=== PATIENT | male | born 1940 | race Caucasian/White ===

== ENCOUNTER → 2016-09-01 | Outpatient (CLI) | payer BC ==
[~2016-09-01] MED LIST: ASCO10003 PO; LUTE20CA; MULT-506 PO; PRIM50TA29 PO
== END | disposition home or self-care (01) ==
LOC: C.LABBC 09:50
PROVIDERS: ATTEND Urology
DX: N40.1 Benign prostatic hyperplasia with lower urinary tract symptoms (principal)

== ENCOUNTER → 2017-01-15 | Outpatient (CLI) | payer BC ==
[2017-01-15 13:35] LABS: BASO % 0.6 %; BASO ABS # 0.04 K/uL (0-0.2); COMPLETE YES; EOS % 4.9 %; IG% 0.2 %; LYMPH % 27.1 %; LYMPH ABS # 1.72 K/uL (1.2-3.4); MEAN CORPUSCULAR HEMOGLOBIN 30.3 pg (25-34); MEAN CORPUSCULAR HGB CONC 32.9 g/dl (32-36); MEAN PLATELET VOLUME 10.1 fL (7.4-10.4); MONO % 7.9 %; NEUT % 59.3 %; PLATELET COUNT 207 K/uL (130-400); RED BLOOD COUNT 5.22 M/uL (4.7-6.1); WHITE BLOOD COUNT 6.35 K/uL (4.8-10.8)
[2017-01-15 13:54] LABS: ALT/SGPT 32 U/L (12-78); AST/SGOT 23 U/L (15-37); BLOOD UREA NITROGEN 14 mg/dl (7-18); BUN/CREATININE RATIO 14.2 (10-20); CALCIUM 8.3 mg/dl (8.5-10.1); CARBON DIOXIDE 30 mmol/L (21-32); CHLORIDE 110 mmol/L (98-107); GLUCOSE 97 mg/dl (70-99); POTASSIUM 4.3 mmol/L (3.5-5.1); SODIUM 145 mmol/L (136-145)
[2017-01-15 14:05] LABS: ALB/GLOB RATIO 1.2 (0.9-2); ALKALINE PHOSPHATASE 64 U/L (45-117); CHOLESTEROL 160 mg/dl (0-200); CHOLESTEROL/HDL RATIO 3.1; HDL CHOLESTEROL 52 mg/dl; LDL CHOLESTEROL CALCULATED 92 mg/dl; TRIGLYCERIDES 78 mg/dl (0-150); VERY LOW DENSITY LIPOPROT CALC 16 mg/dl
== END ==
LOC: C.LABBC 10:18
PROVIDERS: ATTEND Internal Medicine Pulmonary Disease
DX: Z00.00 Encounter for general adult medical examination without abnormal findings (principal); N40.1 Benign prostatic hyperplasia with lower urinary tract symptoms; G25.0 Essential tremor

== ENCOUNTER → 2017-04-01 | Outpatient (CLI) | payer BC ==
[2017-04-01 16:34] LABS: LYME DISEASE AB IGG NEG (NEG); LYME DISEASE AB IGM NEG (NEG)
== END | disposition home or self-care (01) ==
LOC: C.LAB1850 14:52
PROVIDERS: ATTEND Physician Assistant Medical
DX: R51 Headache (principal)

== ENCOUNTER → 2017-06-07 | Outpatient (CLI) | payer BC | END | disposition home or self-care (01) | LOC: C.LABBC 09:53 | PROVIDERS: ATTEND Urology | DX: N40.1 Benign prostatic hyperplasia with lower urinary tract symptoms (principal); R97.20 Elevated prostate specific antigen [PSA] ==

== ENCOUNTER → 2017-07-09 | Outpatient (CLI) | payer BC ==
[2017-07-09 15:25] LABS: LYME DISEASE AB IGG NEG (NEG)
[2017-07-09 15:34] LABS: LYME DISEASE AB IGM POS (NEG)
== END | disposition home or self-care (01) ==
LOC: C.LABBC 10:42
PROVIDERS: ATTEND Physician Assistant Medical
DX: T14.8XXA Other injury of unspecified body region, initial encounter (principal); W57.XXXA Bitten or stung by nonvenomous insect and other nonvenomous arthropods, initial encounter

== ENCOUNTER 2017-12-27 16:18 | Inpatient (IN) | payer BC, OTHER ==
[~2017-12-27] VITALS: Ht 175.3 cm; Wt 41.5 kg
[2017-12-27 17:48] LABS: BASO % 0.6 %; BASO ABS # 0.06 K/uL (0-0.2); EOS % 3.2 %; HEMATOCRIT 50.3 % (42-52); HEMOGLOBIN 17.6 g/dL (14.0-18.0); IG# 0.03 K/uL (0.00-0.02); LYMPH % 16.8 %; LYMPH ABS # 1.58 K/uL (1.2-3.4); MEAN CELL VOLUME 92.8 fL (80-100); MEAN CORPUSCULAR HEMOGLOBIN 32.5 pg (25-34); MEAN PLATELET VOLUME 10.2 fL (7.4-10.4); MONO % 6.3 %; MONO ABS # 0.59 K/uL (0.11-0.59); NEUT % 72.8 %; NEUT ABS # 6.84 K/uL (1.4-6.5); PLATELET COUNT 187 K/uL (130-400); RED CELL DISTRIBUTION WIDTH CV 13.8 % (11.5-14.5); RED CELL DISTRIBUTION WIDTH SD 46.7 fL (36.4-46.3)
--- NOTE | 2017-12-27 17:48 | EMERGENCY ROOM VISIT NOTE ---
History Report prepared by Jacqueline: Ravi Pisano Under the Supervision of: Dr. Popeye Prieto M.D. First contact with patient: 17:21 Chief Complaint: HEADACHE Stated Complaint: HEADACHE- PERIPHERAL VISION IMPAIRED- DIZZY History of Present Illness The patient is a 77 year old male who presents to the Emergency Room with complaints of a persistent headache on both sides starting this morning when he woke up. He currently rates his discomfort as a 6-7/10 in severity. The patient states that he felt fine this morning, and he woke up with the headache, He also reports that he has a loss of vision in his right peripheral vision. He denies any speech difficulties, thinking difficulties, and any weakness in his arms or legs. The patient has a history of macular degeneration, though it has been under control for a long time. He is not on any blood thinners, and he has no history of A-fib or A-Flutter, though he take propranolol for tremor. The patient states that he took two Tylenol this morning, though nothing has helped the pain or his vision. Source of History: patient Onset: this morning Position: head Symptom Intensity: 6-7/10 Quality: ache Timing: other (persistent) Modifying Factors (Relieving): other (nothing) Associated Symptoms: No weakness Note: Associated symptoms: Peripheral vision loss in his right eye. Review of Systems See HPI for pertinent positives & negatives. A total of 10 systems reviewed and were otherwise negative. Past Medical & Surgical Medical Problems: (1) Macular degeneration Social History Smoking Status: Never Smoker Marital Status: Housing Status: lives with family Occupation Status: retired Current/Historical Medications Scheduled Ascorbic Acid (Vitamin C), MG PO DAILY Calcium Carbonate-Cholecalcife (Caltrate 600+D), 1 TAB PO DAILY Finasteride (Finasteride), 5 MG PO DAILY Lutein (Lutein), MG DAILY Multivitamin (Multivitamin), 1 TAB PO DAILY Propranolol (Inderal), 20 MG PO DAILY Allergies Coded Allergies: Sulfa Antibiotics (Verified Allergy, Unknown, HIVES, 12/27/17) Uncoded Allergies: [id number] (Allergy, Unknown, HIVES, 01/18/15) Sulfa Antibiotics Physical Exam Vital Signs Date Time Temp Pulse Resp B/P (MAP) Pulse Ox O2 Delivery O2 Flow Rate FiO2 12/27/17 17:26 61 18 151/93 96 Room Air 12/27/17 16:55 61 12/27/17 16:30 36.4 58 20 160/96 95 Physical Exam GENERAL: Patient is in no acute distress. HEENT: No acute trauma, normocephalic atraumatic, mucous membranes moist, no nasal congestion, no scleral icterus. NECK: No stridor, no adenopathy, no meningismus, trachea is midline. LUNGS: Clear to auscultation bilaterally, no wheeze, no rhonchi, breath sounds equal. HEART: Bradycardic with a regular rhythm. No murmur. ABDOMEN: Soft, nontender, bowel sounds positive, no hernias, no peritonitis. EXTREMITIES: No cyanosis or edema, full range of motion of all the joints without pain or difficulty, no signs for acute trauma. NEUROLOGIC: Awake, alert, and oriented x 3. No speech slur or facial droop. No pronator drift or cerebellar dysfunction. Right sided homonymous hemianopsia-- right sided vision in both eyes is absent. SKIN: No rash, no jaundice, no diaphoresis. Medical Decision & Procedures ER Provider Diagnostic Interpretation: Radiology results as stated below per my review and radiologist interpretation: HEAD WITHOUT CONTRAST (CT) CT DOSE: 614.27 mGy.cm HISTORY: Mental status change Stroke TECHNIQUE: Multiaxial CT images of the head were performed without the use of intravenous contrast. A dose lowering technique was utilized adhering to the principles of ALARA. Comparison: None. Findings: The paranasal sinuses and mastoid air cells are clear. The calvarium and skull base are intact. The ventricles and sulci are within normal limits. There is no mass, hematoma, midline shift, or acute infarct. Impression: No acute intracranial abnormality. The above report was generated using voice recognition software. It may contain grammatical, syntax or spelling errors. Electronically signed by: Alexandro Lepe M.D. 12/27/2017 6:01 PM Dictated Date/Time: 12/27/2017 6:01 PM Laboratory Results 12/27/17 16:05 Red Blood Count 5.42, Mean Corpuscular Volume 92.8, Mean Corpuscular Hemoglobin 32.5, Mean Corpuscular Hemoglobin Concent 35.0, Mean Platelet Volume 10.2, Neutrophils (%) (Auto) 72.8, Lymphocytes (%) (Auto) 16.8, Monocytes (%) (Auto) 6.3, Eosinophils (%) (Auto) 3.2, Basophils (%) (Auto) 0.6, Neutrophils # (Auto) 6.84, Lymphocytes # (Auto) 1.58, Monocytes # (Auto) 0.59, Eosinophils # (Auto) 0.30, Basophils # (Auto) 0.06 12/27/17 16:05 Test 12/27/17 16:05 12/27/17 16:55 White Blood Count 9.40 K/uL (4.8-10.8) Red Blood Count 5.42 M/uL (4.7-6.1) Hemoglobin 17.6 g/dL (14.0-18.0) Hematocrit 50.3 % (42-52) Mean Corpuscular Volume 92.8 fL (80-100) Mean Corpuscular Hemoglobin 32.5 pg (25-34) Mean Corpuscular Hemoglobin Concent 35.0 g/dl (32-36) Platelet Count 187 K/uL (130-400) Mean Platelet Volume 10.2 fL (7.4-10.4) Neutrophils (%) (Auto) 72.8 % Lymphocytes (%) (Auto) 16.8 % Monocytes (%) (Auto) 6.3 % Eosinophils (%) (Auto) 3.2 % Basophils (%) (Auto) 0.6 % Neutrophils # (Auto) 6.84 K/uL (1.4-6.5) Lymphocytes # (Auto) 1.58 K/uL (1.2-3.4) Monocytes # (Auto) 0.59 K/uL (0.11-0.59) Eosinophils # (Auto) 0.30 K/uL (0-0.5) Basophils # (Auto) 0.06 K/uL (0-0.2) RDW Standard Deviation 46.7 fL (36.4-46.3) RDW Coefficient of Variation 13.8 % (11.5-14.5) Immature Granulocyte % (Auto) 0.3 % Immature Granulocyte # (Auto) 0.03 K/uL (0.00-0.02) Prothrombin Time 10.9 SECONDS (9.0-12.0) Prothromb Time International Ratio 1.0 (0.9-1.1) Activated Partial Thromboplast Time 25.9 SECONDS (21.0-31.0) Partial Thromboplastin Ratio 1.0 Anion Gap 6.0 mmol/L (3-11) Est Creatinine Clear Calc Drug Dose 63.4 ml/min Estimated GFR () 74.7 Estimated GFR (Non- 64.4 BUN/Creatinine Ratio 12.3 (10-20) Calcium Level 8.4 mg/dl (8.5-10.1) Magnesium Level 2.2 mg/dl (1.8-2.4) Total Bilirubin 1.7 mg/dl (0.2-1) Direct Bilirubin 0.3 mg/dl (0-0.2) Aspartate Amino Transf (AST/SGOT) 31 U/L (15-37) Alanine Aminotransferase (ALT/SGPT) 28 U/L (12-78) Alkaline Phosphatase 72 U/L (45-117) Troponin I < 0.015 ng/ml (0-0.045) Total Protein 7.5 gm/dl (6.4-8.2) Albumin 3.8 gm/dl (3.4-5.0) Thyroid Stimulating Hormone (TSH) 0.937 uIu/ml (0.300-4.500) Urine Color DK YELLOW Urine Appearance CLEAR (CLEAR) Urine pH 6.5 (4.5-7.5) Urine Specific [place] 1.023 (1.000-1.030) Urine Protein NEG (NEG) Urine Glucose (UA) NEG (NEG) Urine Ketones NEG (NEG) Urine Occult Blood NEG (NEG) Urine Nitrite NEG (NEG) Urine Bilirubin NEG (NEG) Urine Urobilinogen NEG (NEG) Urine Leukocyte Esterase NEG (NEG) Laboratory results reviewed by me. Medications Administered Medications (Trade) Dose Ordered Sig/Katlyn Route Start Time Stop Time Status Last Admin Dose Admin Aspirin (Aspirin Chew) 324 mg NOW STAT PO 12/27/17 18:14 12/27/17 18:15 DC 12/27/17 19:20 324 MG ECG Per My Interpretation Indication: other (headache and vision loss) Rate (beats per minute): 54 Rhythm: sinus bradycardia Findings: 1st degree AV block, no ectopy, other (old anterior infarct. No ST elevation or PVC) ED Course 1721: The patient was evaluated in room B7. A complete history and physical exam was performed. 1733: I discussed the patient's case with Dr. Jacy PEÑA Neurology, and she states that the patient should be evaluated by the hospitalist. If the CT does not show blood, then he should be put on aspirin, and he should not get any TPA. 181: Aspirin 324mg PO 184: Upon reexamination the patient is doing fine. I discussed results and treatment plan with the patient. He verbalizes agreement and understanding. The patient will be evaluated for further management. 185: Discussed the patient's case with Dr. Katrin PEÑA Hospitalist. The patient will be evaluated for further management. Medical Decision Differential Diagnoses include: CVA, intracranial bleeding, intracranial mass, retinal damage, vitreous hemorrhage, anemia, electrolyte imbalance, dysrhythmia. There is no leukocytosis or concerning anemia. No significant electrolyte abnormality, kidney failure or hepatitis. The patient appears to be in a euthyroid state. Urinalysis does not show infection. Brain CT shows no acute bleed or mass-effect. EKG shows a sinus bradycardia with a first-degree AV block, no acute ischemic change. Cardiac enzyme testing 1 is not consistent with acute cardiac injury. On exam, there are no focal extremity deficits. There is no speech slur. The patient does have findings consistent with a right -sided homonymous hemianopsia. The patient presents with visual difficulties. I am concerned for a small stroke. He is not a TPA candidate as he is far out of the window for this medication. I did speak with neurology here at our hospital, aspirin orally was recommended, a dose was given. The patient will be brought into our hospital for a stroke workup. Case management has been involved. The on-call hospitalist was consulted. Patient is aware of all his findings. Medication Reconcilliation Current Medication List: was personally reviewed by me Blood Pressure Screening Patient's blood pressure: Elevated blood pressure Monitored by the hospitalist. Consults Time Called: 173 Consulting Physician: Dr. Jacy PEÑA Neurology Returned Call: 173 I discussed the patient's case with Dr. Jacy PEÑA Neurology, and she states that the patient should be evaluated by the hospitalist. If the CT does not show blood, then he should be put on aspirin, and he should not get any TPA. Additional Consults: Time Called: 181 Consulted Physician: Dr. Katrin PEÑA Hospitalist Returned Call: [phone] Additional Comments: Discussed the patient's case with Dr. Katrin Cruz [facility] Hospitalist. The patient will be evaluated for further management. Impression Primary Impression: CVA (cerebral vascular accident) Additional Impression: Right homonymous hemianopsia Scribe Attestation The scribe's documentation has been prepared under my direction and personally reviewed by me in its entirety. I confirm that the note above accurately reflects all work, treatment, procedures, and medical decision making performed by me. Departure Information Dispostion Being Evaluated By Hospitalist Referrals Wayne Barrera M.D. (PCP) Patient Instructions My [facility] Stroke History Time Last Known Well yesterday evening Stroke t-PA Criteria Reviewed Does NOT meet criteria for t-PA Reason t-PA Not Given Treatment not indicated Problem Qualifiers
[2017-12-27 17:56] LABS: ALBUMIN 3.8 gm/dl (3.4-5.0); ALT/SGPT 28 U/L (12-78); AST/SGOT 31 U/L (15-37); BLOOD UREA NITROGEN 14 mg/dl (7-18); CALCIUM 8.4 mg/dl (8.5-10.1); CARBON DIOXIDE 26 mmol/L (21-32); GLUCOSE 94 mg/dl (70-99); SODIUM 141 mmol/L (136-145)
[2017-12-27 18:01] LABS: PTT PATIENT 25.9 SECONDS (21.0-31.0)
--- NOTE | 2017-12-27 18:03 | DIAGNOSTIC IMAGING REPORT ---
HEAD WITHOUT CONTRAST (CT) CT DOSE: 614.27 mGy.cm HISTORY: Mental status change Stroke TECHNIQUE: Multiaxial CT images of the head were performed without the use of intravenous contrast. A dose lowering technique was utilized adhering to the principles of ALARA. Comparison: None. Findings: The paranasal sinuses and mastoid air cells are clear. The calvarium and skull base are intact. The ventricles and sulci are within normal limits. There is no mass, hematoma, midline shift, or acute infarct. Impression: No acute intracranial abnormality. The above report was generated using voice recognition software. It may contain grammatical, syntax or spelling errors. Electronically signed by: Alexandro Lepe M.D. 12/27/2017 6:01 PM Dictated Date/Time: 12/27/2017 6:01 PM
[2017-12-27 18:07] LABS: ALKALINE PHOSPHATASE 72 U/L (45-117); TOTAL PROTEIN 7.5 gm/dl (6.4-8.2)
[2017-12-27] MEDS ORDERED: CALC-354 PO (18:12)
[2017-12-27] MEDS ORDERED: PRS5 PO (18:12)
[2017-12-27] MEDS ORDERED: PROP20TA67 PO (18:12)
[2017-12-27] MEDS ORDERED: ASPIRIN 81 MG CHEW PO STA (18:14)
[2017-12-27] MEDS ORDERED: PHARMACIST DISCHARGE MED REC CONSULT PRN (19:15)
[2017-12-27] MEDS ORDERED: MAGNESIUM HYDROXIDE SUSP 30 ML UDC PO PRN (19:15)
[2017-12-27] MEDS ORDERED: ONDANSETRON INJ 2 MG/ML 2 ML VIAL IV PRN (19:15)
[2017-12-27] MEDS ORDERED: POLYETHYLENE (MIRALAX) 17 GM PACK PO PRN (19:15)
[2017-12-27] MEDS ORDERED: ACETAMINOPHEN 325 MG TAB PO PRN (19:15)
[2017-12-27] MEDS ORDERED: ALUMINUM/MAGNESIUM/SIMETH (MAALOX MAX) 30 ML UDC PO PRN (19:15)
--- NOTE | 2017-12-27 20:03 | History and Physical ---
History & Physical Date & Time of Service: December 27, 2017 at 19:29 Chief Complaint: Headache- Peripheral Vision Impaired- Dizzy Primary Care Physician: Wayne Barrera M.D. History of Present Illness Source: patient, family Mr. Bond is a 77 y/o male with PMHx of Essential Tremor, Heart Murmur, and BPH who presents with R peripheral vision loss and headache that started this AM. Patient states he was in his normal state of health last night upon going to bed. He woke up today around 0630 with a headache that spans the length of his forehead. He also noticed loss of the R peripheral visual burns. He decided to go back to sleep and when he awoke at 1000 his symptoms remained. Patient reports following regularly with his eye doctor and has known macular degeneration but reports this has been stable for years. He is not aware of any other ocular diagnosis. He has never had any surgical procedures on his eyes. As well, he has never had any acute vision loss issues in the past or TIA/CVAs. No associated eye pain or blurring of vision. At this time, visual losses have not worsened or improved. Headache is slightly improved but minimal. He reports having intermittent headaches in the past but no specific migraines. He does report some lightheadedness when walking and thinks its related to visual deficits. He denies any other neurological deficits or imbalances. Past Medical/Surgical History Medical Problems: (1) Macular Degeneration (2) Heart Murmur - Unspecified (3) BPH (4) Elevated PSA (5) Dupuytrens Contracture - R Thumb S/P Repair (6) Inguinal Hernia B/L - S/P Repair (7) Essential Tremor Family History Alzheimers Disease Heart Disease Prostate Cancer Social History Smoking Status: Never Smoker Smokeless Tobacco Use: No Alcohol Use: socially Drug Use: none Marital Status: Occupational Status: retired Allergies Coded Allergies: Sulfa Antibiotics (Verified Allergy, Unknown, HIVES, 12/27/17) Uncoded Allergies: [id number] (Allergy, Unknown, HIVES, 01/18/15) Sulfa Antibiotics Home Medications Scheduled Ascorbic Acid (Vitamin C), MG PO DAILY Calcium Carbonate-Cholecalcife (Caltrate 600+D), 1 TAB PO DAILY Finasteride (Finasteride), 5 MG PO DAILY Lutein (Lutein), MG DAILY Multivitamin (Multivitamin), 1 TAB PO DAILY Propranolol (Inderal), 20 MG PO DAILY Review of Systems Constitutional: + problem reported (frontal headache), No fever, No chills Eyes: + worsening of vision (loss of R eye peripheral vision), No eye pain, No discharge, No diplopia ENT: No hearing loss, No nasal symptoms, No sore throat Respiratory: No cough, No shortness of breath Cardiovascular: No chest pain, No palpitations Abdomen: No pain, No nausea, No vomiting, No diarrhea, No constipation Musculoskeletal: No swelling, No calf pain Genitourinary - Male: No dysuria Neurologic: No weakness, No numbness/tingling, No balance problems Hematologic / Lymphatic: No abnormal bleeding/bruising Physical Exam Vital Signs Date Time Temp Pulse Resp B/P (MAP) Pulse Ox O2 Delivery O2 Flow Rate FiO2 12/27/17 19:24 78 18 156/89 96 Room Air 12/27/17 17:26 61 18 151/93 96 Room Air 12/27/17 16:55 61 12/27/17 16:30 36.4 58 20 160/96 95 General Appearance: WD/WN, no apparent distress Head: normocephalic, atraumatic Eyes: PERRL, EOMI, sclerae normal, + pertinent finding (Loss of R eye peripheral vision to approximately ) ENT: hearing grossly normal Neck: supple, no JVD, trachea midline Respiratory/Chest: lungs clear, normal breath sounds, no respiratory distress, no accessory muscle use Cardiovascular: regular rate, rhythm, + systolic murmur Abdomen/GI: normal bowel sounds, non tender, soft Back: normal inspection Extremities/Musculoskelatal: no pedal edema Neurologic/Psych: no motor/sensory deficits (other than visual loss - see Eyes section), alert, normal mood/affect, oriented x 3, + depressed affect, + disoriented, + pertinent finding (Romberg negative; GARCIA intact) Skin: normal color, warm/dry Diagnostics Laboratory Results Results Past 24 Hours Test 12/27/17 16:05 12/27/17 16:55 Range/Units White Blood Count 9.40 4.8-10.8 K/uL Red Blood Count 5.42 4.7-6.1 M/uL Hemoglobin 17.6 14.0-18.0 g/dL Hematocrit 50.3 42-52 % Mean Corpuscular Volume 92.8 80-100 fL Mean Corpuscular Hemoglobin 32.5 25-34 pg Mean Corpuscular Hemoglobin Concent 35.0 32-36 g/dl Platelet Count 187 130-400 K/uL Mean Platelet Volume 10.2 7.4-10.4 fL Neutrophils (%) (Auto) 72.8 % Lymphocytes (%) (Auto) 16.8 % Monocytes (%) (Auto) 6.3 % Eosinophils (%) (Auto) 3.2 % Basophils (%) (Auto) 0.6 % Neutrophils # (Auto) 6.84 1.4-6.5 K/uL Lymphocytes # (Auto) 1.58 1.2-3.4 K/uL Monocytes # (Auto) 0.59 0.11-0.59 K/uL Eosinophils # (Auto) 0.30 0-0.5 K/uL Basophils # (Auto) 0.06 0-0.2 K/uL RDW Standard Deviation 46.7 36.4-46.3 fL RDW Coefficient of Variation 13.8 11.5-14.5 % Immature Granulocyte % (Auto) 0.3 % Immature Granulocyte # (Auto) 0.03 0.00-0.02 K/uL Prothrombin Time 10.9 9.0-12.0 SECONDS Prothromb Time International Ratio 1.0 0.9-1.1 Activated Partial Thromboplast Time 25.9 21.0-31.0 SECONDS Partial Thromboplastin Ratio 1.0 Sodium Level 141 136-145 mmol/L Potassium Level 4.0 3.5-5.1 mmol/L Chloride Level 109 98-107 mmol/L Carbon Dioxide Level 26 21-32 mmol/L Anion Gap 6.0 3-11 mmol/L Blood Urea Nitrogen 14 7-18 mg/dl Creatinine 1.10 0.60-1.40 mg/dl Est Creatinine Clear Calc Drug Dose 63.4 ml/min Estimated GFR () 74.7 Estimated GFR (Non- 64.4 BUN/Creatinine Ratio 12.3 10-20 Random Glucose 94 70-99 mg/dl Calcium Level 8.4 8.5-10.1 mg/dl Magnesium Level 2.2 1.8-2.4 mg/dl Total Bilirubin 1.7 0.2-1 mg/dl Direct Bilirubin 0.3 0-0.2 mg/dl Aspartate Amino Transf (AST/SGOT) 31 15-37 U/L Alanine Aminotransferase (ALT/SGPT) 28 12-78 U/L Alkaline Phosphatase 72 45-117 U/L Troponin I < 0.015 0-0.045 ng/ml Total Protein 7.5 6.4-8.2 gm/dl Albumin 3.8 3.4-5.0 gm/dl Thyroid Stimulating Hormone (TSH) 0.937 0.300-4.500 uIu/ml Urine Color DK YELLOW Urine Appearance CLEAR CLEAR Urine pH 6.5 4.5-7.5 Urine Specific [place] 1.023 1.000-1.030 Urine Protein NEG NEG Urine Glucose (UA) NEG NEG Urine Ketones NEG NEG Urine Occult Blood NEG NEG Urine Nitrite NEG NEG Urine Bilirubin NEG NEG Urine Urobilinogen NEG NEG Urine Leukocyte Esterase NEG NEG Diagnostic Radiology HEAD WITHOUT CONTRAST (CT) Findings: The paranasal sinuses and mastoid air cells are clear. The calvarium and skull base are intact. The ventricles and sulci are within normal limits. There is no mass, hematoma, midline shift, or acute infarct. Impression: No acute intracranial abnormality. EKG Sinus bradycardia with 1st degree A-V block Anterior infarct (cited on or before 14-APR-1995) Abnormal ECG When compared with ECG of 14-APR-1995 11:56, AK interval has increased Questionable change in initial forces of Anteroseptal leads Nonspecific T wave abnormality now evident in Anterior leads Impression Assessment and Plan Mr. Bond is a 77 y/o male with PMHx of Essential Tremor, Heart Murmur, and BPH who presents with R peripheral vision loss and headache that started this AM R Eye Peripheral Loss and Headache: R/O CVA - Symptoms started at 0630 and haven't changed at this point minus a slight reduction in headache - Head CT unremarkable and will obtain MRI and CTA Head/Neck; Obtain echo with bubble study to assess for shunt - Admit to telemetry for rhythm monitoring - no known arrhythmias - Does have known macular degeneration that has been stable and sees an eye doctor regularly - ASA 81 mg daily; Atorvastatin 40 mg daily; Check Lipid panel and A1c - Consult Neurology - appreciate input Essential Tremor: - Propranolol 20 mg daily BPH: - Proscar 5 mg daily DVT Prophylaxis: Lovenox Code Status: FULL RESUSCITATION Disposition: - PT/OT evaluations Resident Physician Supervision Note: I was present with Dr. Waqas Carroll PA during the history and exam. I discussed the case with the PA and agree with the findings and plan as documented in the note. Any exceptions or clarifications are listed here: 77 y/o M Hx BPH, unspecified murmur presenting with acute visual impairment - appears to have loss of lat field of R eye (right homonymous hemianopsia) - admitted therefore with CVA protocol OE AAO x 3 S1,2 R CTAB NT, ND No CCE field deficit as above - no additional focal findings present P: Neuro consult ASA, Statin MRI/MRA, carotid dopplers pending Assigned to telemetry with neurochecks Documented By: Bruno Wilkes Resuscitation Status VTE Prophylaxis Will order VTE Prophylaxis: Yes
[2017-12-27 22:13] VITALS: BP 163/87; PULSE 60; TEMP 36.5; O2SAT 97
[2017-12-27] MEDS ORDERED: OPTIRAY 320 IV PRN (22:15)
--- NOTE | 2017-12-27 22:21 | DIAGNOSTIC IMAGING REPORT ---
HEAD ANGIO WITH CONTRAST CLINICAL HISTORY: Mental status change Vision loss TECHNIQUE: Transaxial acquisition with multi axial reformatted images COMPARISON STUDY: None FINDINGS: Normal intracranial vasculature. No major stenotic process. All structures of the anterior middle and posterior cerebral circulation are unremarkable. Visualized components of the vertebral basilar system are unremarkable. No aneurysm or dissection. IMPRESSION: Negative study The above report was generated using voice recognition software. It may contain grammatical, syntax or spelling errors. Electronically signed by: Alexandro Lepe M.D. 12/27/2017 10:19 PM Dictated Date/Time: 12/27/2017 10:16 PM
--- NOTE | 2017-12-27 22:23 | DIAGNOSTIC IMAGING REPORT ---
NECK ANGIO WITH CONTRAST HISTORY: Mental status change visual loss TECHNIQUE: Multiaxial CT images of the neck were performed following the intravenous administration of contrast to evaluate the major cervical vessels. Maximum intensity projection images were also obtained. All measurements were calculated based on NASCET criteria. A dose lowering technique was utilized adhering to the principles of ALARA. COMPARISON STUDY: None. FINDINGS: The aortic arch and proximal great vessels are widely patent. There is no significant stenosis, occlusion, or dissection identified within the bilateral common carotid, internal carotid, or vertebral arteries. Minimal/mild scattered plaque formation of the carotid bifurcations. No major stenotic process. No evidence for aneurysm or dissection IMPRESSION: No significant stenosis, occlusion, or dissection identified within the carotid or vertebral arteries. Mild scattered atherosclerotic plaque formation. The above report was generated using voice recognition software. It may contain grammatical, syntax or spelling errors. Electronically signed by: Alexandro Lepe M.D. 12/27/2017 10:22 PM Dictated Date/Time: 12/27/2017 10:20 PM
[2017-12-27 22:35] VITALS: BP 163/87; PULSE 60; TEMP 36.5; O2SAT 97; Ht 175.3 cm; Wt 41.5 kg
[2017-12-27] MEDS: ENOXAPARIN 40 MG/0.4 ML SYR SC SCH (23:54)
[2017-12-28] VITALS (12 sets, daily range): BP systolic 98–171; BP diastolic 61–88; PULSE 54–103; TEMP 36.2–37.2; O2SAT 92–97
[2017-12-28 05:57] LABS: BASO % 0.4 %; BASO ABS # 0.03 K/uL (0-0.2); EOS % 4.1 %; EOS ABS # 0.28 K/uL (0-0.5); HEMATOCRIT 47.5 % (42-52); HEMOGLOBIN 16.2 g/dL (14.0-18.0); IG# 0.01 K/uL (0.00-0.02); LYMPH % 18.6 %; LYMPH ABS # 1.28 K/uL (1.2-3.4); MEAN CELL VOLUME 92.8 fL (80-100); MEAN CORPUSCULAR HEMOGLOBIN 31.6 pg (25-34); MEAN CORPUSCULAR HGB CONC 34.1 g/dl (32-36); MEAN PLATELET VOLUME 9.6 fL (7.4-10.4); MONO % 9.3 %; MONO ABS # 0.64 K/uL (0.11-0.59); NEUT % 67.5 %; NEUT ABS # 4.65 K/uL (1.4-6.5); PLATELET COUNT 147 K/uL (130-400); RED CELL DISTRIBUTION WIDTH CV 13.6 % (11.5-14.5); RED CELL DISTRIBUTION WIDTH SD 46.5 fL (36.4-46.3); WHITE BLOOD COUNT 6.89 K/uL (4.8-10.8)
[2017-12-28 06:27] LABS: CREATININE 0.94 mg/dl (0.60-1.40); POTASSIUM 3.8 mmol/L (3.5-5.1)
[2017-12-28 06:43] LABS: HEMOGLOBIN A1C 5.1 % (4.5-5.6)
[2017-12-28] MEDS: MULTIVITAMIN TAB PO SCH (08:07)
[2017-12-28] MEDS: PROPRANOLOL HCL 20 MG TAB PO SCH (08:07)
[2017-12-28] MEDS: ASPIRIN 81 MG ECTAB PO SCH (08:07)
[2017-12-28] MEDS: FINASTERIDE 5 MG TAB PO SCH (08:08)
--- NOTE | 2017-12-28 08:47 | Hospitalist Progress Note ---
Hospitalist Progress Note Date of Service December 28, 2017. (Maria Esther Ramesh PA-C) Subjective Pt evaluation today including: conversation w/ patient, conversation w/ family , physical exam, chart review, lab review, review of studies Pain: left frontal headache PO Intake: far Voiding: no voiding problems The patient was seen and examined this morning. Pt reports doing ok other than having a throbbing left sided headache rate 9/10, and reports the right-sided peripheral vision loss has improved. Patient notes that he has worsening headache with any motion or turning of his head. He denies any photophobia or phonophobia. Patient has never experienced this type of headache before and has not significantly improved since time of admission yesterday. He is requesting something for pain. He denies any issues with shortness of breath, chest pain, lightheadedness or dizziness. His is present at bedside. Discussion was held regarding patient's CT of the head which was negative. He also had an echocardiogram completed which was negative for any shunt. MRI has been ordered and will await results of this to rule out any ischemic event. Neurology has been to evaluate the patient. Additional Comments: Constitutional: No fever, sweats or chills -see HPI regarding headache Eyes: No diplopia, no worsening or blurred vision, + right-sided peripheral vision loss improved ENT: normal hearing, no trouble swallowing Respiratory: No cough, sputum, dyspnea at rest or on exertion Cardiovascular: No chest pain, tightness or palpitations, no lightheadedness, no dizziness Abdomen: No pain, nausea, vomiting, diarrhea or constipation Musculoskeletal: No joint pain, calf pain, swelling Neurologic: No weakness, numbness/tingling, or balance problems Psychiatric: No anxiety or depression Skin: No rash or itch (Maria Esther Ramesh PA-C) Objective Vital Signs Date Time Temp Pulse Resp B/P (MAP) Pulse Ox O2 Delivery O2 Flow Rate FiO2 12/28/17 07:44 37.2 62 18 171/88 (115) 93 Room Air 12/28/17 04:00 97 Room Air 12/28/17 04:00 37.1 62 18 98/61 (73) 95 12/28/17 00:24 37.0 54 20 150/88 (108) 95 Room Air 12/28/17 00:00 97 Room Air 12/27/17 22:35 36.5 60 20 163/87 97 Room Air 12/27/17 22:13 36.5 60 20 163/87 (112) 97 Room Air 12/27/17 19:24 78 18 156/89 96 Room Air 12/27/17 17:26 61 18 151/93 96 Room Air 12/27/17 16:55 61 12/27/17 16:30 36.4 58 20 160/96 95 (Maria Esther Ramesh PA-C) Physical Exam Notes: General: awake, alert, no apparent distress Head: Normocephalic, atraumatic ENT: PERRL, EOMI, peripheral visual burns intact bilaterally, no pharyngeal exudate, mucous membranes moist, + R sided superior trapezius tension compared to the L. Chest: Clear to auscultation, on room air, no adventitious breath sounds Cardiac: Regular rate and rhythm, few extra beats, no murmur, no JVD, normal peripheral pulses, good capillary refill Abdominal: NABS x 4 quadrants, soft, nontender to palpation, no rebound, guarding or tenderness Extremities: Normal inspection, no peripheral edema or erythema, calfs nontender to palpation Psych: Normal mood and affect Neuro: AAO x 3, strength intact bilaterally and related 5/5, no motor deficits, speech is clear, no peripheral sensory deficits (Maria Esther Ramesh, ERASTO-C) Laboratory Results Last 24 Hours Test 12/27/17 16:05 12/27/17 16:55 12/28/17 05:32 White Blood Count 9.40 K/uL 6.89 K/uL Red Blood Count 5.42 M/uL 5.12 M/uL Hemoglobin 17.6 g/dL 16.2 g/dL Hematocrit 50.3 % 47.5 % Mean Corpuscular Volume 92.8 fL 92.8 fL Mean Corpuscular Hemoglobin 32.5 pg 31.6 pg Mean Corpuscular Hemoglobin Concent 35.0 g/dl 34.1 g/dl Platelet Count 187 K/uL 147 K/uL Mean Platelet Volume 10.2 fL 9.6 fL Neutrophils (%) (Auto) 72.8 % 67.5 % Lymphocytes (%) (Auto) 16.8 % 18.6 % Monocytes (%) (Auto) 6.3 % 9.3 % Eosinophils (%) (Auto) 3.2 % 4.1 % Basophils (%) (Auto) 0.6 % 0.4 % Neutrophils # (Auto) 6.84 K/uL 4.65 K/uL Lymphocytes # (Auto) 1.58 K/uL 1.28 K/uL Monocytes # (Auto) 0.59 K/uL 0.64 K/uL Eosinophils # (Auto) 0.30 K/uL 0.28 K/uL Basophils # (Auto) 0.06 K/uL 0.03 K/uL RDW Standard Deviation 46.7 fL 46.5 fL RDW Coefficient of Variation 13.8 % 13.6 % Immature Granulocyte % (Auto) 0.3 % 0.1 % Immature Granulocyte # (Auto) 0.03 K/uL 0.01 K/uL Prothrombin Time 10.9 SECONDS Prothromb Time International Ratio 1.0 Activated Partial Thromboplast Time 25.9 SECONDS Partial Thromboplastin Ratio 1.0 Sodium Level 141 mmol/L 141 mmol/L Potassium Level 4.0 mmol/L 3.8 mmol/L Chloride Level 109 mmol/L 107 mmol/L Carbon Dioxide Level 26 mmol/L 28 mmol/L Anion Gap 6.0 mmol/L 6.0 mmol/L Blood Urea Nitrogen 14 mg/dl 11 mg/dl Creatinine 1.10 mg/dl 0.94 mg/dl Est Creatinine Clear Calc Drug Dose 63.4 ml/min 74.1 ml/min Estimated GFR () 74.7 90.3 Estimated GFR (Non- 64.4 77.9 BUN/Creatinine Ratio 12.3 11.2 Random Glucose 94 mg/dl 100 mg/dl Calcium Level 8.4 mg/dl 8.0 mg/dl Magnesium Level 2.2 mg/dl Total Bilirubin 1.7 mg/dl Direct Bilirubin 0.3 mg/dl Aspartate Amino Transf (AST/SGOT) 31 U/L Alanine Aminotransferase (ALT/SGPT) 28 U/L Alkaline Phosphatase 72 U/L Troponin I < 0.015 ng/ml Total Protein 7.5 gm/dl Albumin 3.8 gm/dl Thyroid Stimulating Hormone (TSH) 0.937 uIu/ml Urine Color DK YELLOW Urine Appearance CLEAR Urine pH 6.5 Urine Specific [place] 1.023 Urine Protein NEG Urine Glucose (UA) NEG Urine Ketones NEG Urine Occult Blood NEG Urine Nitrite NEG Urine Bilirubin NEG Urine Urobilinogen NEG Urine Leukocyte Esterase NEG Estimated Average Glucose 100 mg/dl Hemoglobin A1c 5.1 % Triglycerides Level 110 mg/dl Cholesterol Level 135 mg/dl HDL Cholesterol 43 mg/dl LDL Cholesterol, Calculated 70 mg/dl VLDL Cholesterol, Calculated 22 mg/dl Cholesterol/HDL Ratio 3.1 (Maria Esther Ramesh PA-C) Assessment and Plan Mr. Bond is a 77 y/o male with PMHx of Essential Tremor, Heart Murmur, and BPH who presents with R peripheral vision loss and headache that started this AM R Eye Peripheral Loss and Headache Acute infarction of L occipital lobe - MRI completed: 1. Acute infarction of the left occipital lobe measures up to 1.7 cm with moderate associated cytotoxic edema. No hemorrhage, midline shift or abnormal enhancement. 2. Mild to moderate atrophy with chronic microvascular ischemic changes. 3. Mild paranasal sinus disease. - Symptoms started at 0630 on 12/27 and have not truly improved. Currently rates BASURTO as 05/02 - Head CT unremarkable - CTA Head/Neck was also negative for stenosis occlusion, and vessels are widely patent - 2D echo was low normal EF without WMA. - no shunt - Does have known macular degeneration that has been stable and sees an eye doctor regularly - ASA 81 mg daily - Consult Neurology- changed statin to pravastatin with low cholesterol as per lipid panel - Allow permissive HTN at this point per neuro recs - will need follow up within 4 weeks as an outpatient. - Will give 1x dose of tylenol 1000mg to see if any improvement Essential Tremor: - Propranolol 20 mg daily BPH: - Proscar 5 mg daily DVT Prophylaxis: Lovenox Code Status: FULL RESUSCITATION Disposition: - PT/OT evaluations, From home, lives with - possible dc tomorrow. (Maria Esther Ramesh PA-C) Reviewed: Pt Seen/Exam by Me (Laine Meraz MD) History Physician Plug Sorter supervision Note: I interviewed and examined the patient. Discussed with ERASTO Ramesh and agree with findings and plan as documented in the note. Any exceptions or clarifications are listed here: Patient reports headache is now improved after receiving acetaminophen a couple of hours ago. He still reports some right-sided visual loss, but it is much improved since admission. No weakness or paresthesias. 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 Most likely microvascular event given other findings of ischemic microvascular disease on MRI. -Continue telemetry monitoring, recommend cardiac event monitor after discharge to look for occult atrial fibrillation -Continue aspirin and pravastatin which are new to him for secondary prevention -Already has follow-up scheduled with neurology for his tremor this coming and he will keep that appointment -Follow-up with PCP within 1 week after discharge likely tomorrow -Continue acetaminophen as needed for headache -Continue permissive hypertension, doing fine even with being on propranolol -Needs follow-up with ophthalmology after discharge and we can help him arrange that prior to discharge-needs formal visual field testing -Informed him he is not to drive until after seen by ophthalmology Documented By: Laine Meraz (Laine Meraz MD)
[2017-12-28] MEDS ORDERED: ATORVASTATIN 40 MG TAB PO SCH (09:00)
--- NOTE | 2017-12-28 10:05 | ECHOCARDIOGRAM REPORT ---
*NOTICE TO RECEIVING DEMOCRAT AGENCY This information is strictly Confidential and protected under [place] law. [place] law prohibits you from making any further disclosure of this information unless further disclosure is expressly permitted by the written consent of the person to whom it pertains or is authorized by law. A general authorization for the release of medical or other information is not sufficient for this purpose. Hospital accepts no responsibility if the information is made available to any other person, INCLUDING THE PATIENT. Interpretation Summary * Name: JAKE GODDARD Study Date: 12/28/2017 08:16 AM BP: 98/61 mmHg * Patient Location: [facility]\S\N282\S\2 HR: 62 * : 1940 (M/d/yyyy) Gender: Male Height: 69 in * Age: 77 yrs Ethnicity: [place] Weight: 205 lb * Ordering Physician: Hortensia Carroll * Referring Physician: Self, Referred * Performed By: Santos Hernandez RCS * * Reason For Study: Cerebral Ischemia/Embolus * BSA: 2.1 m2 * No cardiac source of emboli noted. * -- Conclusions -- * Left ventricular systolic function is low normal. * Grade I diastolic dysfunction, (abnormal relaxation pattern). * The left atrium is moderately dilated. * There is mild mitral regurgitation. * Injection of contrast documented no interatrial shunt. * Right ventricular systolic pressure is normal. Procedure Details * A complete two-dimensional transthoracic echocardiogram was performed (2D, M-mode, Doppler and color flow Doppler). * A saline contrast injection was performed to assess for cardiac shunting. * The injection was performed through an intravenous line in the right arm. * The attending nurse who injected the saline contrast was Ying Hicks RN. * A total of 30 cc of agitated saline was given. Left Ventricle * The left ventricle is normal in size. * There is normal left ventricular wall thickness. * Left ventricular systolic function is low normal. * Ejection Fraction = 55-60%. * Grade I diastolic dysfunction, (abnormal relaxation pattern). * The left ventricular wall motion is normal. Right Ventricle * The right ventricle is normal in size and function. * The right ventricular systolic function is normal as assessed by tricuspid annular plane systolic excursion (TAPSE) (normal >1.5 cm). Atria * The left atrium is moderately dilated. * Borderline right atrial enlargement. * The interatrial septum is intact with no evidence for an atrial septal defect. * Injection of contrast documented no interatrial shunt. Mitral Valve * The mitral valve anatomy is normal. * There is mild mitral regurgitation. Tricuspid Valve * The tricuspid valve is not well visualized, but is grossly normal. * There is mild tricuspid regurgitation. * Right ventricular systolic pressure is normal. Aortic Valve * The aortic valve is normal in structure and function. * The aortic valve is trileaflet. * No hemodynamically significant valvular aortic stenosis. * There is no significant aortic regurgitation. Pulmonic Valve * The pulmonic valve is not well visualized. Great Vessels * The aortic root is normal size. Pericardium/Pleural * There is no pericardial effusion. Great Vessels * Normal inferior vena cava diameter and respiratory variation suggests normal central venous pressure. MMode 2D Measurements and Calculations IVSd 1.1 cm IVSs 1.4 cm LVIDd 4.7 cm LVIDs 2.7 cm LVPWd 1.1 cm LVPWs 1.7 cm IVS/LVPW 1.0 FS 41.4 % EDV(Teich) 101.5 ml ESV(Teich) 28.1 ml EF(Teich) 72.3 % EDV(cubed) 102.6 ml ESV(cubed) 20.7 ml EF(cubed) 79.9 % % IVS thick 26.4 % % LVPW thick 55.1 % LV mass(C)d 187.2 grams LV mass(C)dI 89.7 grams/m\S\2 LV mass(C)s 149.9 grams LV mass(C)sI 71.8 grams/m\S\2 SV(Teich) 73.3 ml SI(Teich) 35.1 ml/m\S\2 SV(cubed) 82.0 ml SI(cubed) 39.3 ml/m\S\2 Ao root diam 3.8 cm Ao root area 11.1 cm\S\2 ACS 1.9 cm LA dimension 4.7 cm asc Aorta Diam 3.7 cm LA/Ao 1.3 EDV(MOD-sp4) 127.0 ml ESV(MOD-sp4) 54.0 ml EF(MOD-sp4) 57.5 % EDV(MOD-sp2) 127.0 ml ESV(MOD-sp2) 59.0 ml EF(MOD-sp2) 53.5 % SV(MOD-sp4) 73.0 ml SI(MOD-sp4) 35.0 ml/m\S\2 SV(MOD-sp2) 68.0 ml SI(MOD-sp2) 32.6 ml/m\S\2 Doppler Measurements and Calculations MV E max geovanni 78.1 cm/sec MV A max geovanni 95.3 cm/sec MV E/A 0.82 MV P1/2t max geovanni 95.4 cm/sec MV P1/2t 58.3 msec MVA(P1/2t) 3.8 cm\S\2 MV dec slope 479.8 cm/sec\S\2 MV dec time 0.27 sec Ao V2 max 100.3 cm/sec Ao max PG 4.0 mmHg Ao max PG (full) 1.3 mmHg LV V1 max PG 2.7 mmHg LV V1 max 82.0 cm/sec PA V2 max 91.0 cm/sec PA max PG 3.3 mmHg PI max geovanni 143.4 cm/sec PI max PG 8.2 mmHg PI dec slope 98.7 cm/sec\S\2 PI P1/2t 425.7 msec TR max geovanni 235.0 cm/sec
--- NOTE | 2017-12-28 10:10 | Neurology Consultation ---
Neurology Consultation Date of Consultation: December 28, 2017. Attending Physician: Bruno Wilkes M.D. Primary Care Physician: Wayne Barrera M.D. Reason for Consultation: Consultation for visual Loss History of Present Illness Source: patient, hospital records This is a 77-year-old right-handed male who presents for acute visual loss. Reports that he has never had anything like this in the past. Reports that it happened suddenly. Reports that just his right peripheral vision. Has an abnormal headache in association. Has some dizziness with head movement. No typical vertigo type quality. Denies that he was on any aspirin, antiplatelets , or statin medications at home. Denies any numbness or weakness. No changes with thinking. No chest pain or shortness of breath. No heart palpitations. No changes with the speech or swallowing. No changes with his walking. He has never had any strokelike symptoms in the past. CTA of the head and neck was reviewed and unremarkable. Some mild atherosclerotic plaques but no critical stenosis. CT of the head report and images reviewed by myself and unremarkable. Total cholesterol 135, LDL 70, HDL 43, triglycerides 110, hemoglobin A1c 5.1 Past Medical/Surgical History Medical Problems: (1) CVA (cerebral vascular accident) Status: Acute (2) Right homonymous hemianopsia Status: Acute Essential tremor Macular degeneration Family History Family history of dementia, CAD, and cancer Social History Patient is normally independent his activities of daily living. No tobacco use. Drinks approximately 2 shots of vodka per day. No illegal drug use. Smoking Status: Never smoker Smokeless Tobacco Use: No Alcohol Use: socially Drug Use: none Marital Status: Housing Status: lives with family Occupation Status: retired Allergies Coded Allergies: Sulfa Antibiotics (Verified Allergy, Unknown, HIVES, 12/27/17) Uncoded Allergies: [id number] (Allergy, Unknown, HIVES, 01/18/15) Sulfa Antibiotics Current Inpatient Medications Current Inpatient Medications Medications (Trade) Dose Ordered Sig/Katlyn Route Start Time Stop Time Status Last Admin Dose Admin Enoxaparin Sodium (Lovenox Inj) 40 mg Q24H SC 12/27/17 21:00 01/26/18 20:59 12/27/17 23:54 40 MG Acetaminophen (Tylenol Tab) 650 mg Q4H PRN PO 12/27/17 19:15 01/26/18 19:14 12/28/17 06:42 650 MG Al Hydrox/Mg Hydrox/Simethicone (Maalox Max Susp) 15 ml Q4H PRN PO 12/27/17 19:15 01/26/18 19:14 Magnesium Hydroxide (Milk Of Magnesia Susp) 30 ml Q12H PRN PO 12/27/17 19:15 01/26/18 19:14 Ondansetron HCl (Zofran Inj) 4 mg Q6H PRN IV 12/27/17 19:15 01/26/18 19:14 Polyethylene (Miralax Powder Packet) 17 gm DAILY PRN PO 12/27/17 19:15 01/26/18 19:14 Aspirin (Ecotrin Tab) 81 mg QAM PO 12/28/17 09:00 01/27/18 08:59 12/28/17 08:07 81 MG Miscellaneous Information (Pharmacist Discharge Med Rec Consult) 1 ea UD PRN N/A 12/27/17 19:15 01/26/18 19:14 Finasteride (Proscar Tab) 5 mg DAILY PO 12/28/17 09:00 01/27/18 08:59 12/28/17 08:08 5 MG Multivitamins (Multivitamin Tab) 1 tab DAILY PO 12/28/17 09:00 01/27/18 08:59 12/28/17 08:07 1 TAB Propranolol HCl (Inderal Tab) 20 mg DAILY PO 12/28/17 09:00 01/27/18 08:59 12/28/17 08:07 20 MG Atorvastatin Calcium (Lipitor Tab) 40 mg QAM PO 12/28/17 09:00 01/27/18 08:59 12/28/17 08:07 40 MG Ioversol (Optiray 320) 115 ml UD PRN IV 12/27/17 22:15 12/31/17 22:14 Review of Systems Complete review of systems otherwise negative except for the above-noted in HPI Physical Exam Vital Signs (Past 24 Hrs): Date Time Temp Pulse Resp B/P (MAP) Pulse Ox O2 Delivery O2 Flow Rate FiO2 12/28/17 08:00 93 Room Air 12/28/17 07:44 37.2 62 18 171/88 (115) 93 Room Air 12/28/17 04:00 97 Room Air 12/28/17 04:00 37.1 62 18 98/61 (73) 95 12/28/17 00:24 37.0 54 20 150/88 (108) 95 Room Air 12/28/17 00:00 97 Room Air 12/27/17 22:35 36.5 60 20 163/87 97 Room Air 12/27/17 22:13 36.5 60 20 163/87 (112) 97 Room Air 12/27/17 19:24 78 18 156/89 96 Room Air 12/27/17 17:26 61 18 151/93 96 Room Air 12/27/17 16:55 61 12/27/17 16:30 36.4 58 20 160/96 95 Gen.: Patient is alert and oriented in no acute distress lying in bed Heart: Regular rate and rhythm Extremities: No gross deformities or rashes noted Neurological examination: Mental status: Patient is alert and oriented to person place and time. Able to give his own history. Attention concentration normal for the situation. Remote and recent memory intact Speech is fluent without any dysarthria or aphasia noted Cranial nerves: Decreased visual field testing to counting on the right mostly right lower quadrant. Funduscopic examination was difficult to visualize. Pupils equally round and reactive to light. Extraocular muscles intact without nystagmus. No facial asymmetry noted. Facial sensation intact. Tongue midline. Good palatal elevation. Good shoulder shrug bilaterally. Hearing grossly intact voice. Strength: 5/5 both proximal and distal in all extremities .Tone is normal. Sensation: Grossly intact to light touch in all extremities Deep tendon reflexes: +1 in bilateral biceps and patellar. Toes are downgoing to plantar stimulation on the right and equivocal on the left Coordination: Patient has good finger to nose without dysmetria. Station within the bed is normal. Laboratory Results Past 24 Hours: 12/28/17 05:32 Red Blood Count 5.12, Mean Corpuscular Volume 92.8, Mean Corpuscular Hemoglobin 31.6, Mean Corpuscular Hemoglobin Concent 34.1, Mean Platelet Volume 9.6, Neutrophils (%) (Auto) 67.5, Lymphocytes (%) (Auto) 18.6, Monocytes (%) (Auto) 9.3, Eosinophils (%) (Auto) 4.1, Basophils (%) (Auto) 0.4, Neutrophils # (Auto) 4.65, Lymphocytes # (Auto) 1.28, Monocytes # (Auto) 0.64, Eosinophils # (Auto) 0.28, Basophils # (Auto) 0.03 12/28/17 05:32 Test 12/27/17 16:05 12/27/17 16:55 12/28/17 05:32 Prothrombin Time 10.9 SECONDS (9.0-12.0) Prothromb Time International Ratio 1.0 (0.9-1.1) Activated Partial Thromboplast Time 25.9 SECONDS (21.0-31.0) Partial Thromboplastin Ratio 1.0 Magnesium Level 2.2 mg/dl (1.8-2.4) Total Bilirubin 1.7 mg/dl (0.2-1) Direct Bilirubin 0.3 mg/dl (0-0.2) Aspartate Amino Transf (AST/SGOT) 31 U/L (15-37) Alanine Aminotransferase (ALT/SGPT) 28 U/L (12-78) Alkaline Phosphatase 72 U/L (45-117) Troponin I < 0.015 ng/ml (0-0.045) Total Protein 7.5 gm/dl (6.4-8.2) Albumin 3.8 gm/dl (3.4-5.0) Thyroid Stimulating Hormone (TSH) 0.937 uIu/ml (0.300-4.500) Urine Color DK YELLOW Urine Appearance CLEAR (CLEAR) Urine pH 6.5 (4.5-7.5) Urine Specific [place] 1.023 (1.000-1.030) Urine Protein NEG (NEG) Urine Glucose (UA) NEG (NEG) Urine Ketones NEG (NEG) Urine Occult Blood NEG (NEG) Urine Nitrite NEG (NEG) Urine Bilirubin NEG (NEG) Urine Urobilinogen NEG (NEG) Urine Leukocyte Esterase NEG (NEG) White Blood Count 6.89 K/uL (4.8-10.8) Red Blood Count 5.12 M/uL (4.7-6.1) Hemoglobin 16.2 g/dL (14.0-18.0) Hematocrit 47.5 % (42-52) Mean Corpuscular Volume 92.8 fL (80-100) Mean Corpuscular Hemoglobin 31.6 pg (25-34) Mean Corpuscular Hemoglobin Concent 34.1 g/dl (32-36) Platelet Count 147 K/uL (130-400) Mean Platelet Volume 9.6 fL (7.4-10.4) Neutrophils (%) (Auto) 67.5 % Lymphocytes (%) (Auto) 18.6 % Monocytes (%) (Auto) 9.3 % Eosinophils (%) (Auto) 4.1 % Basophils (%) (Auto) 0.4 % Neutrophils # (Auto) 4.65 K/uL (1.4-6.5) Lymphocytes # (Auto) 1.28 K/uL (1.2-3.4) Monocytes # (Auto) 0.64 K/uL (0.11-0.59) Eosinophils # (Auto) 0.28 K/uL (0-0.5) Basophils # (Auto) 0.03 K/uL (0-0.2) RDW Standard Deviation 46.5 fL (36.4-46.3) RDW Coefficient of Variation 13.6 % (11.5-14.5) Immature Granulocyte % (Auto) 0.1 % Immature Granulocyte # (Auto) 0.01 K/uL (0.00-0.02) Anion Gap 6.0 mmol/L (3-11) Est Creatinine Clear Calc Drug Dose 74.1 ml/min Estimated GFR () 90.3 Estimated GFR (Non- 77.9 BUN/Creatinine Ratio 11.2 (10-20) Estimated Average Glucose 100 mg/dl Hemoglobin A1c 5.1 % (4.5-5.6) Calcium Level 8.0 mg/dl (8.5-10.1) Triglycerides Level 110 mg/dl (0-150) Cholesterol Level 135 mg/dl (0-200) HDL Cholesterol 43 mg/dl LDL Cholesterol, Calculated 70 mg/dl VLDL Cholesterol, Calculated 22 mg/dl Cholesterol/HDL Ratio 3.1 Imaging As noted above in HPI Impression This is a 77-year-old male with a right homonymous hemianopsia highly concerning for acute ischemic stroke. No known stroke risk factors. Plan Agree with initiation of aspirin 81 mg daily for secondary stroke prevention I am changing the patient's statin medication to pravastatin since his total cholesterol is already on the low side and lowering total cholesterol less than [address] him at increased risk for intracranial hemorrhage. Follow-up echocardiogram results MRI of the brain is pending Recommend ophthalmology evaluation with visual field testing as an outpatient. Discussed no driving until then. Follow-up PT/OT therapies for discharge planning. Blood pressure recommendations while in hospital 175/95-150/80 (MAPS 90-110) Avoid hypotension and dehydration Stroke risk factor modifications and recommendations: Blood pressure recommendations for the first month post hospital discharge 150/ 90-130/80, and after that blood pressure recommendations 130/80-110/70 Total cholesterol goal 100- 200 and LDL goal less than 100 Hemoglobin A1c goal less than 7 Encourage cardiovascular exercise at least 3 times a week for 30 minutes. Follow-up in neurology clinic in 1 month for post stroke hospital follow-up. If there is any questions or concerns, feel free to call/page me.
[2017-12-28] MEDS ORDERED: SUMATRIPTAN SUCCINATE 50 MG TAB PO STA (12:27)
[2017-12-28] MEDS ORDERED: ACETAMINOPHEN 500 MG TAB PO SCH (13:00)
[2017-12-28] MEDS ORDERED: ACETAMINOPHEN 500 MG TAB PO STA (13:16)
[2017-12-28] MEDS ORDERED: GADAVIST IV PRN (14:30)
--- NOTE | 2017-12-28 14:41 | DIAGNOSTIC IMAGING REPORT ---
BRAIN COMBO HISTORY: 77 years-old Male Stroke R/O; R Peripheral Field Vision Loss acute strokelike symptoms with headache and dizziness COMPARISON: Brain MRI 07/01/2012, CT head 12/27/2017 TECHNIQUE: Multiplanar multisequence MRI of the brain was obtained both with and without the use of 9 mL Gadavist FINDINGS: Recreational Leader localizer images demonstrate no gross abnormality. Midline structures including the corpus callosum, brainstem, optic chiasm, pituitary and pineal glands appear unremarkable on the sagittal T1 series. There is no cerebellar tonsillar herniation. Degenerative changes of the imaged cervical spine are noted. Diffusion-weighted images are motion degraded. Focal area of restricted diffusion involving the left occipital lobe measures up to 1.7 x 1.3 cm with decreased signal on ADC map. There is increased T2/FLAIR signal within this distribution as noted on image 24 series 6 and image 12 series 5 without associated enhancement. No abnormal intra-axial or extra-axial enhancement identified. There is mild to moderate brain atrophy. No acute intracranial hemorrhage, midline shift or abnormal extra-axial collections. Moderate degree of T2/FLAIR signal abnormalities are again noted within the deep, periventricular and subcortical white matter of the cerebral hemispheres bilaterally suggesting chronic microvascular ischemic changes. These have progressed from 07/01/2012 study. Major flow voids at the level of the skull base appear patent. Orbits are symmetric and within normal limits. Trace right mastoid effusion. Mild polypoid mucosal thickening of the left sphenoid sinus with mild right maxillary and bilateral ethmoid sinus disease. Soft tissues and skull are unremarkable. IMPRESSION: 1. Acute infarction of the left occipital lobe measures up to 1.7 cm with moderate associated cytotoxic edema. No hemorrhage, midline shift or abnormal enhancement. 2. Mild to moderate atrophy with chronic microvascular ischemic changes. 3. Mild paranasal sinus disease. The above report was generated using voice recognition software. It may contain grammatical, syntax or spelling errors. Electronically signed by: Mohan Franco M.D. 12/28/2017 2:39 PM Dictated Date/Time: 12/28/2017 2:32 PM
[2017-12-28] MEDS ORDERED: OXYCODONE HCL IR 5 MG TAB (IMMEDIATE RELEASE) PO PRN (16:15)
[2017-12-28] MEDS: IBUPROFEN 200 MG TAB PO PRN (20:44)
[2017-12-28] MEDS: ENOXAPARIN 40 MG/0.4 ML SYR SC SCH (20:45)
[2017-12-29] VITALS (7 sets, daily range): BP systolic 136–159; BP diastolic 79–92; PULSE 57–71; TEMP 36.6–37; O2SAT 94–96
[2017-12-29 05:51] LABS: BASO % 0.5 %; BASO ABS # 0.03 K/uL (0-0.2); EOS ABS # 0.24 K/uL (0-0.5); HEMATOCRIT 46.8 % (42-52); HEMOGLOBIN 16.1 g/dL (14.0-18.0); IG# 0.03 K/uL (0.00-0.02); LYMPH % 21.4 %; LYMPH ABS # 1.28 K/uL (1.2-3.4); MEAN CELL VOLUME 92.5 fL (80-100); MEAN CORPUSCULAR HEMOGLOBIN 31.8 pg (25-34); MEAN CORPUSCULAR HGB CONC 34.4 g/dl (32-36); MONO % 12.1 %; MONO ABS # 0.72 K/uL (0.11-0.59); NEUT % 61.5 %; NEUT ABS # 3.67 K/uL (1.4-6.5); PLATELET COUNT 123 K/uL (130-400); RED CELL DISTRIBUTION WIDTH CV 13.7 % (11.5-14.5); RED CELL DISTRIBUTION WIDTH SD 46.6 fL (36.4-46.3); WHITE BLOOD COUNT 5.97 K/uL (4.8-10.8)
[2017-12-29 06:16] LABS: CALCIUM 8.3 mg/dl (8.5-10.1); CREATININE 0.99 mg/dl (0.60-1.40); POTASSIUM 3.5 mmol/L (3.5-5.1)
[2017-12-29] MEDS: IBUPROFEN 200 MG TAB PO PRN (07:55)
[2017-12-29] MEDS: FINASTERIDE 5 MG TAB PO SCH (07:55)
[2017-12-29] MEDS: MULTIVITAMIN TAB PO SCH (07:55)
[2017-12-29] MEDS: ASPIRIN 81 MG ECTAB PO SCH (07:55)
[2017-12-29] MEDS: PROPRANOLOL HCL 20 MG TAB PO SCH (07:55)
--- NOTE | 2017-12-29 09:25 | Hospitalist Progress Note ---
Hospitalist Progress Note Date of Service December 29, 2017. (Maria Esther Ramesh PA-C) Subjective Pt evaluation today including: conversation w/ patient, physical exam, chart review, lab review, review of studies, conversation w/ vocational rehab consultant Pain: Headache PO Intake: Good Voiding: no voiding problems The patient was seen and examined this morning. Pt reports that he slept well overnight. This morning has complaints of worsening peripheral vision out of the right eye where he is only able to see what is directly in front of him. He also notes slight lightheadedness this morning, no dizziness or room spinning sensation. He denies any weakness, difficulty eating or swallowing with breakfast. He notes his headache is slightly improved overall but still present, and rates it a 4/10 compared to yesterday when it was a 9. Constitutional: No fever, No chills, No sweats, No fatigue Eyes: + see HPI, + worsening of vision, No eye pain, No redness, No diplopia ENT: No hearing loss, No unusual epistaxis, No nasal symptoms, No sore throat, No trouble swallowing Respiratory: No cough, No shortness of breath Cardiovascular: No chest pain, No palpitations Abdomen: No pain, No nausea, No vomiting, No diarrhea, No constipation Male : No dysuria, No incontinence Neurologic: No weakness, No numbness/tingling, No balance problems Heme: No abnormal bleeding/bruising Endo: No fatigue Skin: No rash, No itch (Maria Esther Ramesh PA-C) Objective Vital Signs Date Time Temp Pulse Resp B/P (MAP) Pulse Ox O2 Delivery O2 Flow Rate FiO2 12/29/17 08:01 36.9 57 20 159/79 (105) 94 Room Air 12/29/17 04:15 Room Air 12/29/17 04:00 37.0 68 16 136/91 (106) 95 Room Air 12/29/17 00:30 Room Air 12/28/17 23:46 36.7 103 18 155/81 (105) 92 Room Air 12/28/17 20:09 92 Room Air 12/28/17 19:04 36.2 63 18 139/78 (98) 95 Room Air 12/28/17 16:09 92 Room Air 12/28/17 15:09 36.8 76 18 149/85 (106) 92 12/28/17 12:00 96 Room Air 12/28/17 11:50 36.9 66 18 167/83 (111) 96 Room Air (Maria Esther Ramesh PA-C) Physical Exam General Appearance: WD/WN, no apparent distress Eyes: PERRL, EOMI, + pertinent finding (+ Loss of R sided peripheral visual burns. ) ENT: hearing grossly normal, TMs normal, pharynx normal, + pertinent finding ( no tongue deviation) Neck: supple, no JVD, + pertinent finding (no difficulty swallowing) Respiratory/Chest: lungs clear, no respiratory distress, no accessory muscle use Cardiovascular: regular rate, rhythm, no murmur Abdomen: normal bowel sounds, non tender, soft Extremities: non-tender, no pedal edema, no calf tenderness Neurologic/Psychiatric: reinforcer II-XII nml as tested (except lack of R peripheral field loss as above), alert, normal mood/affect, oriented x 3 Skin: normal color, warm/dry (Maria Esther Ramesh PA-C) Laboratory Results Last 24 Hours Test 12/29/17 05:25 White Blood Count 5.97 K/uL Red Blood Count 5.06 M/uL Hemoglobin 16.1 g/dL Hematocrit 46.8 % Mean Corpuscular Volume 92.5 fL Mean Corpuscular Hemoglobin 31.8 pg Mean Corpuscular Hemoglobin Concent 34.4 g/dl Platelet Count 123 K/uL Mean Platelet Volume 10.0 fL Neutrophils (%) (Auto) 61.5 % Lymphocytes (%) (Auto) 21.4 % Monocytes (%) (Auto) 12.1 % Eosinophils (%) (Auto) 4.0 % Basophils (%) (Auto) 0.5 % Neutrophils # (Auto) 3.67 K/uL Lymphocytes # (Auto) 1.28 K/uL Monocytes # (Auto) 0.72 K/uL Eosinophils # (Auto) 0.24 K/uL Basophils # (Auto) 0.03 K/uL RDW Standard Deviation 46.6 fL RDW Coefficient of Variation 13.7 % Immature Granulocyte % (Auto) 0.5 % Immature Granulocyte # (Auto) 0.03 K/uL Sodium Level 142 mmol/L Potassium Level 3.5 mmol/L Chloride Level 108 mmol/L Carbon Dioxide Level 27 mmol/L Anion Gap 6.0 mmol/L Blood Urea Nitrogen 11 mg/dl Creatinine 0.99 mg/dl Est Creatinine Clear Calc Drug Dose 36.7 ml/min Estimated GFR () 84.8 Estimated GFR (Non- 73.2 BUN/Creatinine Ratio 11.6 Random Glucose 114 mg/dl Calcium Level 8.3 mg/dl (Maria Esther Ramesh PA-C) Assessment and Plan Mr. Bond is a 77 y/o male with PMHx of Essential Tremor, Heart Murmur, and BPH who presents with R peripheral vision loss and headache that started this AM R Eye Peripheral Loss and Headache Acute infarction of L occipital lobe - MRI completed: 1. Acute infarction of the left occipital lobe measures up to 1.7 cm with moderate associated cytotoxic edema. No hemorrhage, midline shift or abnormal enhancement. 2. Mild to moderate atrophy with chronic microvascular ischemic changes. 3. Mild paranasal sinus disease. - Symptoms started at 0630 on 12/27: peripheral vision had improved yesterday however this morning are now worsened again where he has absent peripheral vision out of the R eye. CN were tested and otherwise negative. No weakness. - Pt complaint of lightheadedness this morning - asked nursing to walk with him at all times, encouraged pt to ring vazquez when he has needs. Check orthostatics - Will repeat CT head noncontrast to eval for evolvement, hemorrhagic conversion or worsening edema. - MRI did show cytotoxic edema as above. - CTA Head/Neck was also negative for stenosis occlusion, and vessels are widely patent - 2D echo was low normal EF without WMA. - no shunt - Does have known macular degeneration that has been stable and sees an eye doctor regularly - ASA 81 mg daily - Consult Neurology - notified of sx changes this morning and discussed w/ Dr. Louie. - Cont pravastatin - Allow permissive HTN at this point per neuro recs - Opthalmology appt f/u at dc - Event monitor x 2 weeks - will need follow up within 4 weeks as an outpatient. - Analgesia for BASURTO with ibuprofen or low dose oxycodone. Essential Tremor: - Propranolol 20 mg daily BPH: - Proscar 5 mg daily DVT Prophylaxis: Lovenox Code Status: FULL RESUSCITATION Disposition: - PT/OT evaluations, From home, lives with - possible dc tomorrow. (Maria Esther Ramesh, MACY)
--- NOTE | 2017-12-29 09:40 | Neurology Progress Notes ---
Neurology Progress Note Date of Service December 29, 2017. Subjective Patient reports worsening visual deficits this morning compared to yesterday. Feels that it may be even slightly worse than his initial presentation. No new neurological deficits otherwise. Denies any new numbness or weakness. No trouble with the speech. Still has headaches. Objective Date Time Temp Pulse Resp B/P (MAP) Pulse Ox O2 Delivery O2 Flow Rate FiO2 12/29/17 08:01 36.9 57 20 159/79 (105) 94 Room Air 12/29/17 04:15 Room Air 12/29/17 04:00 37.0 68 16 136/91 (106) 95 Room Air 12/29/17 00:30 Room Air 12/28/17 23:46 36.7 103 18 155/81 (105) 92 Room Air 12/28/17 20:09 92 Room Air 12/28/17 19:04 36.2 63 18 139/78 (98) 95 Room Air 12/28/17 16:09 92 Room Air 12/28/17 15:09 36.8 76 18 149/85 (106) 92 12/28/17 12:00 96 Room Air 12/28/17 11:50 36.9 66 18 167/83 (111) 96 Room Air Last 24 Hours Test 12/29/17 05:25 White Blood Count 5.97 K/uL Red Blood Count 5.06 M/uL Hemoglobin 16.1 g/dL Hematocrit 46.8 % Mean Corpuscular Volume 92.5 fL Mean Corpuscular Hemoglobin 31.8 pg Mean Corpuscular Hemoglobin Concent 34.4 g/dl Platelet Count 123 K/uL Mean Platelet Volume 10.0 fL Neutrophils (%) (Auto) 61.5 % Lymphocytes (%) (Auto) 21.4 % Monocytes (%) (Auto) 12.1 % Eosinophils (%) (Auto) 4.0 % Basophils (%) (Auto) 0.5 % Neutrophils # (Auto) 3.67 K/uL Lymphocytes # (Auto) 1.28 K/uL Monocytes # (Auto) 0.72 K/uL Eosinophils # (Auto) 0.24 K/uL Basophils # (Auto) 0.03 K/uL RDW Standard Deviation 46.6 fL RDW Coefficient of Variation 13.7 % Immature Granulocyte % (Auto) 0.5 % Immature Granulocyte # (Auto) 0.03 K/uL Sodium Level 142 mmol/L Potassium Level 3.5 mmol/L Chloride Level 108 mmol/L Carbon Dioxide Level 27 mmol/L Anion Gap 6.0 mmol/L Blood Urea Nitrogen 11 mg/dl Creatinine 0.99 mg/dl Est Creatinine Clear Calc Drug Dose 36.7 ml/min Estimated GFR () 84.8 Estimated GFR (Non- 73.2 BUN/Creatinine Ratio 11.6 Random Glucose 114 mg/dl Calcium Level 8.3 mg/dl Imaging: MRI of the brain report and images were reviewed. Patient does have a small left occipital ischemic stroke with some mild brain edema. Exam: Gen.: Patient is alert and oriented in no acute distress lying in bed Extremities: No gross deformities or rashes noted Neurological examination: Mental status: Patient is alert and oriented to person place and time. Able to give his own history. Attention concentration normal for the situation. Remote and recent memory intact Speech is fluent without any dysarthria or aphasia noted Cranial nerves: Decreased visual field testing to counting on the right mostly right lower quadrant, with some slight worsening in the right upper quadrant compared to yesterday. Extraocular muscles intact without nystagmus. No facial asymmetry noted. Facial sensation intact. Tongue midline. Hearing grossly intact voice. Strength: 5/5 both proximal and distal in all extremities. No arm drift.Tone is normal. Sensation: Grossly intact to light touch in all extremities Coordination: Patient has good finger to nose without dysmetria. Station within the bed is normal. Current Inpatient Medications Medications (Trade) Dose Ordered Sig/Katlyn Route Start Time Stop Time Status Last Admin Dose Admin Enoxaparin Sodium (Lovenox Inj) 40 mg Q24H SC 12/27/17 21:00 01/26/18 20:59 12/28/17 20:45 40 MG Acetaminophen (Tylenol Tab) 650 mg Q4H PRN PO 12/27/17 19:15 01/26/18 19:14 12/28/17 06:42 650 MG Al Hydrox/Mg Hydrox/Simethicone (Maalox Max Susp) 15 ml Q4H PRN PO 12/27/17 19:15 01/26/18 19:14 Magnesium Hydroxide (Milk Of Magnesia Susp) 30 ml Q12H PRN PO 12/27/17 19:15 01/26/18 19:14 Ondansetron HCl (Zofran Inj) 4 mg Q6H PRN IV 12/27/17 19:15 01/26/18 19:14 Polyethylene (Miralax Powder Packet) 17 gm DAILY PRN PO 12/27/17 19:15 01/26/18 19:14 Aspirin (Ecotrin Tab) 81 mg QAM PO 12/28/17 09:00 01/27/18 08:59 12/29/17 07:55 81 MG Miscellaneous Information (Pharmacist Discharge Med Rec Consult) 1 ea UD PRN N/A 12/27/17 19:15 01/26/18 19:14 Finasteride (Proscar Tab) 5 mg DAILY PO 12/28/17 09:00 01/27/18 08:59 12/29/17 07:55 5 MG Multivitamins (Multivitamin Tab) 1 tab DAILY PO 12/28/17 09:00 01/27/18 08:59 12/29/17 07:55 1 TAB Propranolol HCl (Inderal Tab) 20 mg DAILY PO 12/28/17 09:00 01/27/18 08:59 12/29/17 07:55 20 MG Ioversol (Optiray 320) 115 ml UD PRN IV 12/27/17 22:15 12/31/17 22:14 Pravastatin Sodium (Pravachol Tab) 10 mg DAILY@17 PO 12/29/17 17:00 01/28/18 16:59 Gadobutrol (Gadavist) 9 mmol UD PRN IV 12/28/17 14:30 01/01/18 14:29 Ibuprofen (Advil Tab) 400 mg QID PRN PO 12/28/17 16:15 01/27/18 16:14 12/29/17 07:55 400 MG Oxycodone HCl (Roxicodone Immediate Rel Tab) 5 mg Q4HWA PRN PO 12/28/17 16:15 01/11/18 16:14 12/29/17 09:31 5 MG Impression This is a 77-year-old male with a right homonymous hemianopsia and left occipital ischemic stroke with mild brain edema. No known stroke risk factors. Concern for slightly worsening right visual field deficits with no other associated neurological deficits. More than likely is normal fluctuation of stroke symptoms. Exam is fairly similar to previous exam with possibly some slight worsening of right visual deficits in the right upper quadrant compared to yesterday. Plan Agree with getting CT of the head to evaluate for hemorrhagic conversion or worsening brain edema. Continue aspirin 81 mg and low-dose statin daily for secondary stroke prevention For ongoing headaches can use NSAIDs as needed. If NSAIDs are not sufficient, can use limited narcotics, but would try to avoid using narcotics for more than a month. If patient continues to have constant headaches refractory to prn medications, can consider low-dose gabapentin. Recommend ophthalmology evaluation with visual field testing as an outpatient. Discussed no driving until then. Follow-up PT/OT therapies for discharge planning. Blood pressure recommendations while in hospital 175/95-150/80 (MAPS 90-110) Avoid hypotension and dehydration Stroke risk factor modifications and recommendations: Blood pressure recommendations for the first month post hospital discharge 150/ 90-130/80, and after that blood pressure recommendations 130/80-110/70 Total cholesterol goal 100- 200 and LDL goal less than 100 Hemoglobin A1c goal less than 7 Encourage cardiovascular exercise at least 3 times a week for 30 minutes. Follow-up in neurology clinic in 1 month for post stroke hospital follow-up. Recommend Holter monitor as an outpatient for further evaluation since stroke etiology is not clear. If there is any questions or concerns, feel free to call/page me.
--- NOTE | 2017-12-29 10:29 | DIAGNOSTIC IMAGING REPORT ---
HEAD WITHOUT CONTRAST (CT) CT DOSE: 614.27 mGy.cm HISTORY: Mental status change. Stroke. assess for evolving stroke TECHNIQUE: Multiaxial CT images of the head were performed without the use of intravenous contrast. A dose lowering technique was utilized adhering to the principles of ALARA. Comparison: CT 12/27/2017. MRI brain 12/28/2017. Findings: The paranasal sinuses and mastoid air cells are clear. Evidence for a visualized subacute infarct left occipital lobe corresponding to the MRI exam. No evidence for acute intracranial hemorrhage. Remainder the study is unchanged from the prior study. Ventricular system is midline. Impression: 1. Subacute infarct left occipital lobe corresponding to the MRI findings. 2. No acute intracranial hemorrhage. 3. The study is otherwise stable compared to the prior CT exam The above report was generated using voice recognition software. It may contain grammatical, syntax or spelling errors. Electronically signed by: Alexandro Lepe M.D. 12/29/2017 10:27 AM Dictated Date/Time: 12/29/2017 10:25 AM
[2017-12-29] MEDS ORDERED: RXC5 PO (12:24)
[2017-12-29] MEDS ORDERED: IBUP-1050 PO (12:24)
[2017-12-29] MEDS ORDERED: ASPI-320 PO (12:24)
[2017-12-29] MEDS ORDERED: PRVC10 PO (12:24)
--- NOTE | 2017-12-29 12:33 | Discharge Instructions ---
Discharge Instructions Date of Service December 29, 2017. Admission Reason for Admission: Right Homonymous Hemianopsia Discharge Discharge Diagnosis / Problem: L. occipital stroke Discharge Goals Goal(s): Decrease discomfort, Improve function, Increase independence, Improve disease control Activity Recommendations Activity Limitations: resume your previous activity Lifting Limitations: no more than 25 pounds, gradually increase as tolerated Exercise/Sports Limitations: none, gradually increase as tolerated May Resume Sexual Activity: when tolerated Shower/Bathe: no limitations Driving or Machine Use: DO NOT DRIVE until follow up with opthalmology . Instructions / Follow-Up Instructions / Follow-Up You were admitted to [facility] with R peripheral vision loss and diagnosed with Left occipital cerebral vascular accident (CVA - ie. stroke). During your stay here you were treated with supportive care, were evaluated by neurology and started on medication for prophylaxis of strokes in the future. Imaging studies which were completed include MRI of the brain on 12/27 showing stroke. You had a CT scan on 12/28 due to worsening symptoms however this imaging study showed the stroke as above, and no other concerning findings like worsening stroke or new bleed. Your symptoms will likely wax and wane for several weeks. Please note that stress or illness may exacerbate your symptoms. - You will need to have a cardiac event monitor x 2 weeks as an outpatient to rule out possible cardiac arrhythmia which may have been associated with stroke - DO NOT DRIVE until seen by ophthalmology as an outpatient - Follow up with neurology within 3-4 weeks as an outpatient or sooner if needed. Medications: - You have been started on pravastatin 10 mg daily - this is a new statin medication for stroke prevention as your cholesterol levels were good and neurology recommended this. - Continue baby aspirin daily - You may take ibuprofen and use oxycodone as needed for headache. - Continue taking your other medications as prescribed. Appointments: Follow up with PCP within 1 week. Follow up with neurology within 3-4 weeks, an appointment has been requested. Follow up with ophthalmology within 1-2 weeks, an appointment has been requested for you. Current Hospital Diet Patient's current hospital diet: Regular Diet Discharge Diet Recommended Diet: AHA Diet (Heart Healthy) Pending Studies Studies pending at discharge: no Laboratory Results Hemoglobin A1c Test 12/28/17 05:32 Range/Units Estimated Average Glucose 100 mg/dl Hemoglobin A1c 5.1 4.5-5.6 % Lipid Panel Test 12/28/17 05:32 Range/Units Triglycerides Level 110 0-150 mg/dl Cholesterol Level 135 0-200 mg/dl HDL Cholesterol 43 mg/dl Cholesterol/HDL Ratio 3.1 LDL Cholesterol, Calculated 70 mg/dl Medical Emergencies . Who to Call and When: Medical Emergencies: If at any time you feel your situation is an emergency, please call 911 immediately. . Non-Emergent Contact Non-Emergency issues call your: Primary Care Provider, Neurologist Call Non-Emergent contact if: you have a fever, temperature is above 100.5, your pain is not controlled, your pain is worsening, your pain is unusual for you, your pain is concerning you, you have any medication questions other concerns with your health. Call 911 or go directly to the Emergency Department if you experience any of the following: Chest pain, chest tightness, shortness of breath, abdominal pain , lightheadedness, dizziness, gastrointestinal bleeding, or have any other concerns regarding your health. . Past History Medical & Surgical History: (1) CVA (cerebral vascular accident) (2) Headache (3) Right homonymous hemianopsia . "Provider Documentation" section prepared by Janice Ramesh. . [place] Drug Monitoring Program Search Results: no issues identified
[2017-12-29] MEDS ORDERED: ACET-1047 PO (13:03)
--- NOTE | 2017-12-29 13:12 | Discharge Instructions ---
Discharge Instructions Date of Service December 29, 2017. Admission Reason for Admission: Right Homonymous Hemianopsia Discharge Discharge Diagnosis / Problem: L occipital CVA Discharge Goals Goal(s): Decrease discomfort, Improve function, Increase independence, Improve disease control Activity Recommendations Activity Limitations: resume your previous activity Lifting Limitations: no more than 25 pounds, gradually increase as tolerated Exercise/Sports Limitations: rest today, gradually increase as tolerated May Resume Sexual Activity: when tolerated Shower/Bathe: no limitations Driving or Machine Use: DO NOT DRIVE until seen by ophthalmology . Instructions / Follow-Up Instructions / Follow-Up You were admitted to [facility] with R peripheral vision loss and diagnosed with Left occipital cerebral vascular accident (CVA - ie. stroke). During your stay here you were treated with supportive care, were evaluated by neurology and started on medication for prophylaxis of strokes in the future. Imaging studies which were completed include MRI of the brain on 12/27 showing stroke. You had a CT scan on 12/28 due to worsening symptoms however this imaging study showed the stroke as above, and no other concerning findings like worsening stroke or new bleed. Your symptoms will likely wax and wane for several weeks. Please note that stress or illness may exacerbate your symptoms. - You will need to have a cardiac event monitor x 2 weeks as an outpatient to rule out possible cardiac arrhythmia which may have been associated with stroke - DO NOT DRIVE until seen by ophthalmology as an outpatient - Follow up with neurology within 3-4 weeks as an outpatient or sooner if needed. Medications: - You have been started on pravastatin 10 mg daily - this is a new statin medication for stroke prevention as your cholesterol levels were good and neurology recommended this. - Continue baby aspirin daily - You may take ibuprofen and use oxycodone as needed for headache up to every 4 hours as needed for pain. You developed nausea from oxycodone, so please take a zofran tablet with this medication to prevent nausea. - Continue taking your other medications as prescribed. Appointments: Follow up with PCP within 1 week. Follow up with neurology within 3-4 weeks, an appointment has been requested. Follow up with ophthalmology within 1-2 weeks, an appointment has been requested for you. Risk Factors for Stroke: You can reduce your chances of stroke by working with your medical provider to adopt a healthy lifestyle. Some specific ways to lower your chance of stroke are: * If you are a smoker, now is the time to stop smoking cigarettes * If you are diabetic, improve the control of your blood sugars * Avoid excessive amounts of alcohol * Control high blood pressure * Lose weight if you are overweight * Be sure to lead an active lifestyle * Eat a healthy diet low in salt, cholesterol and fat You should know about other risk factors for stroke that you are unable to control. These include: * Age 55 years or older * Male gender * Certain racial groups: , or / * Family History of Stroke, Mini stroke or Heart Attack * Sickle Cell Disease Follow Up: It is important for you to keep your follow up appointments with your medical provider. Current Hospital Diet Patient's current hospital diet: Regular Diet Discharge Diet Recommended Diet: AHA Diet (Heart Healthy) Pending Studies Studies pending at discharge: no Laboratory Results Hemoglobin A1c Test 12/28/17 05:32 Range/Units Estimated Average Glucose 100 mg/dl Hemoglobin A1c 5.1 4.5-5.6 % Lipid Panel Test 12/28/17 05:32 Range/Units Triglycerides Level 110 0-150 mg/dl Cholesterol Level 135 0-200 mg/dl HDL Cholesterol 43 mg/dl Cholesterol/HDL Ratio 3.1 LDL Cholesterol, Calculated 70 mg/dl Medical Emergencies . Who to Call and When: Medical Emergencies: Call 911 immediately if you experience any of the following warning signs and symptoms of Stroke: * Sudden numbness or weakness of the face, arm or leg, especially on one side of the body * Sudden confusion, trouble speaking or understanding * Sudden trouble seeing in one or both eyes * Sudden trouble walking, dizziness, loss of balance or coordination * Sudden severe headache with no cause Do not delay calling 911 if you experience any warning signs or symptoms of a stroke. Delay in seeking medical attention may affect what treatments can be given to you. . Non-Emergent Contact Non-Emergency issues call your: Primary Care Provider, Neurologist Call Non-Emergent contact if: you have a fever, temperature is above 100.5, your pain is not controlled, your pain is worsening, your pain is unusual for you, your pain is concerning you, you have any medication questions other concerns with your health. Call 911 or go directly to the Emergency Department if you experience any of the following: Chest pain, chest tightness, shortness of breath, abdominal pain , lightheadedness, dizziness, gastrointestinal bleeding, or have any other concerns regarding your health. . . "Provider Documentation" section prepared by Janice Ramesh. . Stroke Core Measures Reason no t-PA for Stroke: Contraindicated Reason no antithrom by day 2: Treatment provided - N/A Reason no antithrom at D/C: Treatment provided - N/A Reason no statin at D/C: Treatment provided - N/A Reason no anticoag w/a fib: Treatment not indicated [place] Drug Monitoring Program Search Results: no issues identified
[2017-12-29] MEDS ORDERED: ONDANSETRON INJ 2 MG/ML 2 ML VIAL IV PRN (13:15)
--- NOTE | 2017-12-29 14:04 | Discharge Summary ---
Discharge Summary Date of Service December 29, 2017. Discharge Summary Admission Date: December 27, 2017 at 19:25 Discharge Date: December 29, 2017 Discharge Disposition: Home Principal Diagnosis: Left occipital acute ischemic CVA Problems/Secondary Diagnoses: [id number] Macular degeneration Right homonomous hemianopsia Essential Tremor Mild mitral valve regurgitation BPH Chronic diastolic CHF Procedures: HEAD WITHOUT CONTRAST (CT) 12/27/17 Findings: The paranasal sinuses and mastoid air cells are clear. The calvarium and skull base are intact. The ventricles and sulci are within normal limits. There is no mass, hematoma, midline shift, or acute infarct. Impression: No acute intracranial abnormality. NECK and HEAD ANGIO WITH CONTRAST 12/27/17 FINDINGS: The aortic arch and proximal great vessels are widely patent. There is no significant stenosis, occlusion, or dissection identified within the bilateral common carotid, internal carotid, or vertebral arteries. Minimal/mild scattered plaque formation of the carotid bifurcations. No major stenotic process. No evidence for aneurysm or dissection IMPRESSION: No significant stenosis, occlusion, or dissection identified within the carotid or vertebral arteries. Mild scattered atherosclerotic plaque formation. BRAIN COMBO MRI 12/28/17 FINDINGS: Business Support Liaison localizer images demonstrate no gross abnormality. Midline structures including the corpus callosum, brainstem, optic chiasm, pituitary and pineal glands appear unremarkable on the sagittal T1 series. There is no cerebellar tonsillar herniation. Degenerative changes of the imaged cervical spine are noted. Diffusion-weighted images are motion degraded. Focal area of restricted diffusion involving the left occipital lobe measures up to 1.7 x 1.3 cm with decreased signal on ADC map. There is increased T2/FLAIR signal within this distribution as noted on image 24 series 6 and image 12 series 5 without associated enhancement. No abnormal intra-axial or extra-axial enhancement identified. There is mild to moderate brain atrophy. No acute intracranial hemorrhage, midline shift or abnormal extra-axial collections. Moderate degree of T2/FLAIR signal abnormalities are again noted within the deep, periventricular and subcortical white matter of the cerebral hemispheres bilaterally suggesting chronic microvascular ischemic changes. These have progressed from 07/01/2012 study. Major flow voids at the level of the skull base appear patent. Orbits are symmetric and within normal limits. Trace right mastoid effusion. Mild polypoid mucosal thickening of the left sphenoid sinus with mild right maxillary and bilateral ethmoid sinus disease. Soft tissues and skull are unremarkable. IMPRESSION: 1. Acute infarction of the left occipital lobe measures up to 1.7 cm with moderate associated cytotoxic edema. No hemorrhage, midline shift or abnormal enhancement. 2. Mild to moderate atrophy with chronic microvascular ischemic changes. 3. Mild paranasal sinus disease. HEAD WITHOUT CONTRAST (CT) 12/29/17 Findings: The paranasal sinuses and mastoid air cells are clear. Evidence for a visualized subacute infarct left occipital lobe corresponding to the MRI exam. No evidence for acute intracranial hemorrhage. Remainder the study is unchanged from the prior study. Ventricular system is midline. Impression: 1. Subacute infarct left occipital lobe corresponding to the MRI findings. 2. No acute intracranial hemorrhage. 3. The study is otherwise stable compared to the prior CT exam ECHO: Normal LVEF, Mild MR, Grade 1 diastolic dysfunction, no interatrial shunt Consultations: Neurology Medication Reconciliation New Medications: Ondasetron Odt (Zofran Odt) 4 Mg Tab 4 MG SL Q6H for Nausea for 7 Days, #28 TAB Acetaminophen (Mapap) 325 Mg Tab 650 MG PO Q4H PRN for Pain or Fever for 30 Days OTC Aspirin (Aspirin EC Low Dose) 81 Mg Ectab 81 MG PO QAM for 30 Days, #30 TABS Ibuprofen (Advil) 200 Mg Tab 400 MG PO QID PRN for Headache for 30 Days, #240 TAB Oxycodone HCl (Oxycodone HCl) 5 Mg Tab 5 MG PO Q4HWA PRN for basurto for 3 Days, #18 TAB Pravastatin Sod (Pravastatin Sodium) 10 Mg Tab 10 MG PO DAILY@17 for 30 Days, #30 TAB Continued Medications: Ascorbic Acid (Vitamin C) 1,000 Mg Tab MG PO DAILY Calcium Carbonate-Cholecalcife (Caltrate 600+D) 1 Tab Tab 1 TAB PO DAILY Finasteride (Finasteride) 5 Mg Tab 5 MG PO DAILY Lutein (Lutein) 20 Mg Cap MG DAILY Multivitamin (Multivitamin) Tab 1 TAB PO DAILY, TAB Propranolol (Inderal) 20 Mg Tab 20 MG PO DAILY, TAB Discharge Exam Subjective Pt evaluation today including: conversation w/ patient, physical exam, chart review, lab review, review of studies, conversation w/ consultant internship Pain: Headache PO Intake: Good Voiding: no voiding problems The patient was seen and examined this morning. Pt reports that he slept well overnight. This morning has complaints of worsening peripheral vision out of the right eye where he is only able to see what is directly in front of him. He also notes slight lightheadedness this morning, no dizziness or room spinning sensation. He denies any weakness, difficulty eating or swallowing with breakfast. He notes his headache is slightly improved overall but still present, and rates it a 4/10 compared to yesterday when it was a 9. Constitutional: No fever, No chills, No sweats, No fatigue Eyes: + see HPI, + worsening of vision, No eye pain, No redness, No diplopia ENT: No hearing loss, No unusual epistaxis, No nasal symptoms, No sore throat, No trouble swallowing Respiratory: No cough, No shortness of breath Cardiovascular: No chest pain, No palpitations Abdomen: No pain, No nausea, No vomiting, No diarrhea, No constipation Male : No dysuria, No incontinence Neurologic: No weakness, No numbness/tingling, No balance problems Heme: No abnormal bleeding/bruising Endo: No fatigue Skin: No rash, No itch Physical Exam General Appearance: WD/WN, no apparent distress Eyes: PERRL, EOMI, + pertinent finding (+ Loss of R sided peripheral visual burns. 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 Bond is a 77 y/o male with PMHx of Essential Tremor, Heart Murmur, and BPH who presents with R peripheral vision loss and headache that started this AM Right homonomous hemianopsia and Headache Acute Left occipital ischemic CVA - MRI completed: 1. Acute infarction of the left occipital lobe measures up to 1.7 cm with moderate associated cytotoxic edema. No hemorrhage, midline shift or abnormal enhancement. 2. Mild to moderate atrophy with chronic microvascular ischemic changes. 3. Mild paranasal sinus disease. - Symptoms started at 0630 on 12/27: peripheral vision had improved yesterday however this morning are now worsened again where he has absent peripheral vision out of the R eye. CN were tested and otherwise negative. No weakness. Neurology evaluated at bedside. -Repeat CT head noncontrast today negative for hemorrhagic conversion or worsening edema despite worsening visual symptoms Per neuro sx are likely to wax and wane for several weeks and illness and stress may possibly exacerbate sx. Ok per neuro for discharge to home today. - CTA Head/Neck was also negative for stenosis occlusion, and vessels are widely patent - 2D echo was with normal EF without WMA. - no shunt - started on ASA 81 mg daily - Consult Neurology - notified of sx changes this morning and discussed w/ Dr. Louie. - started on pravastatin due to already low cholesterol to avoid increased risk of intracranial hemorrhage post-CVA - Allow permissive HTN at this point per neuro recs - Opthalmology appt f/u at dc - NO driving until seen-discussed with patient. - Event monitor x 2 weeks arranged to check for occult Atrial fibrillation - will need follow up within 4 weeks as an outpatient. - Analgesia for BASURTO with ibuprofen, acetaminophen, or low dose oxycodone. Essential Tremor:stable - Propranolol 20 mg daily BPH:stable - Proscar 5 mg daily DVT Prophylaxis: Lovenox Code Status: FULL RESUSCITATION Disposition: - PT/OT evaluations, From home, lives with - dc to home today Total Time Spent: Greater than 30 minutes This includes examination of the patient, discharge planning, medication reconciliation, and communication with other providers. Discharge Instructions Please refer to the electronic Patient Visit Report (Discharge Instructions) for additional information. Follow-Up Follow up with PCP within 1 week. Follow up with neurology within 3-4 weeks, an appointment has been requested. Follow up with ophthalmology within 1-2 weeks, an appointment has been requested for you. Additional Copies To Wayne Barrera M.D. Reviewed: Pt Seen/Exam by Me History Physician Materials And Processes Manager supervision Note: I interviewed and examined the patient. Discussed with ERASTO Ramesh and agree with findings and plan as documented in the note. Any exceptions or clarifications are listed here: Worsening right sided visual loss this AM, repeat STTA head TC negative for hemorrhagic conversion or worsening edema around the CVA. No new focal neuro symptoms Vitals reviewed, telemetry remains with normal sinus rhythm and some sinus bradycardia overnight Gen: AAOx3, NAD HEENT: anicteric sclerae, EOMI CV: RRR no mgr nl S1S2 Pulm: CTAB no wcr Ext: no edema, no calf tenderness Skin: no rashes, warm/dry Neuro: full strength throughout Patient is a 77-year-old male with history of essential tremor, BPH, mild mitral valve regurgitation, here with right-sided homonymous hemianopsia and now with confirmed acute ischemic CVA of the left occipital lobe. Most likely microvascular event given other findings of ischemic microvascular disease on MRI. - recommend cardiac event monitor after discharge to look for occult atrial fibrillation -Continue aspirin and pravastatin which are new to him for secondary prevention -Already has follow-up scheduled with neurology for his tremor this coming and he will keep that appointment -Follow-up with PCP within 1 week after discharge -Continue analgesics as needed for headache -Continue permissive hypertension, doing fine even with being on propranolol -Needs follow-up with ophthalmology after discharge and we can help him arrange that prior to discharge-needs formal visual field testing -Informed him he is not to drive until after seen by ophthalmology Documented By: Laine Meraz
[2017-12-29] MEDS ORDERED: ONDA4TAB10 SL (15:48)
[2017-12-29] MEDS ORDERED: PRAVASTATIN SOD 10 MG TAB PO SCH (17:00)
== END 2017-12-29 17:03 | disposition home or self-care (01) | DRG 103 ==
LOC: C.EDB 16:20 → C.MED 19:25 → ENRESERV 19:44
PROVIDERS: ADMIT Internal Medicine; ATTEND Family Medicine
DX: R51 Headache (principal); H54.7 Unspecified visual loss; Z88.2 Allergy status to sulfonamides; N40.0 Benign prostatic hyperplasia without lower urinary tract symptoms; R01.1 Cardiac murmur, unspecified; G25.0 Essential tremor; Z82.49 Family history of ischemic heart disease and other diseases of the circulatory system; Z82.0 Family history of epilepsy and other diseases of the nervous system

== ENCOUNTER 2018-04-02 09:16 | Observation (INO) | payer BC, OTHER ==
[~2018-04-02] VITALS: Ht 175.3 cm; Wt 87.1 kg
[~2018-04-02 09:16] MED LIST changes: +ACET-1047 PO; +ASPI-320 PO; +CALC-354 PO; +IBUP-1050 PO; -LUTE20CA; +LUTE20CA PO; -PRIM50TA29 PO; +PROP20TA67 PO; +PRS5 PO; +PRVC10 PO; +RXC5 PO
--- NOTE | 2018-04-02 09:40 | EMERGENCY ROOM VISIT NOTE ---
History Report prepared by Jacqueline: Tahira Moraes Under the Supervision of: Dr. Ryder Karimi M.D. First contact with patient: 09:34 Chief Complaint: NEURO SYMPTOMS Stated Complaint: NO BALANCE,PT HAD MINI STROKE ON 12/27/17 Nursing Triage Summary: pt reports since waking up today between [id number] he has felt "off balance." pt reports last night when he went to bed he felt fine. pt denies feeling dizzy. pt denies any weakness numbness or tingling. pt reports that pt has had no slurred speech or confusion. pt has hx of tia in january and since that time right peripheral vision has been affected. pt denies any new visual problems. History of Present Illness The patient is a 77 year old male who presents to the Emergency Room with complaints of sudden neurological symptoms beginning at 0600 this morning. The patient states that he woke up at 0600 and that he was having trouble with his balance. He states that when he walks that he "is not sure where his next step is going to be." He reports that he went to bed a little past 0000 last night. The patient states that he had a TIA on December 27 and was here and placed on Baby Aspirin. Per , the patient lost his right peripheral vision from the TIA. His states that the patient did not take his morning medications yet. The patient denies a history of diabetes. Source of History: patient, spouse/significant other Onset: 0600 this morning Position: other (generalized) Quality: other (neurological symptoms ) Timing: other (sudden) Associated Symptoms: + weakness (trouble with balance) Review of Systems See HPI for pertinent positives and negatives. A total of ten systems were reviewed and were otherwise negative. Past Medical & Surgical Medical Problems: (1) Headache (2) History of TIA (transient ischemic attack) (3) Macular degeneration Family History Alzheimers Disease Heart Disease Prostate Cancer Social History Smoking Status: Never Smoker Drug Use: none Marital Status: Housing Status: lives with family Occupation Status: retired Current/Historical Medications Scheduled Ascorbic Acid (Vitamin C), 1,000 MG PO DAILY Aspirin (Aspirin EC Low Dose), 81 MG PO QAM Calcium Carbonate-Cholecalcife (Caltrate 600+D), 1 TAB PO DAILY Finasteride (Finasteride), 5 MG PO DAILY Lutein (Lutein), 20 MG PO DAILY Multivitamin (Multivitamin), 1 TAB PO DAILY Pravastatin Sod (Pravastatin Sodium), 10 MG PO DAILY@17 Propranolol (Inderal), 80 MG PO DAILY Scheduled PRN Acetaminophen (Mapap), 650 MG PO Q4H PRN for Pain or Fever Ibuprofen (Advil), 400 MG PO QID PRN for Headache Oxycodone HCl (Oxycodone HCl), 5 MG PO Q4HWA PRN for liriano Allergies Coded Allergies: Sulfa Antibiotics (Verified Allergy, Unknown, HIVES, 04/02/18) Physical Exam Vital Signs Date Time Temp Pulse Resp B/P (MAP) Pulse Ox O2 Delivery O2 Flow Rate FiO2 04/02/18 11:35 57 16 124/68 97 Room Air 04/02/18 11:06 95 Room Air 04/02/18 09:57 59 18 129/77 95 Room Air 04/02/18 09:34 58 04/02/18 09:31 95 04/02/18 09:17 36.7 61 18 116/70 94 Room Air Physical Exam Physical Exam GENERAL: He is oriented to person, place, and time. He appears well-developed and well-nourished. He does not appear distressed. HENT: Exam performed. Head: Normocephalic and atraumatic. Right Ear: External ear normal. No mastoid tenderness. Left Ear: External ear normal. No mastoid tenderness. Mouth/Throat: The oropharynx is clear and moist. No trismus in the jaw. No dental abscesses or uvula swelling. No oropharyngeal exudate or tonsillar abscesses. EYES: Conjunctivae and EOM are normal. Pupils are equal, round, and reactive to light. Right eye exhibits no discharge. Left eye exhibits no discharge. No scleral icterus. Partial right-sided hemianopsia baseline per patient. NECK: Normal range of motion. Neck supple. No JVD present. No spinous process tenderness present. No carotid bruit present. No rigidity. No tracheal deviation and normal range of motion present. No Brudzinski's sign and no Kernig 's sign noted. CV: Normal rate, regular rhythm, normal heart sounds and intact distal pulses. There is no peripheral edema. Palpable radial pulses bue. PULM/CHEST: Effort normal and breath sounds normal. No respiratory distress. No stridor. He has no wheezes. He has no rales. Chest Wall: He exhibits no tenderness. ABD: The abdomen is soft. Bowel sounds are normal. He has no distension. No mass is present. There is no tenderness. There is no rebound, no guarding, no James's sign and no tenderness at McBurney's point. Rovsig negative. MUSC/SKEL: Normal range of motion. There is no peripheral edema, tenderness or deformity. LYMPH: No cervical adenopathy. NEURO: He is alert and oriented to person, place, and time. He has normal strength. No cranial nerve deficit or sensory deficit.GCS eye subscore is 4. GCS verbal subscore is 5. GCS motor subscore is 6. Cerebellar tests wnl. NIHHS 1 for partial hemianopsia, baseline per patient. SKIN: Skin is warm and dry. He is not diaphoretic. PSYCH: He has a normal mood and affect. Behavior is normal. Judgment and thought content normal. Medical Decision & Procedures ER Provider Diagnostic Interpretation: Radiology results as stated below per my review and radiologist interpretation: CT SCAN OF THE BRAIN WITHOUT IV CONTRAST CLINICAL HISTORY: Dizziness. COMPARISON STUDY: CT of the brain dated 12/29/2017. TECHNIQUE: Unenhanced axial CT scan of the brain is performed from the vertex to the skull base. A dose lowering technique was utilized adhering to the principles of ALARA. CT DOSE: 537.48 mGy.cm FINDINGS: Brain parenchyma: There are age-related involutional changes noting mild subcortical and periventricular microangiopathic change. There is no hemorrhage, mass effect, or evidence of acute territorial ischemia by CT criteria. Juarez-white matter is preserved. No extra-axial fluid collection is seen. Ventricles, sulci, cisterns: Prominent secondary to involutional change. Intracranial vasculature: There is atherosclerotic calcification of the cavernous carotid and vertebral arteries. Calvarium: Unremarkable. Sinuses and mastoids: The visualized paranasal sinuses are clear. There are trace mastoid effusions. Orbits: The bony orbits are grossly intact. IMPRESSION: There is no hemorrhage, mass effect, or evidence of acute territorial ischemia by CT criteria. Electronically signed by: Popeye Garza M.D. 04/02/2018 10:10 AM Dictated Date/Time: 04/02/2018 10:08 AM TWO VIEW CHEST CLINICAL HISTORY: Transient ischemic attack. FINDINGS: PA and lateral chest radiographs are obtained. No prior studies are available for comparison at the time of dictation. The cardiomediastinal silhouette is unremarkable. The lungs and pleural spaces are clear. There is no pneumothorax. The skeletal structures are osteopenic. Degenerative change is noted in the thoracic spine. IMPRESSION: No active disease in the chest. Electronically signed by: Popeye Garza M.D. 04/02/2018 10:15 AM Dictated Date/Time: 04/02/2018 10:14 AM Laboratory Results 04/02/18 09:25 Red Blood Count 4.85, Mean Corpuscular Volume 90.5, Mean Corpuscular Hemoglobin 30.5, Mean Corpuscular Hemoglobin Concent 33.7, Mean Platelet Volume 10.4, Neutrophils (%) (Auto) 64.2, Lymphocytes (%) (Auto) 23.6, Monocytes (%) (Auto) 6.8, Eosinophils (%) (Auto) 4.3, Basophils (%) (Auto) 0.9, Neutrophils # (Auto) 3.75, Lymphocytes # (Auto) 1.38, Monocytes # (Auto) 0.40, Eosinophils # (Auto) 0.25, Basophils # (Auto) 0.05 04/02/18 09:25 Test 04/02/18 09:25 White Blood Count 5.84 K/uL (4.8-10.8) Red Blood Count 4.85 M/uL (4.7-6.1) Hemoglobin 14.8 g/dL (14.0-18.0) Hematocrit 43.9 % (42-52) Mean Corpuscular Volume 90.5 fL (80-100) Mean Corpuscular Hemoglobin 30.5 pg (25-34) Mean Corpuscular Hemoglobin Concent 33.7 g/dl (32-36) Platelet Count 180 K/uL (130-400) Mean Platelet Volume 10.4 fL (7.4-10.4) Neutrophils (%) (Auto) 64.2 % Lymphocytes (%) (Auto) 23.6 % Monocytes (%) (Auto) 6.8 % Eosinophils (%) (Auto) 4.3 % Basophils (%) (Auto) 0.9 % Neutrophils # (Auto) 3.75 K/uL (1.4-6.5) Lymphocytes # (Auto) 1.38 K/uL (1.2-3.4) Monocytes # (Auto) 0.40 K/uL (0.11-0.59) Eosinophils # (Auto) 0.25 K/uL (0-0.5) Basophils # (Auto) 0.05 K/uL (0-0.2) RDW Standard Deviation 41.2 fL (36.4-46.3) RDW Coefficient of Variation 12.4 % (11.5-14.5) Immature Granulocyte % (Auto) 0.2 % Immature Granulocyte # (Auto) 0.01 K/uL (0.00-0.02) Prothrombin Time 10.6 SECONDS (9.0-12.0) Prothromb Time International Ratio 1.0 (0.9-1.1) Activated Partial Thromboplast Time 25.9 SECONDS (21.0-31.0) Partial Thromboplastin Ratio 1.0 Anion Gap 5.0 mmol/L (3-11) Est Creatinine Clear Calc Drug Dose 63.1 ml/min Estimated GFR () 76.3 Estimated GFR (Non- 65.9 BUN/Creatinine Ratio 12.6 (10-20) Estimated Average Glucose 120 mg/dl Hemoglobin A1c 5.8 % (4.5-5.6) Calcium Level 8.9 mg/dl (8.5-10.1) Troponin I < 0.015 ng/ml (0-0.045) Laboratory results reviewed by me ECG Per My Interpretation Indication: other (neurological symptoms) Rate (beats per minute): 61 Rhythm: sinus rhythm Findings: other ([place], QRS, QTC within normal limits, no ST elevation or depression) ED Course 0935: The patient was evaluated in room B10. A complete history and physical exam was performed. 1101: Vital signs stable. CT and labs within normal limits. Given the patient' s history of recent TIA and his symptoms will be admitted to the hospital for TIA. I discussed the test results and treatment plan with him. The patient will be evaluated for further management by Dr. Hodan Trejo. Medical Decision Vital signs stable. CT and labs within normal limits. Given the patient's history of recent TIA and his symptoms will be admitted to the hospital for TIA. I discussed the test results and treatment plan with him. The patient will be evaluated for further management by Dr. Hodan Trejo. Medication Reconcilliation Current Medication List: was personally reviewed by me Blood Pressure Screening Patient's blood pressure: Normal blood pressure Consults Time Called: 1038 Consulting Physician: Dr. Pradip Trejo Returned Call: [phone] Discussed the patient's case. The patient will be evaluated for further treatment and disposition. Impression Primary Impression: TIA (transient ischemic attack) Scribe Attestation The scribe's documentation has been prepared under my direction and personally reviewed by me in its entirety. I confirm that the note above accurately reflects all work, treatment, procedures, and medical decision making performed by me. The chart was completed utilizing [employer] Speech voice recognition software. Grammatical errors, random word insertions, pronoun errors, and incomplete sentences are an occasional consequence of this system due to software limitations, ambient noise, and hardware issues. Any formal questions or concerns about the content, text, or information contained within the body of this dictation should be directly addressed to the physician for clarification. Departure Information Dispostion Being Evaluated By Hospitalist Referrals Wayne Barrera M.D. (PCP) Patient Instructions My [facility]
[2018-04-02 09:47] LABS: BASO % 0.9 %; BASO ABS # 0.05 K/uL (0-0.2); EOS % 4.3 %; EOS ABS # 0.25 K/uL (0-0.5); HEMATOCRIT 43.9 % (42-52); HEMOGLOBIN 14.8 g/dL (14.0-18.0); IG# 0.01 K/uL (0.00-0.02); LYMPH % 23.6 %; LYMPH ABS # 1.38 K/uL (1.2-3.4); MEAN CELL VOLUME 90.5 fL (80-100); MEAN CORPUSCULAR HEMOGLOBIN 30.5 pg (25-34); MEAN CORPUSCULAR HGB CONC 33.7 g/dl (32-36); MEAN PLATELET VOLUME 10.4 fL (7.4-10.4); MONO % 6.8 %; NEUT % 64.2 %; NEUT ABS # 3.75 K/uL (1.4-6.5); PLATELET COUNT 180 K/uL (130-400); RED CELL DISTRIBUTION WIDTH CV 12.4 % (11.5-14.5); RED CELL DISTRIBUTION WIDTH SD 41.2 fL (36.4-46.3); WHITE BLOOD COUNT 5.84 K/uL (4.8-10.8)
[2018-04-02 09:56] LABS: PTT PATIENT 25.9 SECONDS (21.0-31.0)
[2018-04-02 10:06] LABS: BLOOD UREA NITROGEN 14 mg/dl (7-18); CALCIUM 8.9 mg/dl (8.5-10.1); CARBON DIOXIDE 29 mmol/L (21-32); CREATININE 1.08 mg/dl (0.60-1.40); GLUCOSE 98 mg/dl (70-99); POTASSIUM 4.2 mmol/L (3.5-5.1); SODIUM 141 mmol/L (136-145)
--- NOTE | 2018-04-02 10:12 | DIAGNOSTIC IMAGING REPORT ---
CT SCAN OF THE BRAIN WITHOUT IV CONTRAST CLINICAL HISTORY: Dizziness. COMPARISON STUDY: CT of the brain dated 12/29/2017. TECHNIQUE: Unenhanced axial CT scan of the brain is performed from the vertex to the skull base. A dose lowering technique was utilized adhering to the principles of ALARA. CT DOSE: 537.48 mGy.cm FINDINGS: Brain parenchyma: There are age-related involutional changes noting mild subcortical and periventricular microangiopathic change. There is no hemorrhage, mass effect, or evidence of acute territorial ischemia by CT criteria. Juarez-white matter is preserved. No extra-axial fluid collection is seen. Ventricles, sulci, cisterns: Prominent secondary to involutional change. Intracranial vasculature: There is atherosclerotic calcification of the cavernous carotid and vertebral arteries. Calvarium: Unremarkable. Sinuses and mastoids: The visualized paranasal sinuses are clear. There are trace mastoid effusions. Orbits: The bony orbits are grossly intact. IMPRESSION: There is no hemorrhage, mass effect, or evidence of acute territorial ischemia by CT criteria. Electronically signed by: Popeye Garza M.D. 04/02/2018 10:10 AM Dictated Date/Time: 04/02/2018 10:08 AM
--- NOTE | 2018-04-02 10:16 | DIAGNOSTIC IMAGING REPORT ---
TWO VIEW CHEST CLINICAL HISTORY: Transient ischemic attack. FINDINGS: PA and lateral chest radiographs are obtained. No prior studies are available for comparison at the time of dictation. The cardiomediastinal silhouette is unremarkable. The lungs and pleural spaces are clear. There is no pneumothorax. The skeletal structures are osteopenic. Degenerative change is noted in the thoracic spine. IMPRESSION: No active disease in the chest. Electronically signed by: Popeye Garza M.D. 04/02/2018 10:15 AM Dictated Date/Time: 04/02/2018 10:14 AM
[2018-04-02 11:06] VITALS: O2SAT 95; Ht 175.3 cm; Wt 87.1 kg
[2018-04-02] MEDS ORDERED: PROP80TA2 PO (11:15)
[2018-04-02] MEDS ORDERED: MAGNESIUM HYDROXIDE SUSP 30 ML UDC PO PRN (11:45)
[2018-04-02] MEDS ORDERED: ACETAMINOPHEN 325 MG TAB PO PRN ×2 (11:45)
[2018-04-02] MEDS ORDERED: PHARMACIST DISCHARGE MED REC CONSULT PRN (11:45)
[2018-04-02] MEDS ORDERED: OXYCODONE HCL IR 5 MG TAB (IMMEDIATE RELEASE) PO PRN (11:45)
[2018-04-02] MEDS ORDERED: ONDANSETRON INJ 2 MG/ML 2 ML VIAL IV PRN (11:45)
[2018-04-02 11:56] LABS: HEMOGLOBIN A1C 5.8 % (4.5-5.6)
[2018-04-02] MEDS ORDERED: LORAZEPAM 2 MG/ML 1 ML VIAL IV PRN (12:00)
--- NOTE | 2018-04-02 12:03 | History and Physical ---
History & Physical Date & Time of Service: Apr 02, 2018 at 11:41 Chief Complaint: No Balance,Pt Had Mini Stroke On 12/27/17 Primary Care Physician: Wayne Barrera M.D. History of Present Illness Source: patient, spouse 77 y/o M c/o unsteady gait. Pt states that he woke around 6am and was very unsteady to walk, which is not his usual. He did not fall, but could not keep his balance. He also noted that his head "felt empty". He was not dizzy or lightheaded. Denies being confused. He did not speak to anyone at that time, so is unsure if he had slurred speech. He has R side peripheral vision loss s/ p a CVA in December of this year and there was no difference in his vision from this new baseline. He went back to bed and fell back asleep. When he woke around 730 , he was still having these issues so he woke his . Yesterday was a regular day for him. He had no issues with ambulation or completing his usual activity. states that he had no confusion or slurred speech or facial droop after he woke her. Pt states that he has not been OOB to test his gait, but that the feeling of an empty head has resolved. He feels fine in the bed at this time. Pt denies fever, SOB, chest pain, abd pain, n/v/c/d, LE pain or swelling. He has been eating well. Pt was put on aspirin 81mg on d/c in December. He denies missing any doses, although he has not had his meds yet for today. Pt was started on a statin at that time as a preventive. No hx of hyperlipidemia. Past Medical/Surgical History Medical Problems: (1) CVA (cerebral vascular accident) (2) Headache (3) History of TIA (transient ischemic attack) (4) Macular degeneration (5) Right homonymous hemianopsia BPH dCHF Essential tremor Family History Family history was reviewed; no changes noted. Mother: [place] Neg for CVA Social History Smoking Status: Never Smoker Alcohol Use: none (no alcohol since CVA, hx of social use prior) Drug Use: none Marital Status: Occupational Status: retired Allergies Coded Allergies: Sulfa Antibiotics (Verified Allergy, Unknown, HIVES, 04/02/18) Home Medications Scheduled Ascorbic Acid (Vitamin C), 1,000 MG PO DAILY Aspirin (Aspirin EC Low Dose), 81 MG PO QAM Calcium Carbonate-Cholecalcife (Caltrate 600+D), 1 TAB PO DAILY Finasteride (Finasteride), 5 MG PO DAILY Lutein (Lutein), 20 MG PO DAILY Multivitamin (Multivitamin), 1 TAB PO DAILY Pravastatin Sod (Pravastatin Sodium), 10 MG PO DAILY@17 Propranolol (Inderal), 80 MG PO DAILY Scheduled PRN Acetaminophen (Mapap), 650 MG PO Q4H PRN for Pain or Fever Ibuprofen (Advil), 400 MG PO QID PRN for Headache Oxycodone HCl (Oxycodone HCl), 5 MG PO Q4HWA PRN for liriano Review of Systems Pertinent positives and negatives reviewed in HPI--all others negative Physical Exam Vital Signs Date Time Temp Pulse Resp B/P (MAP) Pulse Ox O2 Delivery O2 Flow Rate FiO2 04/02/18 11:35 57 16 124/68 97 Room Air 04/02/18 11:06 95 Room Air 04/02/18 09:57 59 18 129/77 95 Room Air 04/02/18 09:34 58 04/02/18 09:31 95 04/02/18 09:17 36.7 61 18 116/70 94 Room Air General Appearance: WD/WN, no apparent distress Head: normocephalic, atraumatic Eyes: normal inspection, PERRL, EOMI, sclerae normal Respiratory/Chest: normal breath sounds, no respiratory distress Cardiovascular: regular rate, rhythm, no edema Abdomen/GI: non tender, soft Extremities/Musculoskelatal: no calf tenderness, no pedal edema Neurologic/Psych: alert, oriented x 3, + pertinent finding (speech is clear and thoughts are organized) Skin: normal color, warm/dry Diagnostics Laboratory Results Results Past 24 Hours Test 04/02/18 09:25 Range/Units White Blood Count 5.84 4.8-10.8 K/uL Red Blood Count 4.85 4.7-6.1 M/uL Hemoglobin 14.8 14.0-18.0 g/dL Hematocrit 43.9 42-52 % Mean Corpuscular Volume 90.5 80-100 fL Mean Corpuscular Hemoglobin 30.5 25-34 pg Mean Corpuscular Hemoglobin Concent 33.7 32-36 g/dl Platelet Count 180 130-400 K/uL Mean Platelet Volume 10.4 7.4-10.4 fL Neutrophils (%) (Auto) 64.2 % Lymphocytes (%) (Auto) 23.6 % Monocytes (%) (Auto) 6.8 % Eosinophils (%) (Auto) 4.3 % Basophils (%) (Auto) 0.9 % Neutrophils # (Auto) 3.75 1.4-6.5 K/uL Lymphocytes # (Auto) 1.38 1.2-3.4 K/uL Monocytes # (Auto) 0.40 0.11-0.59 K/uL Eosinophils # (Auto) 0.25 0-0.5 K/uL Basophils # (Auto) 0.05 0-0.2 K/uL RDW Standard Deviation 41.2 36.4-46.3 fL RDW Coefficient of Variation 12.4 11.5-14.5 % Immature Granulocyte % (Auto) 0.2 % Immature Granulocyte # (Auto) 0.01 0.00-0.02 K/uL Prothrombin Time 10.6 9.0-12.0 SECONDS Prothromb Time International Ratio 1.0 0.9-1.1 Activated Partial Thromboplast Time 25.9 21.0-31.0 SECONDS Partial Thromboplastin Ratio 1.0 Sodium Level 141 136-145 mmol/L Potassium Level 4.2 3.5-5.1 mmol/L Chloride Level 107 98-107 mmol/L Carbon Dioxide Level 29 21-32 mmol/L Anion Gap 5.0 3-11 mmol/L Blood Urea Nitrogen 14 7-18 mg/dl Creatinine 1.08 0.60-1.40 mg/dl Est Creatinine Clear Calc Drug Dose 63.1 ml/min Estimated GFR () 76.3 Estimated GFR (Non- 65.9 BUN/Creatinine Ratio 12.6 10-20 Random Glucose 98 70-99 mg/dl Calcium Level 8.9 8.5-10.1 mg/dl Troponin I < 0.015 0-0.045 ng/ml Diagnostic Radiology CT head neg for acute CXR neg Normal EKG Impression Assessment and Plan 77 y/o M who was admitted for observation for TIA vs CVA TIA vs CVA: CT head neg MRI/MRA pending, requesting ativan for anxiety related to MRI Hx of aspirin 81mg use s/p CVA 12/2017, will likely need full aspirin vs aggrenox pending imaging results Follows with Dr. Ruff, c/s pending CBC, PRP WNL Trop neg, serials pending Continue prior statin dosing Recent ECHO, will not repeat unless imaging suggests new CVA PT/OT/speech evals R sided peripheral vision loss: at baseline BPH: continue home meds Other: Full code, has a living will that requests no prolonged life support, feeding tubes, etc. is present and agrees Reg diet SCDs for DVT proph Advanced Directives Existing Living Will: No Existing Power of Mingler Operator: Yes (MERCEDES ) Resuscitation Status VTE Prophylaxis Will order VTE Prophylaxis: Yes Additional Copies To Wayne Barrera M.D.
[2018-04-02] MEDS ORDERED: ASPIRIN 81 MG ECTAB PO ONE (12:07)
[2018-04-02] MEDS ORDERED: PROPRANOLOL HCL 80 MG TAB PO ONE (12:15)
[2018-04-02] MEDS ORDERED: FINASTERIDE 5 MG TAB PO ONE (12:15)
--- NOTE | 2018-04-02 12:48 | DIAGNOSTIC IMAGING REPORT ---
MR ANGIOGRAM OF THE BRAIN CLINICAL HISTORY: Strokelike symptoms. COMPARISON STUDY: MRI of the brain performed concurrently on 04/02/2018. CT angiogram of the brain dated 12/27/2017.. TECHNIQUE: 3-D [id number] MR angiography of the intracranial circulation is performed. 3-D tumble views are created and assessed. IV contrast was not administered for this examination. FINDINGS: There is origin of the right posterior cerebral artery. The internal carotid arteries are widely patent bilaterally, as are the anterior and middle cerebral arteries. The vertebrobasilar system and posterior cerebral arteries are widely patent. The vertebral arteries are codominant. There is no aneurysm, high-grade stenosis, or focal vessel cutoff seen throughout the intracranial circulation. The brain parenchyma is normal as visualized. IMPRESSION: Unremarkable MR angiogram of the brain. No change from the 12/27/2017 examination. Electronically signed by: Popeye Garza M.D. 04/02/2018 12:47 PM Dictated Date/Time: 04/02/2018 12:44 PM
[2018-04-02] MEDS ORDERED: IV FLUIDS COMPLETED PRN (13:00)
--- NOTE | 2018-04-02 13:23 | DIAGNOSTIC IMAGING REPORT ---
MRI OF THE BRAIN COMBO CLINICAL HISTORY: Strokelike symptoms. COMPARISON STUDY: CT of the brain dated 04/02/2018. TECHNIQUE: MRI of the brain was performed utilizing various T1 and T2-weighted sequences in the axial, sagittal, and coronal planes. Contrast-enhanced sequences were acquired following the administration of 8.8 cc of Gadavist. FINDINGS: Brain parenchyma: There are age-related involutional changes noting mild subcortical and periventricular microangiopathic disease. There is a small chronic left occipital infarct. There is no hemorrhage or mass effect. There is no restricted diffusion to suggest acute ischemia. No enhancing mass lesion is identified on the postcontrast images. Juarez-white matter differentiation is preserved. No extra-axial fluid collection is seen. The cerebellar tonsils are normal in configuration. Ventricles, sulci, and cisterns: Prominent secondary to involutional change. Pituitary and sella: Unremarkable. Intracranial vasculature: Normal flow voids are maintained at the skull base. Orbits: The bony orbits are grossly intact. Orbital contents are normal in appearance. Sinuses and mastoids: Clear. Calvarium: Unremarkable. Cervical cord: Partially visualized cervical spinal cord is normal in morphology and signal intensity. IMPRESSION: No acute intracranial abnormality. Electronically signed by: Popeye Garza M.D. 04/02/2018 1:21 PM Dictated Date/Time: 04/02/2018 1:19 PM
[2018-04-02 14:03] VITALS: BP 150/84; PULSE 56; TEMP 36.4; O2SAT 96
--- NOTE | 2018-04-02 14:14 | DIAGNOSTIC IMAGING REPORT ---
MR ANGIOGRAM OF THE NECK COMBO CLINICAL HISTORY: Strokelike symptoms. COMPARISON STUDY: CT angiogram of the neck dated 12/27/2017. Carotid artery ultrasound dated 07/01/2012. TECHNIQUE: Axial 3-D [id number] MR angiography of the neck is performed. Subsequently, following the IV administration of 8.8 cc of Gadavist. Coronal MR angiogram of the neck was performed to corroborate the findings. 3-D reformats are created and assessed. All measurements were calculated based on NASCET criteria. FINDINGS: Visualized portions of the thoracic aorta are normal in caliber. The aortic arch demonstrates standard 3-vessel anatomy. The subclavian arteries are widely patent bilaterally. The right common carotid artery is widely patent, as are the right internal and external carotid arteries. The left common carotid artery is widely patent, as are the left internal and external carotid arteries. There is tortuosity of the distal left internal carotid artery. The vertebral arteries are widely patent. The vertebral arteries are codominant. The visualized intracranial vessels at the skull base appear patent. IMPRESSION: Unremarkable MR angiogram of the neck. No significant change from the 12/27/2017 examination. Electronically signed by: Popeye Garza M.D. 04/02/2018 2:12 PM Dictated Date/Time: 04/02/2018 2:09 PM
[2018-04-02] MEDS ORDERED: IBUPROFEN 200 MG TAB PO PRN (14:30)
[2018-04-02 15:21] VITALS: BP 99/61; PULSE 51; TEMP 36.2; O2SAT 96
[2018-04-02] MEDS ORDERED: PRAVASTATIN SOD 10 MG TAB PO SCH ×2 (17:00→23:00)
[2018-04-02] MEDS ORDERED: NURSING VERBAL MED ORDER ONE (18:00)
[2018-04-02 19:30] VITALS: BP 113/69; PULSE 57; TEMP 36.2; O2SAT 94
[2018-04-02 23:24] VITALS: BP 144/77; PULSE 56; TEMP 36.5; O2SAT 95
[2018-04-03 02:14] LABS: CHOLESTEROL 108 mg/dl (0-200); LDL CHOLESTEROL CALCULATED 53 mg/dl
[2018-04-03 04:53] VITALS: BP 151/74; PULSE 55; TEMP 36.6; O2SAT 97
[2018-04-03 07:06] VITALS: BP 119/68; PULSE 52; TEMP 36.7; O2SAT 96
[2018-04-03] MEDS ORDERED: CALCIUM 600MG + VIT D 400 IU TAB PO SCH (09:00)
[2018-04-03] MEDS ORDERED: NON-FORMULARY MEDICATION (Lutein 20 MG) PO SCH (09:00)
[2018-04-03] MEDS ORDERED: ASPIRIN 81 MG ECTAB PO SCH (09:00)
[2018-04-03] MEDS ORDERED: MULTIVITAMIN TAB PO SCH (09:00)
[2018-04-03] MEDS ORDERED: FINASTERIDE 5 MG TAB PO SCH (09:00)
[2018-04-03] MEDS ORDERED: ASCORBIC ACID 500 MG TAB PO SCH (09:00)
[2018-04-03] MEDS ORDERED: PROPRANOLOL HCL 80 MG TAB PO SCH (09:00)
[2018-04-03 09:25] VITALS: BP 132/75; PULSE 78; O2SAT 96
--- NOTE | 2018-04-03 10:06 | Neurology Consultation ---
Neurology Consultation Date of Consultation: Apr 03, 2018. Attending Physician: Laine Meraz MD Primary Care Physician: Wayne Barrera M.D. Reason for Consultation: Feeling off balance History of Present Illness Source: patient, clinic records, hospital records The patient is a 77-year-old male who has been following with me for the past few years for benign essential tremor. His tremor has been responding fairly well to propranolol although he does have some mild bradycardia. 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 He has been taking aspirin and a statin and was last seen in Neurology Clinic for these issues on February 09, 2018. He has been taking propranolol LA 80 milligrams at bedtime and reports that he has been compliant with this medication. Past medical history also notable for macular degeneration and congestive heart failure. The patient presented to the emergency department yesterday complaining of feeling off balance that he noted at around 6 a.m. upon getting up from bed. He reports that he had difficulty taking steps with a tendency to list to the side. He believes his legs felt weak, right greater than left. He denies experiencing any associated weakness of the hands or arms, acute vision change, vertigo, or sensory loss. He denies any headache, ear pain, or tinnitus. A CT of the head completed in the emergency department yesterday was unremarkable. No evidence of acute process. Lab work was also generally unremarkable. CBC normal, basic metabolic panel normal. Glucose 98. Hemoglobin A1c 5.8. Lipid panel normal. Electrocardiogram revealed a normal sinus rhythm, 61 beats per minute. The patient has completed a follow-up MRI of the brain as well as MRA of the head and neck. No evidence of acute or subacute stroke. No evidence of hemodynamically significant stenosis or vascular lesion. I reviewed the images as well as a radiologist's interpretation of these tests. This morning, the patient reports that his feeling of leg weakness and difficulty walking has resolved. He continues to deny other associated symptoms. Past Medical/Surgical History Medical Problems: (1) CVA (cerebral vascular accident) Status: Acute (2) Right homonymous hemianopsia Status: Acute (3) TIA (transient ischemic attack) Status: Acute Family History Family history notable for Alzheimer's disease in the father and myocardial infarction in the mother Social History Smoking Status: Never smoker Alcohol Use: none (no alcohol since CVA, hx of social use prior) Drug Use: none Marital Status: Housing Status: lives with family Occupation Status: retired Allergies Coded Allergies: Sulfa Antibiotics (Verified Allergy, Unknown, HIVES, 04/02/18) Current Inpatient Medications Current Inpatient Medications Medications (Trade) Dose Ordered Sig/Katlyn Route Start Time Stop Time Status Last Admin Dose Admin Miscellaneous Information (Pharmacist Discharge Med Rec Consult) 1 ea UD PRN N/A 04/02/18 11:45 05/02/18 11:44 Acetaminophen (Tylenol Tab) 650 mg Q4H PRN PO 04/02/18 11:45 05/02/18 11:44 04/02/18 14:02 650 MG Magnesium Hydroxide (Milk Of Magnesia Susp) 30 ml Q12H PRN PO 04/02/18 11:45 05/02/18 11:44 Ondansetron HCl (Zofran Inj) 4 mg Q6H PRN IV 04/02/18 11:45 05/02/18 11:44 Aspirin (Ecotrin Tab) 81 mg QAM PO 04/03/18 09:00 05/03/18 08:59 04/03/18 07:58 81 MG Finasteride (Proscar Tab) 5 mg DAILY PO 04/03/18 09:00 05/03/18 08:59 04/03/18 07:59 5 MG Ibuprofen (Advil Tab) 400 mg QID PRN PO 04/02/18 14:30 05/02/18 14:29 Multivitamins (Multivitamin Tab) 1 tab DAILY PO 04/03/18 09:00 05/03/18 08:59 04/03/18 07:59 1 TAB Oxycodone HCl (Roxicodone Immediate Rel Tab) 5 mg Q4HWA PRN PO 04/02/18 11:45 04/16/18 11:44 Propranolol HCl (Inderal Tab) 80 mg DAILY PO 04/03/18 09:00 05/03/18 08:59 04/03/18 07:57 80 MG Ascorbic Acid (Vitamin C Tab) 1,000 mg DAILY PO 04/03/18 09:00 05/03/18 08:59 04/03/18 07:58 1,000 MG Calcium/Vitamin D (Caltrate Plus Tab) 1 tab DAILY PO 04/03/18 09:00 05/03/18 08:59 04/03/18 07:56 1 TAB Lorazepam (Ativan Inj) 0.5 mg ONE PRN IV 04/02/18 12:00 05/02/18 11:59 Miscellaneous (Iv Fluids Completed) 1 ea PRN PRN N/A 04/02/18 13:00 04/02/19 12:59 Pravastatin Sodium (Pravachol Tab) 10 mg DAILY@2300 PO 04/02/18 23:00 05/02/18 16:59 04/02/18 23:02 10 MG Review of Systems Constitutional: No fever chills Eyes: Persistent visual loss to the right hemifield following a left occipital lobe infarct this past December. He is also followed up with Ophthalmology for visual field testing. His field of view was determined to be acceptable for driving. ENT: No vertigo or hearing loss Cardiovascular: No chest pain or palpitations Respiratory: No cough or shortness of breath Musculoskeletal: No myalgia or arthralgia Neurological: As per history of present illness Hematologic: No abnormal bruising, bleeding, or swollen glands A full 10 point review of systems was obtained from this patient with pertinent positives and negatives described in history of present illness and otherwise listed above. All remaining systems were reviewed and are negative. Physical Exam Vital Signs (Past 24 Hrs): Date Time Temp Pulse Resp B/P (MAP) Pulse Ox O2 Delivery O2 Flow Rate FiO2 04/03/18 09:25 78 96 04/03/18 07:06 36.7 52 16 119/68 (85) 96 04/03/18 04:53 36.6 55 20 151/74 (99) 97 Room Air 04/02/18 23:24 36.5 56 20 144/77 (99) 95 Room Air 04/02/18 20:00 Room Air 04/02/18 19:30 36.2 57 18 113/69 (84) 94 Room Air 04/02/18 15:21 36.2 51 18 99/61 (74) 96 Room Air 04/02/18 14:03 36.4 56 18 150/84 (106) 96 04/02/18 14:00 Room Air 04/02/18 13:35 60 121/75 96 04/02/18 11:51 60 04/02/18 11:35 57 16 124/68 97 Room Air 04/02/18 11:06 95 Room Air 04/02/18 09:57 59 18 129/77 95 Room Air The patient is a well-developed, well-nourished elderly male. He is lying comfortably in bed. The patient is alert and fully oriented. Recent and remote memory intact. Attention and concentration normal. Patient exhibits a normal spontaneous speech pattern as well as an age-appropriate fund of knowledge. There is a right homonymous hemianopsia with confrontation testing. Visual acuity normal. Pupils equal round react to light and accommodation. Eye movements normal. There is no nystagmus. Facial sensation intact. There is no facial droop or weakness. Hearing intact bilaterally. Palate elevates to midline. Shoulder shrug intact. Tongue protrudes to midline. Sensation intact to all modalities in all 4 limbs. Deep tendon reflexes are intact and symmetrical. Plantar responses downgoing bilaterally. There is no dysdiadochokinesia or dysmetria of [id number] or heel to harmon bilaterally. Ophthalmoscopic examination reveals normal-appearing optic discs and posterior segments. No papilledema or hemorrhages. Carotid pulses normal bilaterally, no bruits to auscultation. Gait and station normal. Muscle strength and tone normal for all 4 limbs. No atrophy. Patient has a very mild bilateral postural and action tremor. Laboratory Results Past 24 Hours: Test 04/03/18 01:35 Troponin I < 0.015 ng/ml (0-0.045) Triglycerides Level 91 mg/dl (0-150) Cholesterol Level 108 mg/dl (0-200) HDL Cholesterol 37 mg/dl LDL Cholesterol, Calculated 53 mg/dl VLDL Cholesterol, Calculated 18 mg/dl Cholesterol/HDL Ratio 2.9 Impression Resolved episode of gait dysfunction with a perception of bilateral leg weakness , without other associated neurologic symptoms. Etiology undetermined. Vertebrobasilar TIA not excluded although no evidence of vertebrobasilar stenosis on angiography. It is possible the episode could have been provoked by his propranolol which he has been taking for benign essential tremor. He has had some bradycardia during this hospitalization. Inner ear pathology probably unlikely given lack of vertigo or other typical associated symptoms. Spinal stenosis also unlikely given lack of typical associated symptoms. Plan Patient has actually been taking propranolol LA 80 milligrams at bedtime as an outpatient. At this point, however, I would recommend changing to propranolol LA 60 milligrams at bedtime. I would also recommend switching from aspirin to Plavix 75 milligrams per day given the possibility of vertebrobasilar TIA. Have this patient follow up with me in clinic in the next 2-3 weeks. Please contact me if I may be of further assistance.
[2018-04-03 11:27] VITALS: BP 125/76; PULSE 54; TEMP 36.6; O2SAT 93
[2018-04-03] MEDS ORDERED: PLV75 PO (12:01)
[2018-04-03] MEDS ORDERED: INDSR/60 PO (12:01)
--- NOTE | 2018-04-03 12:10 | Discharge Instructions ---
Discharge Instructions Date of Service Apr 03, 2018. Admission Reason for Admission: TIA Discharge Discharge Diagnosis / Problem: Transient ischemic attack (TIA) Discharge Goals Goal(s): Improve disease control, Diagnostic testing, Therapeutic intervention Activity Recommendations Activity Limitations: as noted below Exercise/Sports Limitations: gradually increase as tolerated Shower/Bathe: no limitations Driving or Machine Use: resume 3 days after discharge . Instructions / Follow-Up Instructions / Follow-Up You were admitted due to acute onset of a loss of balance. All of the MRIs of the brain and blood vessels of the head and neck showed that you did not have a new stroke, but your old stroke from Dec, 2017 was still present (as a "scr" of sorts). All of your symptoms completely resolved. It is possible that you had a transient ischemic attack (TIA) that caused your symptoms. The neurologist recommended lowering the dose of your propranolol to 60 mg once daily in case low blood pressure or heart rate contributed to you having a TIA. It is also recommended that you stop taking aspirin and start taking Plavix instead for your blood thinner to prevent future strokes. It is also very important to not take ibuprofen unless absolutely necessary for occasional aches and pains as ibuprofen and all NSAIDs i.e. Aleve, naproxen, Motrin, Advil, ibuprofen, etc. Can all cause strokes and heart attacks. Dr. Ruff of neurology would like to see you in his office within 2-3 weeks. Please also follow-up with your family doctor within 1-2 weeks. Please call their offices to schedule these appointments. Risk Factors for Stroke: You can reduce your chances of stroke by working with your medical provider to adopt a healthy lifestyle. Some specific ways to lower your chance of stroke are: * If you are a smoker, now is the time to stop smoking cigarettes * If you are diabetic, improve the control of your blood sugars * Avoid excessive amounts of alcohol * Control high blood pressure * Lose weight if you are overweight * Be sure to lead an active lifestyle * Eat a healthy diet low in salt, cholesterol and fat You should know about other risk factors for stroke that you are unable to control. These include: * Age 55 years or older * Male gender * Certain racial groups: , or / * Family History of Stroke, Mini stroke or Heart Attack * Sickle Cell Disease Follow Up: It is important for you to keep your follow up appointments with your medical provider. Current Hospital Diet Patient's current hospital diet: Regular Diet Discharge Diet Recommended Diet: Regular Diet Procedures Procedures Performed: MRI brain MRA head and neck CT head Chest x-ray Pending Studies Studies pending at discharge: no Laboratory Results Hemoglobin A1c Test 04/02/18 09:25 Range/Units Estimated Average Glucose 120 mg/dl Hemoglobin A1c 5.8 H 4.5-5.6 % Lipid Panel Test 04/03/18 01:35 Range/Units Triglycerides Level 91 0-150 mg/dl Cholesterol Level 108 0-200 mg/dl HDL Cholesterol 37 mg/dl Cholesterol/HDL Ratio 2.9 LDL Cholesterol, Calculated 53 mg/dl Medical Emergencies . Who to Call and When: Medical Emergencies: Call 911 immediately if you experience any of the following warning signs and symptoms of Stroke: * Sudden numbness or weakness of the face, arm or leg, especially on one side of the body * Sudden confusion, trouble speaking or understanding * Sudden trouble seeing in one or both eyes * Sudden trouble walking, dizziness, loss of balance or coordination * Sudden severe headache with no cause Do not delay calling 911 if you experience any warning signs or symptoms of a stroke. Delay in seeking medical attention may affect what treatments can be given to you. . Non-Emergent Contact Non-Emergency issues call your: Primary Care Provider, Neurologist . . "Provider Documentation" section prepared by Laine Meraz. . Stroke Core Measures Reason no t-PA for Stroke: Treatment not indicated Reason no antithrom by day 2: Treatment provided - N/A Reason no antithrom at D/C: Treatment provided - N/A Reason no statin at D/C: Treatment provided - N/A Reason no anticoag w/a fib: Treatment not indicated
[2018-04-03 12:18] VITALS: BP 125/76; PULSE 54; TEMP 36.6; O2SAT 93
--- NOTE | 2018-04-03 12:27 | Discharge Summary ---
Discharge Summary Date of Service Apr 03, 2018. Discharge Summary Admission Date: Apr 02, 2018 at 11:40 Discharge Date: Apr 03, 2018 Discharge Disposition: Home Principal Diagnosis: TIA Problems/Secondary Diagnoses: History of left occipital ischemic CVA History of [id number]-[id number]-resolved Macular degeneration Right homonomous hemianopsia secondary to CVA Essential Tremor Mild mitral valve regurgitation BPH Chronic diastolic CHF Procedures: MRI brain MRA head and neck CT head Chest x-ray Consultations: Neurology Medication Reconciliation New Medications: Clopidogrel Bisulfate (Clopidogrel) 75 Mg Tab 75 MG PO QAM for 30 Days, #30 TAB Propranolol Hcl (Propranolol ER) 60 Mg Capcr 60 MG PO HS for 30 Days, #30 CAP Continued Medications: Acetaminophen (Mapap) 325 Mg Tab 650 MG PO Q4H PRN for Pain or Fever for 30 Days OTC Ascorbic Acid (Vitamin C) 1,000 Mg Tab 1000 MG PO DAILY Calcium Carbonate-Cholecalcife (Caltrate 600+D) 1 Tab Tab 1 TAB PO DAILY Finasteride (Finasteride) 5 Mg Tab 5 MG PO DAILY Lutein (Lutein) 20 Mg Cap 20 MG PO DAILY Multivitamin (Multivitamin) Tab 1 TAB PO DAILY, TAB Pravastatin Sod (Pravastatin Sodium) 10 Mg Tab 10 MG PO DAILY@17 for 30 Days, #30 TAB Discontinued Medications: Aspirin (Aspirin EC Low Dose) 81 Mg Ectab 81 MG PO QAM for 30 Days, #30 TABS Ibuprofen (Advil) 200 Mg Tab 400 MG PO QID PRN for Headache for 30 Days, #240 TAB Oxycodone HCl (Oxycodone HCl) 5 Mg Tab 5 MG PO Q4HWA PRN for liriano for 3 Days, #18 TAB Propranolol (Inderal) 80 Mg Tab 80 MG PO DAILY, TAB Referrals At Discharge Follow up Referrals: Neurologist Referral - Within 2 Weeks with Rory Ruff M.D. Discharge Exam All of his focal neurological symptoms are resolved. He denies headache, denies chest pain or shortness of breath. He has no other concerns at this time. Telemetry with sinus bradycardia and a first-degree AV maxim block, he had one asymptomatic 2.1 second sinus pause. He ambulated around the halls with physical therapy without assistance and did quite well. Review of Systems: Constitutional: No problem reported Eyes: No worsening of vision (Still with peripheral vision loss on the right ) ENT: No problem reported Respiratory: No problem reported Cardiovascular: No problem reported Abdomen: No problem reported Musculoskeletal: No problem reported Genitourinary - Male: No problem reported Neurologic: No problem reported Psychiatric: No problem reported Endocrine: No problem reported Hematologic / Lymphatic: No problem reported Integumentary: No problem reported Physical Exam: General Appearance: WD/WN, no apparent distress Eyes: normal inspection, PERRL, EOMI, sclerae normal ENT: hearing grossly normal, pharynx normal Neck: supple, no adenopathy, thyroid normal, no JVD, no carotid bruits, trachea midline Respiratory/Chest: lungs clear, normal breath sounds, no respiratory distress, no accessory muscle use Cardiovascular: no edema, no gallop, no JVD, no murmur, normal peripheral pulses, + bradycardia (With regular rhythm) Abdomen / GI: normal bowel sounds, non tender, soft, no organomegaly, no pulsatile mass Extremities: normal inspection, no calf tenderness, normal capillary refill , no pedal edema, normal range of motion, non-tender Neurologic/Psychiatric: 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 MRI of the brain showed his previous stroke and left occipital region, but no new strokes. MRA of the head and neck was negative for significant stenoses or aneurysm. Telemetry showed sinus bradycardia only. He was seen and evaluated by his neurologist, Dr. Ruff. The possibility of vertebrobasilar insufficiency with TIA is not completely excluded. Dr. Ruff recommended reducing the dose of his propranolol to 60 mg down from 80 mg, as well as switching from aspirin to Plavix once daily. It was also discovered that the patient has continued to take ibuprofen on a daily basis since his last admission for stroke. Originally, this was prescribed on a as needed basis for his post stroke headaches he was having at that time. He reports no headaches in several months, but thought he was to keep taking the ibuprofen daily. I informed him and his that he should avoid taking any further NSAIDs due to increased risk of stroke and [place]. He can take it occasionally as needed if having arthritis pain, but acetaminophen is preferred. It should be noted, he did not have an echocardiogram repeated this admission as he remained in a sinus rhythm, there is not a strong suspicion for embolic stroke, and he had a 2 week event monitor as an outpatient 2 months ago that did not show any occult atrial fibrillation. He should remain on his low-dose pravastatin. His serial troponin was negative 3. No ischemic changes on ECG. He was evaluated by physical and occupational therapy and did well with that-he was stable for discharge to home with follow-up with neurology recommended in 2- 3 weeks. He should also follow-up with his PCP within 1-2 weeks. Total Time Spent: Greater than 30 minutes This includes examination of the patient, discharge planning, medication reconciliation, and communication with other providers. Discharge Instructions Please refer to the electronic Patient Visit Report (Discharge Instructions) for additional information. Follow-Up With PCP within 1-2 weeks With neurology within 2-3 weeks. Additional Copies To Rory Ruff M.D.; Wayne Barrera M.D.
--- NOTE | 2018-04-03 15:28 | Pharmacy Progress Note ---
Pharmacist Stroke Counseling Date of Service Apr 03, 2018. Scope Pharmacy has been consulted to provide medication discharge counseling for this patient admitted with transient ischemic attack as per the Pharmacist Discharge Counseling for Stroke Patients Protocol. Medications on Discharge New Medications: Clopidogrel Bisulfate (Clopidogrel) 75 Mg Tab 75 MG PO QAM for 30 Days, #30 TAB Propranolol Hcl (Propranolol ER) 60 Mg Capcr 60 MG PO HS for 30 Days, #30 CAP Continued Medications: Acetaminophen (Mapap) 325 Mg Tab 650 MG PO Q4H PRN for Pain or Fever for 30 Days OTC Ascorbic Acid (Vitamin C) 1,000 Mg Tab 1000 MG PO DAILY Calcium Carbonate-Cholecalcife (Caltrate 600+D) 1 Tab Tab 1 TAB PO DAILY Finasteride (Finasteride) 5 Mg Tab 5 MG PO DAILY Lutein (Lutein) 20 Mg Cap 20 MG PO DAILY Multivitamin (Multivitamin) Tab 1 TAB PO DAILY, TAB Pravastatin Sod (Pravastatin Sodium) 10 Mg Tab 10 MG PO DAILY@17 for 30 Days, #30 TAB Discontinued Medications: Aspirin (Aspirin EC Low Dose) 81 Mg Ectab 81 MG PO QAM for 30 Days, #30 TABS Ibuprofen (Advil) 200 Mg Tab 400 MG PO QID PRN for Headache for 30 Days, #240 TAB Oxycodone HCl (Oxycodone HCl) 5 Mg Tab 5 MG PO Q4HWA PRN for liriano for 3 Days, #18 TAB Propranolol (Inderal) 80 Mg Tab 80 MG PO DAILY, TAB Action The above medications, specifically ones for stroke treatment/prophylaxis, have been reviewed in detail with the patient and/or patient car sales representative(s) prior to discharge. This includes indication, common adverse reactions, drug interactions, and medication administration. Medication counseling has been employed using the teach-back method to ensure understanding. Outcome The patient and/or patient car sales representative(s) have demonstrated understanding of the medications. Please note, they are aware that the pharmacist will call them within 72 hours post-discharge to confirm that the appropriate medications are being taken and answer any further medication related questions the patient might have at that time. Contact information Individual to be contacted: Patient Phone number: [phone] Best time to call: anytime Additional comments: * Counseled both patient and today on medication list prior to discharge * We discussed side effects specific to clopidogrel and pravastatin * Patient aware to stop aspirin, ibuprofen, etc as listed on the med list * Patient declined pill box since he already uses one * Of note, discussed statin dose with Dr. Meraz. No indication for high dose statin w/ low LDL and advanced age. This was a previous recommendation from neurology. Thank you for allowing pharmacy to be involved in the care of this patient. Please call [phone] or [phone] with any additional questions
[2018-04-04] MEDS ORDERED: CLOPIDOGREL BISULFATE 75 MG TAB PO SCH (09:00)
[2018-04-04] MEDS ORDERED: PROPRANOLOL HCL 60 MG LA CAP PO SCH (21:00)
--- NOTE | 2018-04-05 15:43 | Pharmacy Progress Note ---
Pharmacist Post D/C Phone Note Date of phone call: Apr 05, 2018. Individual with whom pharmacist spoke to: patient The following questions were reviewed during the phone call with responses listed below each: Can you tell me the medications that you are currently taking as well as when and how you take each medication? - yes- re-iterated prescription medications When have you missed any doses of your medications? - no What side effects are you having from your medications? - none What questions do you have about your medications? - patient questioned where to receive additional prescriptions for Plavix; counseled to ask at PCP visit and if that does not work try neurology What problems are you having obtaining your medications? - none When is your next appointment with your primary care doctor? - 04/11/18 with ERASTO Montenegro Additional comments: - N/A As per the Pharmacist Discharge Counseling for Stroke Patients Protocol, this phone call has been completed within 72 hours of discharge. Thank you for allowing us to be involved in the care of this patient. OR The patient and/or patient education courses sales representative(s) were unable to be reached for a follow-up phone call within the 72 hour time frame. Discharge counseling pharmacist contact information has already been provided to the patient should questions arise. Thank you for allowing us to be involved in the care of this patient.
== END 2018-04-03 13:30 | disposition home or self-care (01) ==
LOC: C.EDB 09:17 → C.MED 11:40 → ENRESERV 12:04
PROVIDERS: ADMIT Family Medicine; ATTEND Family Medicine
DX: G45.9 Transient cerebral ischemic attack, unspecified (principal); I69.398 Other sequelae of cerebral infarction; G25.0 Essential tremor; I34.0 Nonrheumatic mitral (valve) insufficiency; N40.0 Benign prostatic hyperplasia without lower urinary tract symptoms; I50.32 Chronic diastolic (congestive) heart failure; H35.30 Unspecified macular degeneration; H53.469 Homonymous bilateral field defects, unspecified side; Z88.2 Allergy status to sulfonamides; Z79.82 Long term (current) use of aspirin

== ENCOUNTER 2020-08-23 21:34 | Inpatient (IN) ==
[2020-08-23 21:54] LABS: Basophils # (auto) 0.07 K/uL (0-0.2); Basophils % (auto) 0.9 %; Eosinophils # (auto) 0.33 K/uL (0-0.5); Eosinophils % (auto) 4.4 %; Hematocrit (blood only) 42.7 % (42-52); Hemoglobin 14.3 g/dL (14.0-18.0); Immature Granulocytes # (auto) 0.02 K/uL (0.00-0.02); Immature Granulocytes % (auto) 0.3 %; Lymphocytes # (auto) 1.58 K/uL (1.2-3.4); Lymphocytes % (auto) 21.2 %; Mean Corpuscular Hemoglobin 30.6 pg (25-34); Mean Corpuscular Hgb Conc 33.5 g/dL (32-36); Mean Corpuscular Volume 91.4 fL (80-100); Mean Platelet Volume 10.1 fL (7.4-10.4); Monocytes # (auto) 0.65 K/uL (0.11-0.59); Monocytes % (auto) 8.7 %; Neutrophils % (auto) 64.5 %; Platelet Count 188 K/uL (130-400); RDW Coefficient of Variation 13.2 % (11.5-14.5); RDW Standard Deviation 43.7 fL (36.4-46.3); Red Blood Count 4.67 M/uL (4.7-6.1); White Blood Count 7.45 K/uL (4.8-10.8)
[2020-08-23] MEDS ORDERED: OPTIRAY 320 125ml IV ONE (21:59)
--- NOTE | 2020-08-23 22:07 | Emergency Department Note ---
History of Present Illness General Chief complaint: Visual Disturbance Stated complaint: VISUAL ISSUES, NEURO SX Time Seen by Provider: 08/23/20 21:37 History of Present Illness Provider complaint: Difficulty seeing Onset (ago): minute(s) (90) Location: eyes Current Pain Intensity: 0 Associated symptoms: no confusion, no chest pain, no cough, no fever/chills, no headaches, no nausea/vomiting, no rash, no seizure, no shortness of breath and no syncope 79-year-old male presents emergency department with visual disturbance. Patient states he was watching football game around 830 and noticed he could not see several players and some of the words. He reports no headache. He reports no eye pain. Patient denies any falls. Patient states he does have a usual peripheral vision loss due to her previous stroke however today's visual changes were different. Home Medications Medication Instructions Recorded Confirmed Type Caltrate 600 plus D 1 tab PO DAILY 08/22/18 08/23/20 History ascorbic acid (vitamin C) [Vitamin 1,000 mg PO QAM 08/22/18 08/23/20 History C] lutein 20 mg PO QAM 08/22/18 08/23/20 History multivitamin 1 tab PO DAILY 04/21/19 08/23/20 History propranolol 60 mg capsule,24 60 mg PO DAILY 90 Days #90 cap 06/18/20 08/23/20 Rx hr,extended release finasteride 5 mg tablet 5 mg PO QAM #90 tab 07/03/20 08/23/20 Rx pravastatin 10 mg tablet 10 mg PO QPM #90 tab 07/15/20 08/23/20 Rx amoxicillin See Rx Instructions PO ONCE PRN 08/23/20 08/23/20 History clopidogrel 75 mg PO QPM 08/23/20 08/23/20 History topiramate See Rx Instructions .ROUTE .COMPLEX 08/23/20 08/23/20 History Allergies Allergy/AdvReac Type Severity Reaction Status Date / Time Sulfa (Sulfonamide Allergy Mild Rash Verified 08/23/20 22:01 Antibiotics) Past Med/Surg History Medical History (Updated 08/23/20 @ 23:14 by Ryder Karimi) BPH (benign prostatic hyperplasia) Cancer SKIN CANCER-BCC Cardiac murmur Essential tremor RT ARM Hearing deficit BILAT. Hypertension Macular degeneration Osteoarthritis Stroke DECEMBER 2017 - ON PLAVIX - NO DEFICITS Surgical History H/O thumb surgery CYST REMOVED FROM THUMB History of anesthesia reaction WOKE UP IN THE MIDDLE OF INGUINAL SURGERY. History of colonoscopy W/ POLYPECTOMY History of herniorrhaphy BILAT INGUINAL HERNIA History of phacoemulsification of cataract of right eye with intraocular lens i mplantation History of tooth extraction Family History Father Alzheimer disease Unknown Prostate cancer Heart disease Other No family history of adverse response to anesthesia Social History Smoking Status: Never smoker Second Hand Exposure: No; Hx Alcohol Use: No Hx Substance Use: No Preferred Language: Nepali Communication Ability: Effective Fitness Centre Manager Required: No Beliefs That Will Affect Care: None Current Living Situation: Spouse Feels Safe at Home: Yes Assistive Devices: Glasses and Hearing Aid - Bilateral Review of Systems A total of 10 systems reviewed and were otherwise negative Physical Exam Vital Signs Vital Signs - 24 hr 08/23/20 21:38 08/23/20 21:40 08/23/20 22:14 Temperature 36.7 C Temperature Source Oral Pulse Rate 67 66 71 Pulse Rate from SpO2 Sensor 67 72 Pulse Rhythm Regular Pulse Strength Normal Respiratory Rate 16 18 18 Respiratory Effort / Characteristics Non-Labored Spontaneous Respiratory Depth Normal Respiratory Pattern Regular Blood Pressure 140/73 140/73 159/106 H Blood Pressure Mean 84 95 126 Blood Pressure Position Lying Pulse Oximetry 98 97 96 Oxygen Delivery Method Room Air Room Air Room Air Sepsis Recent Fever Within 48 Hours No Sepsis New/Unexplained Change in Mental Status No Sepsis Action Taken by Nursing No Action Required 08/23/20 22:31 Temperature Temperature Source Pulse Rate 63 Pulse Rate from SpO2 Sensor 64 Pulse Rhythm Pulse Strength Respiratory Rate 18 Respiratory Effort / Characteristics Respiratory Depth Respiratory Pattern Blood Pressure 137/61 Blood Pressure Mean 69 Blood Pressure Position Pulse Oximetry 97 Oxygen Delivery Method Room Air Sepsis Recent Fever Within 48 Hours Sepsis New/Unexplained Change in Mental Status Sepsis Action Taken by Nursing Physical Exam GENERAL: He is oriented to person, place, and time. He appears well-developed and well-nourished. He does not appear distressed. HENT: Exam performed. - Head: Normocephalic and atraumatic. - Right Ear: External ear normal. No mastoid tenderness. - Left Ear: External ear normal. No mastoid tenderness. - Mouth/Throat: The oropharynx is clear and moist. No trismus in the jaw. No dental abscesses or uvula swelling. No oropharyngeal exudate or tonsillar abscesses. EYES: Conjunctivae and EOM are normal. Pupils are equal, round, and reactive to light. Right eye exhibits no discharge. Left eye exhibits no discharge. No scleral icterus. Funduscopic exam showed no retinal edema or hemorrhages bilaterally. No AV nicking or papilledema bilaterally. No pierre red spot or pale retina bilaterally. NECK: Normal range of motion. Neck supple. No JVD present. No spinous process tenderness present. No carotid bruit present. No rigidity. No tracheal deviation and normal range of motion present. No Brudzinski's sign and no Kernig's sign noted. CV: Normal rate, regular rhythm, normal heart sounds and intact distal pulses. There is no peripheral edema. Palpable radial pulses bue. PULM/CHEST: Effort normal and breath sounds normal. No respiratory distress. No stridor. He has no wheezes. He has no rales. - Chest Wall: He exhibits no tenderness. ABD: The abdomen is soft. Bowel sounds are normal. He has no distension. No mass is present. There is no tenderness. There is no rebound, no guarding, no James's sign and no tenderness at McBurney's point. Rovsig negative. MUSC/SKEL: Normal range of motion. There is no peripheral edema, tenderness or deformity. LYMPH: No cervical adenopathy. NEURO: NIHSS: 4 (3:3 11:1) SKIN: Skin is warm and dry. He is not diaphoretic. PSYCH: He has a normal mood and affect. Behavior is normal. Judgment and thought content normal. Course Course 2136: The patient was evaluated in room B4. A complete history and physical exam was performed. Code stroke was called given the patient's neurological symptoms and being within the window for TPA. EMR reviewed. Patient has a history of a left occipital lobe ischemic stroke which occurred in 2018. Patient was seen in the hospital and admitted to the hospital at that time. He has seen Dr. Chamberlain from ophthalmology and Dr. Ruff from neurology in the past. Cardiac monitoring: An order was placed for continuous cardiac monitoring. The monitor shows a rate of 60 with sinus rhythm 2208: Vital signs stable. Discussed with Dr. Oriana Allred telestroke who will evaluate the patient. 2311: Vital signs stable. On reassessment patient states his vision has totally returned to its baseline. He is able to read my name badge in things on the tillman without any difficulty. He is able to watch TV and having no visual loss similar to earlier this evening. Labs are within normal limits imaging is within normal limits. Discussed with Dr. Oriana Allred telestashish who thinks that the patient had a TIA. He recommends an MRI in the morning, homocystine level, and possible evaluation for loop recorder for underlying atrial fibrillation which could be causing the patient to throw clots to cause his TIAs. Patient will be admitted to the [facility] service Dr. Guevara has been notified. Administered Medications Discontinued Medications Ioversol (Optiray 320 125ml) 120 ml IV ONCE ONE Stop: 08/23/20 22:00 Last Admin: 08/23/20 21:59 Dose: 120 ml Documented by: [id number] Medical Decision Making Laboratory Data Result diagrams: 08/23/20 Unknown 08/23/20 Unknown Lab Results 08/23/20 08/23/20 08/23/20 Range/Units 21:54 22:03 22:38 WBC (4.8-10.8) K/uL RBC (4.7-6.1) M/uL Hgb (14.0-18.0) g/dL POC Hgb 13.3 L (14.0-18.0) g/dl Hct (42-52) % POC Hct 39 L (42-52) % MCV (80-100) fL MCH (25-34) pg MCHC (32-36) g/dL RDW Std Deviation (36.4-46.3) fL RDW Coeff of Yaakov (11.5-14.5) % Plt Count (130-400) K/uL MPV (7.4-10.4) fL Immature Gran % (Auto) % Neut % (Auto) % Lymph % (Auto) % Howell % (Auto) % Eos % (Auto) % Baso % (Auto) % Neut # (Auto) (1.4-6.5) K/uL Lymph # (Auto) (1.2-3.4) K/uL Howell # (Auto) (0.11-0.59) K/uL Eos # (Auto) (0-0.5) K/uL Baso # (Auto) (0-0.2) K/uL Immature Gran # (Auto) (0.00-0.02) K/uL PT (9.0-12.0) Seconds INR (0.9-1.1) APTT (21.0-31.0) Seconds PTT Ratio POC Sodium 144 (135-144) mmol/L Sodium (136-145) mmol/L POC Potassium 3.7 (3.3-5.0) mmol/L Potassium 3.8 (3.5-5.1) mmol/L POC Chloride 111 (101-112) mmol/L Chloride (98-107) mmol/L Carbon Dioxide (21-32) mmol/L POC Total CO2 23 L (24-31) mmol/L Anion Gap (3-11) POC Anion Gap 14.0 L (16-25) mmol/L POC BUN 25 H (7-18) mg/dl BUN (7-18) mg/dl Creatinine (0.6-1.4) mg/dl POC Creatinine 1.2 (0.6-1.3) mg/dl Est Cr Clr Drug Dosing ml/min Est GFR ( Amer) Est GFR (Non-Af Amer) BUN/Creatinine Ratio (10-20) Glucose (70-99) mg/dl POC Glucose (other) 140 H (70-99) mg/dl Calcium (8.5-10.1) mg/dl POC Ioniz Calcium Clemencia 1.19 (1.12-1.32) mmol/l Magnesium 2.2 (1.8-2.4) mg/dl Total Bilirubin (0.2-1) mg/dl AST 18 (15-37) U/L ALT (12-78) U/L Alkaline Phosphatase (45-117) U/L Troponin I (0-0.045) ng/ml Total Protein (6.4-8.2) gm/dl Albumin (3.4-5.0) gm/dl Globulin (2.5-4.0) gm/dl Albumin/Globulin Ratio (0.9-2) Blood Type O Positive Antibody Screen NEGATIVE 08/23/20 08/23/20 08/23/20 Range/Units 22:38 Unknown Unknown WBC 7.45 (4.8-10.8) K/uL RBC 4.67 L (4.7-6.1) M/uL Hgb 14.3 (14.0-18.0) g/dL POC Hgb (14.0-18.0) g/dl Hct 42.7 (42-52) % POC Hct (42-52) % MCV 91.4 (80-100) fL MCH 30.6 (25-34) pg MCHC 33.5 (32-36) g/dL RDW Std Deviation 43.7 (36.4-46.3) fL RDW Coeff of Yaakov 13.2 (11.5-14.5) % Plt Count 188 (130-400) K/uL MPV 10.1 (7.4-10.4) fL Immature Gran % (Auto) 0.3 % Neut % (Auto) 64.5 % Lymph % (Auto) 21.2 % Howell % (Auto) 8.7 % Eos % (Auto) 4.4 % Baso % (Auto) 0.9 % Neut # (Auto) 4.80 (1.4-6.5) K/uL Lymph # (Auto) 1.58 (1.2-3.4) K/uL Howell # (Auto) 0.65 H (0.11-0.59) K/uL Eos # (Auto) 0.33 (0-0.5) K/uL Baso # (Auto) 0.07 (0-0.2) K/uL Immature Gran # (Auto) 0.02 (0.00-0.02) K/uL PT 11.2 Cancelled (9.0-12.0) Seconds INR 1.1 Cancelled (0.9-1.1) APTT 26.6 Cancelled (21.0-31.0) Seconds PTT Ratio 1.0 Cancelled POC Sodium (135-144) mmol/L Sodium (136-145) mmol/L POC Potassium (3.3-5.0) mmol/L Potassium (3.5-5.1) mmol/L POC Chloride (101-112) mmol/L Chloride (98-107) mmol/L Carbon Dioxide (21-32) mmol/L POC Total CO2 (24-31) mmol/L Anion Gap (3-11) POC Anion Gap (16-25) mmol/L POC BUN (7-18) mg/dl BUN (7-18) mg/dl Creatinine (0.6-1.4) mg/dl POC Creatinine (0.6-1.3) mg/dl Est Cr Clr Drug Dosing ml/min Est GFR ( Amer) Est GFR (Non-Af Amer) BUN/Creatinine Ratio (10-20) Glucose (70-99) mg/dl POC Glucose (other) (70-99) mg/dl Calcium (8.5-10.1) mg/dl POC Ioniz Calcium Clemencia (1.12-1.32) mmol/l Magnesium (1.8-2.4) mg/dl Total Bilirubin (0.2-1) mg/dl AST (15-37) U/L ALT (12-78) U/L Alkaline Phosphatase (45-117) U/L Troponin I (0-0.045) ng/ml Total Protein (6.4-8.2) gm/dl Albumin (3.4-5.0) gm/dl Globulin (2.5-4.0) gm/dl Albumin/Globulin Ratio (0.9-2) Blood Type Antibody Screen 08/23/20 Range/Units Unknown WBC (4.8-10.8) K/uL RBC (4.7-6.1) M/uL Hgb (14.0-18.0) g/dL POC Hgb (14.0-18.0) g/dl Hct (42-52) % POC Hct (42-52) % MCV (80-100) fL MCH (25-34) pg MCHC (32-36) g/dL RDW Std Deviation (36.4-46.3) fL RDW Coeff of Yaakov (11.5-14.5) % Plt Count (130-400) K/uL MPV (7.4-10.4) fL Immature Gran % (Auto) % Neut % (Auto) % Lymph % (Auto) % Howell % (Auto) % Eos % (Auto) % Baso % (Auto) % Neut # (Auto) (1.4-6.5) K/uL Lymph # (Auto) (1.2-3.4) K/uL Howell # (Auto) (0.11-0.59) K/uL Eos # (Auto) (0-0.5) K/uL Baso # (Auto) (0-0.2) K/uL Immature Gran # (Auto) (0.00-0.02) K/uL PT (9.0-12.0) Seconds INR (0.9-1.1) APTT (21.0-31.0) Seconds PTT Ratio POC Sodium (135-144) mmol/L Sodium 145 (136-145) mmol/L POC Potassium (3.3-5.0) mmol/L Potassium (3.5-5.1) mmol/L POC Chloride (101-112) mmol/L Chloride 117 H (98-107) mmol/L Carbon Dioxide 24 (21-32) mmol/L POC Total CO2 (24-31) mmol/L Anion Gap 4.0 (3-11) POC Anion Gap (16-25) mmol/L POC BUN (7-18) mg/dl BUN 26 H (7-18) mg/dl Creatinine 1.25 (0.6-1.4) mg/dl POC Creatinine (0.6-1.3) mg/dl Est Cr Clr Drug Dosing 47.9 ml/min Est GFR ( Amer) 63.1 Est GFR (Non-Af Amer) 54.4 BUN/Creatinine Ratio 20.5 H (10-20) Glucose 143 H (70-99) mg/dl POC Glucose (other) (70-99) mg/dl Calcium 8.3 L (8.5-10.1) mg/dl POC Ioniz Calcium Clemencia (1.12-1.32) mmol/l Magnesium (1.8-2.4) mg/dl Total Bilirubin 0.6 (0.2-1) mg/dl AST (15-37) U/L ALT 29 (12-78) U/L Alkaline Phosphatase 118 H (45-117) U/L Troponin I < 0.015 (0-0.045) ng/ml Total Protein 6.7 (6.4-8.2) gm/dl Albumin 3.5 (3.4-5.0) gm/dl Globulin 3.2 (2.5-4.0) gm/dl Albumin/Globulin Ratio 1.1 (0.9-2) Blood Type Antibody Screen Imaging Data Radiologist's Impression: HEAD & NECK CTA HISTORY: Visual difficulties. Work finding. Stroke Like Symptoms TECHNIQUE: Multiaxial CT images of the head were performed following the intravenous administration of contrast to evaluate the major cerebral vessels. Multiaxial CT images of the neck were also performed following the intravenous administration of contrast to evaluate the major cervical vessels. Maximum intensity projection images were also obtained. A dose lowering technique was utilized adhering to the principles of ALARA. COMPARISON: Head and neck MRA 04/02/2018. FINDINGS: There is no mass, hematoma, midline shift, or acute infarct. Visualized intracranial internal carotid arteries, distal vertebral arteries, and basilar artery are widely patent. There is no significant stenosis, occlusion, or aneurysm seen within the bilateral ACAs, MCAs, or beef selector. The major dural venous sinuses appear patent. There is a persistent right posterior circulation. This is considered to be a normal variant. The aortic arch and proximal great vessels are widely patent. There is no significant stenosis, occlusion, or dissection identified within the bilateral common carotid, internal carotid, or vertebral arteries. Mild calcified plaque within the bilateral carotid bifurcations. IMPRESSION: 1. No significant stenosis, occlusion, or aneurysm within the [place] of [place]. 2. No significant stenosis, occlusion, or dissection identified within the carotid or vertebral arteries. ACT 112: Negative or not required by law. Electronically signed by: Param Longo M.D. 08/23/2020 10:27 PM Dictated: 08/23/202218 Transcribed: 08/23/[address] DOSE: HISTORY: Difficulty seeing. Word finding. Stroke Like Symptoms TECHNIQUE: Multiaxial CT images of the head were performed without the use of intravenous contrast. Automated exposure control was utilized for this study. A dose lowering technique was utilized adhering to the principles of ALARA. Comparison: Head CT 04/02/2018. Findings: The paranasal sinuses and mastoid air cells are clear. The calvarium and skull base are intact. There is no mass, hematoma, midline shift, acute infarct. White matter hypodensity is nonspecific but suggestive of microvascular ischemic change. The ventricles and sulci demonstrate mild age-related involutional changes. There is an old small left posterior parietal lobe infarct. This remains unchanged. Impression: No significant change compared to the prior study. No acute intracranial abnormality. ACT 112: Negative or not required by law. Electronically signed by: Param Longo M.D. 08/23/2020 10:18 PM Dictated: 08/23/202211 Transcribed: 08/23/202211 ECG Data Indication: + other (code stroke) Rate (beats per minute): 66 Rhythm: + normal sinus ECG Intervals/blocks: + First degree AV block, + Normal QRS and + Normal QT-c ECG ST segments: + Normal ST segments [facility] Narrative 2136: The patient was evaluated in room B4. A complete history and physical exam was performed. Code stroke was called given the patient's neurological symptoms and being within the window for TPA. EMR reviewed. Patient has a history of a left occipital lobe ischemic stroke which occurred in 2018. Patient was seen in the hospital and admitted to the hospital at that time. He has seen Dr. Chamberlain from ophthalmology and Dr. Ruff from neurology in the past. 2208: Vital signs stable. Discussed with Dr. Oriana rodriguez who will evaluate the patient. 2310: Vital signs stable. On reassessment patient states his vision has totally returned to its baseline. He is able to read my name badge in things on the tillman without any difficulty. He is able to watch TV and having no visual loss similar to earlier this evening. Labs are within normal limits imaging is within normal limits. Discussed with Dr. Oriana rodriguez who thinks that the patient had a TIA. He recommends an MRI in the morning, homocystine level, and possible evaluation for loop recorder for underlying atrial fibrillation which could be causing the patient to throw clots to cause his TIAs . Patient will be admitted to the [facility] service Dr. Guevara has been notified. Impression & Plan TIA (transient ischemic attack) Discharge Plan Visit Data Chief Complaint: Visual Disturbance Stated Complaint: VISUAL ISSUES, NEURO SX ED Provider: Ryder Karimi Discharge Problem: TIA (transient ischemic attack) Patient Disposition: Admitted As Inpatient Forms Stand Alone Forms: My [facility] Prescriptions Prescriptions: No Action pravastatin 10 mg tablet 10 mg PO QPM Qty: 90 RF: 3 finasteride 5 mg tablet 5 mg PO QAM Qty: 90 RF: 3 multivitamin [Multiple Vitamins] tablet 1 tab PO DAILY RF: 0 propranolol 60 mg capsule,extended release 24 hr 60 mg PO DAILY 90 Days Qty: 90 RF: 1 amoxicillin 500 mg capsule See Rx Instructions PO ONCE PRN (Reason: Prior to Dental Procedure) RF: 0 clopidogrel 75 mg tablet 75 mg PO QPM RF: 0 topiramate 50 mg tablet See Rx Instructions .ROUTE .COMPLEX RF: 0 ascorbic acid (vitamin C) [Vitamin C] 1,000 mg Tablet 1,000 mg PO QAM RF: 0 lutein 20 mg Capsule 20 mg PO QAM RF: 0 Caltrate 600 plus D 600 mg (1,500 mg)-800 unit Tablet,Chewable 1 tab PO DAILY RF: 0 Referrals Referrals: Wayne Barrera MD [Primary Care Provider] -
[2020-08-23 22:18] LABS: iSTAT Creatinine 1.2 mg/dl (0.6-1.3); iSTAT Hemoglobin 13.3 g/dl (14.0-18.0); iSTAT Ionized Calcium 1.19 mmol/l (1.12-1.32); iSTAT Potassium 3.7 mmol/L (3.3-5.0)
--- NOTE | 2020-08-23 22:20 | CT Scan Report ---
HEAD CT NONCONTRAST CT DOSE: HISTORY: Difficulty seeing. Word finding. Stroke Like Symptoms TECHNIQUE: Multiaxial CT images of the head were performed without the use of intravenous contrast. A utomated exposure control was utilized for this study. A dose lowering technique was utilized adheri ng to the principles of ALARA. Comparison: Head CT 04/02/2018. Findings: The paranasal sinuses and mastoid air cells are clear. The calvarium and skull base are int act. There is no mass, hematoma, midline shift, acute infarct. White matter hypodensity is nonspecifi c but suggestive of microvascular ischemic change. The ventricles and sulci demonstrate mild age-rela darlene involutional changes. There is an old small left posterior parietal lobe infarct. This remains un changed. Impression: No significant change compared to the prior study. No acute intracranial abnormality. ACT 112: Negative or not required by law. Electronically signed by: Param Longo M.D. 08/23/2020 10:18 PM
[2020-08-23 22:21] LABS: Alanine Aminotransferase 29 U/L (12-78); Albumin Globulin Ratio 1.1 (0.9-2); Albumin Level 3.5 gm/dl (3.4-5.0); Alkaline Phosphatase 118 U/L (45-117); BUN Creatinine Ratio 20.5 (10-20); Bilirubin,Total 0.6 mg/dl (0.2-1); Blood Urea Nitrogen 26 mg/dl (7-18); Calcium 8.3 mg/dl (8.5-10.1); Carbon Dioxide 24 mmol/L (21-32); Chloride 117 mmol/L (98-107); Creatinine Clr Calc Pharmacy 47.9 ml/min; Est GFR (African American) 63.1; Est GFR (Non-African American) 54.4; Globulin 3.2 gm/dl (2.5-4.0); Glucose 143 mg/dl (70-99); Sodium 145 mmol/L (136-145); Total Protein 6.7 gm/dl (6.4-8.2); Troponin I < 0.015 ng/ml (0-0.045)
--- NOTE | 2020-08-23 22:28 | CT Scan Report ---
HEAD & NECK CTA HISTORY: Visual difficulties. Work finding. Stroke Like Symptoms TECHNIQUE: Multiaxial CT images of the head were performed following the intravenous administration o f contrast to evaluate the major cerebral vessels. Multiaxial CT images of the neck were also perform ed following the intravenous administration of contrast to evaluate the major cervical vessels. Maxim um intensity projection images were also obtained. A dose lowering technique was utilized adhering to the principles of ALARA. COMPARISON: Head and neck MRA 04/02/2018. FINDINGS: There is no mass, hematoma, midline shift, or acute infarct. Visualized intracranial internal carotid arteries, distal vertebral arteries, and basilar artery are widely patent. There is no significant s tenosis, occlusion, or aneurysm seen within the bilateral ACAs, MCAs, or field installation technician. The major dural venous sinuses appear patent. There is a persistent right posterior circulation. This is considered t o be a normal variant. The aortic arch and proximal great vessels are widely patent. There is no significant stenosis, occ lusion, or dissection identified within the bilateral common carotid, internal carotid, or vertebral arteries. Mild calcified plaque within the bilateral carotid bifurcations. IMPRESSION: 1. No significant stenosis, occlusion, or aneurysm within the [place] of [place]. 2. No significant stenosis, occlusion, or dissection identified within the carotid or vertebral arter ies. ACT 112: Negative or not required by law. Electronically signed by: Param Longo M.D. 08/23/2020 10:27 PM
--- NOTE | 2020-08-23 22:28 | CT Scan Report ---
HEAD & NECK CTA HISTORY: Visual difficulties. Work finding. Stroke Like Symptoms TECHNIQUE: Multiaxial CT images of the head were performed following the intravenous administration o f contrast to evaluate the major cerebral vessels. Multiaxial CT images of the neck were also perform ed following the intravenous administration of contrast to evaluate the major cervical vessels. Maxim um intensity projection images were also obtained. A dose lowering technique was utilized adhering to the principles of ALARA. COMPARISON: Head and neck MRA 04/02/2018. FINDINGS: There is no mass, hematoma, midline shift, or acute infarct. Visualized intracranial internal carotid arteries, distal vertebral arteries, and basilar artery are widely patent. There is no significant s tenosis, occlusion, or aneurysm seen within the bilateral ACAs, MCAs, or business information consultant. The major dural venous sinuses appear patent. There is a persistent right posterior circulation. This is considered t o be a normal variant. The aortic arch and proximal great vessels are widely patent. There is no significant stenosis, occ lusion, or dissection identified within the bilateral common carotid, internal carotid, or vertebral arteries. Mild calcified plaque within the bilateral carotid bifurcations. IMPRESSION: 1. No significant stenosis, occlusion, or aneurysm within the [place] of [place]. 2. No significant stenosis, occlusion, or dissection identified within the carotid or vertebral arter ies. ACT 112: Negative or not required by law. Electronically signed by: Param Longo M.D. 08/23/2020 10:27 PM
[2020-08-23 23:00] LABS: INR 1.1 (0.9-1.1); Partial Thromboplastin Time 26.6 Seconds (21.0-31.0); Prothrombin Time 11.2 Seconds (9.0-12.0)
[2020-08-23 23:02] LABS: Potassium 3.8 mmol/L (3.5-5.1)
[2020-08-23 23:07] LABS: Magnesium 2.2 mg/dl (1.8-2.4)
--- NOTE | 2020-08-23 23:22 | History & Physical Report ---
Date of Service August 23, 2020 Assessment & Plan (1) TIA (transient ischemic attack): Patient is a 79-year-old male with a past medical history of mild ASIF, inguinal hernia, Dupuytren's contracture, benign essential tremor, BPH with urinary obstruction, macular degeneration, and homonymous hemianopsia due to stroke at least 3 years ago who presents this evening for evaluation of bilateral inability to see certain letters and questionable ability to see all the players in the field. #Visual Deficit secondary to TIA versus progression of prior deficits from previous stroke in the setting of a patient with a history of prior strokes resulting in bilateral homonymous hemianopsia Patient had a stroke approximately 3 years ago which resulted in the loss of his bilateral temporal peripheral field, he has no other residual side effects from that stroke. This evening while watching the football game he found himself having the inability to see certain letters on the screen and players on the field. Given his prior history of stroke the symptoms caused him to present to the emergency department. In the emergency department he noted his symptoms wax and wane. While I was in the room he stated he was unable to see the second T and [place] or the D and deal. Imaging findings would suggest that this is not due to any acute new intracranial cerebrovascular event, he will be admitted for further evaluation and management and consultation with neurology -Follow-up brain MRI -Consult neurology -Monitor on telemetry -Telestroke requesting homocystine levels -Can consider outpatient loop recorder Dupuytren's contracture with ulnar neuropathy at the elbow -Followed by outpatient neurology #Essential tremor -Holding propanolol -Continue Topamax #BPH with urinary obstruction -Continue finasteride #Mild ASIF Does not wear CPAP at home FENa: Regular diet Code Status: Full code DVT PPX: SCDs PT/OT: Not indicated Dispo: MedSurg with telemetry Hunter Guevara MD PGY 3, FCM This chart was completed utilizing [employer] voice recognition software. Grammatical errors, random word insertions, pronoun errors, and in complete sentences are an occasional consequence of the system. Any questions or concerns about the content, text, or information contained within the body of this dictation should be addressed directly to the physician for clarification. (2) Ulnar neuropathy at elbow: (3) H/O: stroke with residual effects: (4) Essential tremor: (5) Mild obstructive sleep apnea: (6) Homonymous hemianopsia due to recent stroke: (7) Dupuytrens contracture: (8) Benign prostatic hyperplasia with urinary obstruction: (9) Alexia: History of Present Illness Patient is a 79-year-old male with a past medical history of mild ASIF, inguinal hernia, Dupuytren's contracture, benign essential tremor, BPH with urinary obstruction, macular degeneration, and homonymous hemianopsia due to stroke at least 3 years ago who presents this evening for evaluation of bilateral inabili ty to see certain letters and questionable ability to see all the players in the field. Patient was in his usual state of health denying any recent constitutional symptoms, illnesses, Covid contacts, or other concerning signs or symptoms. Patient endorses being a little tired, he sat down to watch the game this evening when he noticed the inability to see certain letters. The symptoms caused him to present to the emergency room, in the emergency room he was given the imaging studies detailed below. He stated his symptoms resolved temporarily, however upon moving to a different room his symptoms resumed. As an example of his symptoms he endorsed inability to see the second T and [place], or the D in deal on the TV. He states he is unable to find a pattern and his inability to see letters, and was also concerned earlier while watching the game that he was unable to see certain players on the field. The patient reports no other neuro symptoms and has no other acute findings. All questions were answered no acute concerns, the primary team was called for admission given the patient's new neuro symptoms. Upon arrival to the emergency department routine lab work was obtained, CBC within normal limits, coags within normal limits, CMP demonstrating BUN of 26, glucose of 143, alk phos of 118 Covid test pending. Imaging studies were obtained neck CTA shows no significant stenosis occlusion or aneurysm within the [place], no significant stenosis, occlusion, or dissection to divide within the carotid or vertebral arteries. Head CTA demonstrated no significant change compared to prior study no acute intracranial abnormalities. Primary Care Provider: Wayne Barrera MD Allergies Allergy/AdvReac Type Severity Reaction Status Date / Time Sulfa (Sulfonamide Allergy Mild Rash Verified 08/23/20 22:01 Antibiotics) Home Medications Medication Instructions Recorded Confirmed Type Caltrate 600 plus D 1 tab PO DAILY 08/22/18 08/23/20 History ascorbic acid (vitamin C) [Vitamin 1,000 mg PO QAM 08/22/18 08/23/20 History C] lutein 20 mg PO QAM 08/22/18 08/23/20 History multivitamin 1 tab PO DAILY 04/21/19 08/23/20 History propranolol 60 mg capsule,24 60 mg PO DAILY 90 Days #90 cap 06/18/20 08/23/20 Rx hr,extended release finasteride 5 mg tablet 5 mg PO QAM #90 tab 07/03/20 08/23/20 Rx pravastatin 10 mg tablet 10 mg PO QPM #90 tab 07/15/20 08/23/20 Rx amoxicillin See Rx Instructions PO ONCE PRN 08/23/20 08/23/20 History clopidogrel 75 mg PO QPM 08/23/20 08/23/20 History topiramate See Rx Instructions .ROUTE .COMPLEX 08/23/20 08/23/20 History Past Med/Surg History Medical History (Updated 08/24/20 @ 00:10 by Hunter Guevara MD) BPH (benign prostatic hyperplasia) Cancer [facility] Cardiac murmur Essential tremor RT ARM Hearing deficit BILAT. Hypertension Macular degeneration Osteoarthritis Stroke DECEMBER 2017 - ON PLAVIX - NO DEFICITS Surgical History H/O thumb surgery CYST REMOVED FROM THUMB History of anesthesia reaction WOKE UP IN THE MIDDLE OF INGUINAL SURGERY. History of colonoscopy W/ POLYPECTOMY History of herniorrhaphy BILAT INGUINAL HERNIA History of phacoemulsification of cataract of right eye with intraocular lens implantation History of tooth extraction Family History Father Alzheimer disease Unknown Prostate cancer Heart disease Other No family history of adverse response to anesthesia Social History Smoking Status: Never smoker Second Hand Exposure: No; Hx Alcohol Use: No Hx Substance Use: No Preferred Language: Slovenian Communication Ability: Effective Supervisor [employer] Required: No Beliefs That Will Affect Care: None Current Living Situation: Spouse Feels Safe at Home: Yes Assistive Devices: Glasses and Hearing Aid - Bilateral Review of Systems Review of Systems: All systems reviewed & are unremarkable except as noted in HPI & below Physical Exam Physical Exam: General: In no acute distress lying in bed HEENT: Normocephalic atraumatic Neck: Normal to visual inspection, trachea midline Cardiac: Regular rate and rhythm I did not appreciate significant murmurs rubs or gallops, normal S1, normal S2, negative calf tenderness, negative pedal edema Respiratory: Clear to auscultation bilaterally with symmetrical chest expansion I did not appreciate any focal wheezes, rales, rhonchi, no increased work of breathing GI: Soft, nontender, nondistended, bowel sounds present all 4 quadrants MSK: Moves all extremitie Neuro: Alert and oriented x4, CN II through XII grossly intact, question his ability to smile, versus baseline, appear to be symmetrical weakness, no focal weakness, proprioception intact, cerebellar function intact, sensory function intact, motor function intact, the only acute new neurological finding is the inability to see certain letters for example the second T and [place] or the D in deal Psych: Alert and oriented x4 Results & Data [facility] & [facility] ([facility]) Vital Signs (Past 12 Hours) Vital Signs Temp Pulse Resp BP Pulse Ox 08/23/20 22:31 63 18 137/61 97 08/23/20 22:14 71 18 159/106 H 96 08/23/20 21:40 36.7 C 66 18 140/73 97 08/23/20 21:38 67 16 140/73 98 Laboratory Results 08/23/20 08/23/20 08/23/20 Range/Units Unknown Unknown Unknown WBC 7.45 (4.8-10.8) K/uL RBC 4.67 L (4.7-6.1) M/uL Hgb 14.3 (14.0-18.0) g/dL POC Hgb (14.0-18.0) g/dl Hct 42.7 (42-52) % POC Hct (42-52) % MCV 91.4 (80-100) fL MCH 30.6 (25-34) pg MCHC 33.5 (32-36) g/dL RDW Std Deviation 43.7 (36.4-46.3) fL RDW Coeff of Yaakov 13.2 (11.5-14.5) % Plt Count 188 (130-400) K/uL MPV 10.1 (7.4-10.4) fL Immature Gran % (Auto) 0.3 % Neut % (Auto) 64.5 % Lymph % (Auto) 21.2 % [place] % (Auto) 8.7 % Eos % (Auto) 4.4 % Baso % (Auto) 0.9 % Neut # (Auto) 4.80 (1.4-6.5) K/uL Lymph # (Auto) 1.58 (1.2-3.4) K/uL [place] # (Auto) 0.65 H (0.11-0.59) K/uL Eos # (Auto) 0.33 (0-0.5) K/uL Baso # (Auto) 0.07 (0-0.2) K/uL Immature Gran # (Auto) 0.02 (0.00-0.02) K/uL PT Cancelled (9.0-12.0) Seconds INR Cancelled (0.9-1.1) APTT Cancelled (21.0-31.0) Seconds PTT Ratio Cancelled POC Sodium (135-144) mmol/L Sodium 145 (136-145) mmol/L POC Potassium (3.3-5.0) mmol/L Potassium (3.5-5.1) mmol/L POC Chloride (101-112) mmol/L Chloride 117 H (98-107) mmol/L Carbon Dioxide 24 (21-32) mmol/L POC Total CO2 (24-31) mmol/L Anion Gap 4.0 (3-11) POC Anion Gap (16-25) mmol/L POC BUN (7-18) mg/dl BUN 26 H (7-18) mg/dl Creatinine 1.25 (0.6-1.4) mg/dl POC Creatinine (0.6-1.3) mg/dl Est Cr Clr Drug Dosing 47.9 ml/min Est GFR ( Amer) 63.1 Est GFR (Non-Af Amer) 54.4 BUN/Creatinine Ratio 20.5 H (10-20) Glucose 143 H (70-99) mg/dl POC Glucose (other) (70-99) mg/dl Calcium 8.3 L (8.5-10.1) mg/dl POC Ioniz Calcium Clemencia (1.12-1.32) mmol/l Magnesium (1.8-2.4) mg/dl Total Bilirubin 0.6 (0.2-1) mg/dl AST (15-37) U/L ALT 29 (12-78) U/L Alkaline Phosphatase 118 H (45-117) U/L Troponin I < 0.015 (0-0.045) ng/ml Total Protein 6.7 (6.4-8.2) gm/dl Albumin 3.5 (3.4-5.0) gm/dl Globulin 3.2 (2.5-4.0) gm/dl Albumin/Globulin Ratio 1.1 (0.9-2) Blood Type Antibody Screen 08/23/20 08/23/20 08/23/20 Range/Units 22:38 22:38 22:03 WBC (4.8-10.8) K/uL RBC (4.7-6.1) M/uL Hgb (14.0-18.0) g/dL POC Hgb 13.3 L (14.0-18.0) g/dl Hct (42-52) % POC Hct 39 L (42-52) % MCV (80-100) fL MCH (25-34) pg MCHC (32-36) g/dL RDW Std Deviation (36.4-46.3) fL RDW Coeff of Yaakov (11.5-14.5) % Plt Count (130-400) K/uL MPV (7.4-10.4) fL Immature Gran % (Auto) % Neut % (Auto) % Lymph % (Auto) % [place] % (Auto) % Eos % (Auto) % Baso % (Auto) % Neut # (Auto) (1.4-6.5) K/uL Lymph # (Auto) (1.2-3.4) K/uL [place] # (Auto) (0.11-0.59) K/uL Eos # (Auto) (0-0.5) K/uL Baso # (Auto) (0-0.2) K/uL Immature Gran # (Auto) (0.00-0.02) K/uL PT 11.2 (9.0-12.0) Seconds INR 1.1 (0.9-1.1) APTT 26.6 (21.0-31.0) Seconds PTT Ratio 1.0 POC Sodium 144 (135-144) mmol/L Sodium (136-145) mmol/L POC Potassium 3.7 (3.3-5.0) mmol/L Potassium 3.8 (3.5-5.1) mmol/L POC Chloride 111 (101-112) mmol/L Chloride (98-107) mmol/L Carbon Dioxide (21-32) mmol/L POC Total CO2 23 L (24-31) mmol/L Anion Gap (3-11) POC Anion Gap 14.0 L (16-25) mmol/L POC BUN 25 H (7-18) mg/dl BUN (7-18) mg/dl Creatinine (0.6-1.4) mg/dl POC Creatinine 1.2 (0.6-1.3) mg/dl Est Cr Clr Drug Dosing ml/min Est GFR ( Amer) Est GFR (Non-Af Amer) BUN/Creatinine Ratio (10-20) Glucose (70-99) mg/dl POC Glucose (other) 140 H (70-99) mg/dl Calcium (8.5-10.1) mg/dl POC Ioniz Calcium Clemencia 1.19 (1.12-1.32) mmol/l Magnesium 2.2 (1.8-2.4) mg/dl Total Bilirubin (0.2-1) mg/dl AST 18 (15-37) U/L ALT (12-78) U/L Alkaline Phosphatase (45-117) U/L Troponin I (0-0.045) ng/ml Total Protein (6.4-8.2) gm/dl Albumin (3.4-5.0) gm/dl Globulin (2.5-4.0) gm/dl Albumin/Globulin Ratio (0.9-2) Blood Type Antibody Screen 08/23/20 Range/Units 21:54 WBC (4.8-10.8) K/uL RBC (4.7-6.1) M/uL Hgb (14.0-18.0) g/dL POC Hgb (14.0-18.0) g/dl Hct (42-52) % POC Hct (42-52) % MCV (80-100) fL MCH (25-34) pg MCHC (32-36) g/dL RDW Std Deviation (36.4-46.3) fL RDW Coeff of Yaakov (11.5-14.5) % Plt Count (130-400) K/uL MPV (7.4-10.4) fL Immature Gran % (Auto) % Neut % (Auto) % Lymph % (Auto) % [place] % (Auto) % Eos % (Auto) % Baso % (Auto) % Neut # (Auto) (1.4-6.5) K/uL Lymph # (Auto) (1.2-3.4) K/uL [place] # (Auto) (0.11-0.59) K/uL Eos # (Auto) (0-0.5) K/uL Baso # (Auto) (0-0.2) K/uL Immature Gran # (Auto) (0.00-0.02) K/uL PT (9.0-12.0) Seconds INR (0.9-1.1) APTT (21.0-31.0) Seconds PTT Ratio POC Sodium (135-144) mmol/L Sodium (136-145) mmol/L POC Potassium (3.3-5.0) mmol/L Potassium (3.5-5.1) mmol/L POC Chloride (101-112) mmol/L Chloride (98-107) mmol/L Carbon Dioxide (21-32) mmol/L POC Total CO2 (24-31) mmol/L Anion Gap (3-11) POC Anion Gap (16-25) mmol/L POC BUN (7-18) mg/dl BUN (7-18) mg/dl Creatinine (0.6-1.4) mg/dl POC Creatinine (0.6-1.3) mg/dl Est Cr Clr Drug Dosing ml/min Est GFR ( Amer) Est GFR (Non-Af Amer) BUN/Creatinine Ratio (10-20) Glucose (70-99) mg/dl POC Glucose (other) (70-99) mg/dl Calcium (8.5-10.1) mg/dl POC Ioniz Calcium [place] (1.12-1.32) mmol/l Magnesium (1.8-2.4) mg/dl Total Bilirubin (0.2-1) mg/dl AST (15-37) U/L ALT (12-78) U/L Alkaline Phosphatase (45-117) U/L Troponin I (0-0.045) ng/ml Total Protein (6.4-8.2) gm/dl Albumin (3.4-5.0) gm/dl Globulin (2.5-4.0) gm/dl Albumin/Globulin Ratio (0.9-2) Blood Type O Positive Antibody Screen NEGATIVE Code Status & VTE Plan Code Status full VTE Prophylaxis Plan VTE Prophylaxis will be ordered: Yes Supervising Physician Co-Signing Physician Notes Patient seen and examined, chart reviwed, case discussed with Dr. Ying Guevara and I agree with his assessment and plan. Briefly, patient is a 79yo C male with history of occipital CVA in 2018 with residual homonymous hemianopsia on Plavix and Pravastatin therapy. Patient was watching the football game [employer] when he noted acute visual disturbance - inability to see certain letters and certain players on the field. The deficit had acute onset, painless, involving both eyes. He states that it did not seem to be in his central visual field. Denies redness, pain, tearing, swelling of the eye. No flashing lights, no amarosis fugax or scotoma. He does not describe seeing black spots or even blind spots - simply that certain letters are not seen. Is not positional. No BASURTO/slurred speech/numbness/tingling/weakness/confusion/facial droop. He has macular degeneration On exam he is afebrile, HD stable HEENT - NC/AT, PERRL, EOMI, conjunctiva pink without injection, no scleral icterus, limited bedside fundoscopic exam appears normal, CN intact with exception of preexisting homonymous hemianopsia - ?face appears slightly mask- like, MS 5/5 in UE/LE bilaterally, no rigidity Heart - +S1/S2, regular, no m/r/g, no bruits Heart - +S1/S2, regular, no m/r/g Lungs - CTA Abd- +BS, soft, NT/ND Ext - trace edema Labs and images reviewed Assessment/Plan - transient binocular visual disturbance in patient with prior CVA -?TIA/CVA - Neuro checks, MRI, Echo, Neuro consult appreciated. Continue Plavix/pravastatin. Check homocysteine and consider outpatient evaluation for underlying arrhythmia -?Formal ophtho exam -Remainder of plan as above Resident Activity Tracking Resident Involvement: Resident Care Provided Care Provided: [facility]
[2020-08-24] MEDS ORDERED: ONDANSETRON INJ 2 MG/ML 2 ML VIAL IV PRN (00:07)
[2020-08-24] MEDS ORDERED: POLYETHYLENE (MIRALAX) 17 GM PACK PO PRN (00:07)
[2020-08-24] MEDS: SODIUM CHLORIDE 0.9% 1000ML 1,000 ML IV SCH ×3 (00:30→23:06)
--- NOTE | 2020-08-24 00:47 | Billing Data ---
Date of Service August 24, 2020 Coding Level of Care Code 83146 OBS Care - Level 3
[2020-08-24] MEDS: TOPIRAMATE 50 MG TAB PO SCH (08:09)
[2020-08-24] MEDS: MULTIVITAMIN TAB PO SCH (08:09)
[2020-08-24] MEDS: FINASTERIDE 5 MG TAB PO SCH (08:09)
[2020-08-24] MEDS: CALCIUM 600MG + VIT D 400 IU TAB PO SCH (08:09)
[2020-08-24] MEDS: ASCORBIC ACID 500 MG TAB PO SCH (08:10)
[2020-08-24] MEDS: ACETAMINOPHEN 325 MG TAB PO PRN ×2 (08:46→21:04)
[2020-08-24] MEDS ORDERED: NON-FORMULARY MEDICATION (Lutein 20 mg Capsule) PO SCH (09:00)
[2020-08-24] MEDS ORDERED: SODIUM CHLORIDE 0.9% 1000ML 500 ML IV ONE (11:31)
--- NOTE | 2020-08-24 12:41 | Hospitalist Progress Note ---
Date of Service August 24, 2020 Assessment & Plan (1) Stroke: Presenting symptoms - visual changes which have persisted. MRI brain with acute CVA right temporal-occipital region. MRI brain also shows prior CVA in left occipital region. Current CVA occurred while taking plavix. CTA head/neck without abnormalities. Tele thus far negative. Echo pending. Etiology?? Occult embolus from PAF? Other cardiac abnormality? Agree patient should have loop recorder implantation to r/o PAF, etc. Agree with addition of asa and changing plavix to brilinta. Lipids/a1c. Await echo. PT, OT, speech. appreciate neuro consultation and recs. (2) H/O: stroke with residual effects: 2018 - CVA left occipital lobe with resulting visual field cuts. Now with new stroke right temporal-occipital region - etiology uncertain. See above. (3) Ulnar neuropathy at elbow: f/u orthopedics as outpatient for this. Unrelated to acute CVA. (4) Essential tremor: Cont home meds. (5) Mild obstructive sleep apnea: Not on NIPPV for such. (6) Benign prostatic hyperplasia with urinary obstruction: Cont home meds. (7) DVT prophylaxis: add lovenox 40mg qam cont IVF - increase rate to 100cc/hr BMP am updated by phone this evening Admission and Anticipated Discharge Date Admission Date: August 24, 2020 Subjective patient continues with very mild visual deficits - he is not reporting a new visual field cut relative to prior stroke but he states he "can't see certain letters on the wall". vision is not blurry. no motor weakness. no sensory loss or change. no ataxia. no dysarthria, aphasia, or dysphagia today. denies h/o a.fib. states he wore a monitor for 2-3 days in the past - to his recollection he had "extra beats". tele overnight - NSR. Review of Systems Constitutional: no fever, no chills, no fatigue and no anorexia Eyes: no diplopia Ear, Nose, Mouth, Throat: no dysphagia Respiratory: no cough and no dyspnea Cardiovascular: no chest pain Gastrointestinal: no abdominal pain Physical Exam Constitutional: well developed and well nourished; no acute distress and no altered mental status Eyes: PERRL; + abnormal visual field confrontation (R-sided inferior quandrantopia ) ENMT: external ear and nose normal, oropharynx normal Respiratory: normal respiratory effort, lungs clear to auscultation Cardiovascular: Rate/Rhythm: regular rate and regular rhythm Heart Sounds: normal S1 and normal S2; no murmur Vessels: posterior tibial pulses present and dorsalis pedis pulses present; no JVD Extremities: no edema Gastrointestinal (Abdomen): normal bowel sounds, soft, nontender, no hepatosplenomegaly Neurologic: moves all extremities; no focal motor deficits Speech / Cognition: normal speech Motor/Sensory: no pronator drift Cranial Nerves: normal facial strength and no nystagmus Gait: no ataxic gait Coordination: normal [id number] test Psychiatric: A+Ox3, euthymic affect Results & Data Results & Data ([facility]) Vital Signs (Past 12 Hours) Vital Signs Temp Pulse Pulse Resp BP BP BP 08/24/20 11:25 36.7 C 57 L 18 108/63 08/24/20 07:46 36.7 C 56 L 18 96/51 L 08/24/20 07:42 55 L 08/24/20 05:51 64 08/24/20 02:25 36.6 C 59 L 18 142/80 H 08/24/20 01:50 66 17 138/62 08/24/20 01:00 60 17 114/76 08/24/20 00:45 61 16 129/82 Pulse Ox 08/24/20 11:25 97 08/24/20 07:46 95 08/24/20 07:42 08/24/20 05:51 08/24/20 02:25 97 08/24/20 01:50 08/24/20 01:00 98 08/24/20 00:45 98 Laboratory Results Laboratory Results - last 24 hr 08/23/20 08/23/20 08/23/20 21:54 22:03 22:38 WBC RBC Hgb POC Hgb 13.3 L Hct POC Hct 39 L MCV MCH MCHC RDW Std Deviation RDW Coeff of Yaakov Plt Count MPV Immature Gran % (Auto) Neut % (Auto) Lymph % (Auto) [place] % (Auto) Eos % (Auto) Baso % (Auto) Neut # (Auto) Lymph # (Auto) [place] # (Auto) Eos # (Auto) Baso # (Auto) Immature Gran # (Auto) PT INR APTT PTT Ratio POC Sodium 144 Sodium POC Potassium 3.7 Potassium 3.8 POC Chloride 111 Chloride Carbon Dioxide POC Total CO2 23 L Anion Gap POC Anion Gap 14.0 L POC BUN 25 H BUN Creatinine POC Creatinine 1.2 Est Cr Clr Drug Dosing Est GFR ( Amer) Est GFR (Non-Af Amer) BUN/Creatinine Ratio Glucose POC Glucose (other) 140 H Estimat Average Glucose Hemoglobin A1c Calcium POC Ioniz Calcium Clemencia 1.19 Magnesium 2.2 Total Bilirubin AST 18 ALT Alkaline Phosphatase Troponin I Total Protein Albumin Globulin Albumin/Globulin Ratio Homocysteine SARS-CoV-2 Ag (Rapid) Blood Type O Positive Antibody Screen NEGATIVE 08/23/20 08/23/20 08/23/20 22:38 Unknown Unknown WBC 7.45 RBC 4.67 L Hgb 14.3 POC Hgb Hct 42.7 POC Hct MCV 91.4 MCH 30.6 MCHC 33.5 RDW Std Deviation 43.7 RDW Coeff of Yaakov 13.2 Plt Count 188 MPV 10.1 Immature Gran % (Auto) 0.3 Neut % (Auto) 64.5 Lymph % (Auto) 21.2 [place] % (Auto) 8.7 Eos % (Auto) 4.4 Baso % (Auto) 0.9 Neut # (Auto) 4.80 Lymph # (Auto) 1.58 [place] # (Auto) 0.65 H Eos # (Auto) 0.33 Baso # (Auto) 0.07 Immature Gran # (Auto) 0.02 PT 11.2 Cancelled INR 1.1 Cancelled APTT 26.6 Cancelled PTT Ratio 1.0 Cancelled POC Sodium Sodium POC Potassium Potassium POC Chloride Chloride Carbon Dioxide POC Total CO2 Anion Gap POC Anion Gap POC BUN BUN Creatinine POC Creatinine Est Cr Clr Drug Dosing Est GFR ( Amer) Est GFR (Non-Af Amer) BUN/Creatinine Ratio Glucose POC Glucose (other) Estimat Average Glucose Hemoglobin A1c Calcium POC Ioniz Calcium Clemencia Magnesium Total Bilirubin AST ALT Alkaline Phosphatase Troponin I Total Protein Albumin Globulin Albumin/Globulin Ratio Homocysteine SARS-CoV-2 Ag (Rapid) Blood Type Antibody Screen 08/23/20 08/24/20 08/24/20 Unknown 00:05 07:50 WBC RBC Hgb POC Hgb Hct POC Hct MCV MCH MCHC RDW Std Deviation RDW Coeff of Yaakov Plt Count MPV Immature Gran % (Auto) Neut % (Auto) Lymph % (Auto) [place] % (Auto) Eos % (Auto) Baso % (Auto) Neut # (Auto) Lymph # (Auto) [place] # (Auto) Eos # (Auto) Baso # (Auto) Immature Gran # (Auto) PT INR APTT PTT Ratio POC Sodium Sodium 145 POC Potassium Potassium POC Chloride Chloride 117 H Carbon Dioxide 24 POC Total CO2 Anion Gap 4.0 POC Anion Gap POC BUN BUN 26 H Creatinine 1.25 POC Creatinine Est Cr Clr Drug Dosing 47.9 Est GFR ( Amer) 63.1 Est GFR (Non-Af Amer) 54.4 BUN/Creatinine Ratio 20.5 H Glucose 143 H POC Glucose (other) Estimat Average Glucose Hemoglobin A1c Calcium 8.3 L POC Ioniz Calcium Clemencia Magnesium Total Bilirubin 0.6 AST ALT 29 Alkaline Phosphatase 118 H Troponin I < 0.015 Total Protein 6.7 Albumin 3.5 Globulin 3.2 Albumin/Globulin Ratio 1.1 Homocysteine Pending SARS-CoV-2 Ag (Rapid) Negative Blood Type Antibody Screen 08/24/20 07:50 WBC RBC Hgb POC Hgb Hct POC Hct MCV MCH MCHC RDW Std Deviation RDW Coeff of Yaakov Plt Count MPV Immature Gran % (Auto) Neut % (Auto) Lymph % (Auto) [place] % (Auto) Eos % (Auto) Baso % (Auto) Neut # (Auto) Lymph # (Auto) [place] # (Auto) Eos # (Auto) Baso # (Auto) Immature Gran # (Auto) PT INR APTT PTT Ratio POC Sodium Sodium POC Potassium Potassium POC Chloride Chloride Carbon Dioxide POC Total CO2 Anion Gap POC Anion Gap POC BUN BUN Creatinine POC Creatinine Est Cr Clr Drug Dosing Est GFR ( Amer) Est GFR (Non-Af Amer) BUN/Creatinine Ratio Glucose POC Glucose (other) Estimat Average Glucose Pending Hemoglobin A1c Pending Calcium POC Ioniz Calcium Clemencia Magnesium Total Bilirubin AST ALT Alkaline Phosphatase Troponin I Total Protein Albumin Globulin Albumin/Globulin Ratio Homocysteine SARS-CoV-2 Ag (Rapid) Blood Type Antibody Screen PG Care Time/CCT Total # of Minutes Spent Total Time Spent with Patient: Total time spent is greater than 50% in coordination of care (as documented) at patient's floor/unit and/or counseling patient: Coding Level of Care Code 12524 Subseq Hosp Care Lvl 3 Diagnoses Stroke I63.9 CVA mechanism: unspecified H/O: stroke with residual effects I69.30 Ulnar neuropathy at elbow G56.20 Laterality: unspecified laterality Essential tremor G25.0 Mild obstructive sleep apnea G47.33 Benign prostatic hyperplasia with urinary obstruction N40.1; N13.8 DVT prophylaxis Z29.9 (1) Ulnar neuropathy at elbow Laterality: unspecified laterality Qualified Code(s): G56.20 - Lesion of ulnar nerve, unspecified upper limb (2) Stroke CVA mechanism: unspecified Qualified Code(s): I63.9 - Cerebral infarction, unspecified
--- NOTE | 2020-08-24 12:50 | Magnetic Resonance Report ---
MRI OF THE BRAIN WITHOUT IV CONTRAST CLINICAL HISTORY: Strokelike symptoms. COMPARISON STUDY: CT of the brain dated 08/23/2020. TECHNIQUE: MRI of the brain was performed utilizing various T1 and T2-weighted sequences in the axial , sagittal, and coronal planes. IV contrast was not administered for this examination. FINDINGS: Brain parenchyma: There is a 3 cm focus of restricted diffusion identified in the right temporo-occip ital cortex consistent with acute to subacute ischemia. No additional foci of acute ischemia are iden tified. A focus of left parieto-occipital encephalomalacia encephalomalacia is consistent with a lila te infarct. There is age-related involutional change noting mild to moderate subcortical and perivent ricular microangiopathic disease there is no hemorrhage or mass effect. No extra-axial fluid collecti on is seen. The cerebellar tonsils are normal in configuration. Ventricles, sulci, and cisterns: Prominent secondary to involutional change. Pituitary and sella: Unremarkable. Intracranial vasculature: Normal flow voids are maintained at the skull base. Orbits: The bony orbits are grossly intact. Orbital contents are normal in appearance noting bilatera l ocular lens implants. Sinuses and mastoids: An 11 mm retention cyst is noted in the left sphenoid sinus. The remaining para nasal sinuses and the mastoid air cells are clear. Calvarium: Unremarkable. Cervical cord: Partially visualized cervical spinal cord is normal in morphology and signal intensity . IMPRESSION: 1. There is an acute to subacute cortical infarct in the right temporo-occipital cortex. 2. No additional foci of acute ischemia are identified. There is no hemorrhage or mass effect. ACT 112: Negative or not required by law. Electronically signed by: Popeye Garza M.D. 08/24/2020 12:49 PM
--- NOTE | 2020-08-24 14:06 | Neurology Consultation ---
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 Symptom localization: Montalvo's loop Stroke mechanism: cardioembolic vs cryptogenic Stroke WorkUp: - CT head: no hemorrhage, hypodensity in left occipital lobe stable from prior - CTA head/neck: shows no LVO, high-grade stenosis or aneurysm, he does have right HYDRAULIC TESTER - MRI brain: subacute infarct in the right posterior parietal lobe, chronic infarct in the left occipital lobe, mild to moderate SVID with enlarged perivascular spaces, and mild generalized atrophy with ex vacuo dilation - TTE: pending - Telemetry: pending - A1c: pending - FLP: pending - Troponin, homocysteine: negative, pending Stroke Management: - Acute treatment: ASA - Continuous cardiac monitoring, will consider loop recorder as outpatient if telemetry here unrevealing - Vitals, Neurochecks, NIHSS per unit routine - BP parameters: SBP CAP 220 (until 8:30pm on 08/24/20), hold home anti- hypertensives for permissive HTN, IV Labetalol/Hydralazine PRN. After 8:30pm, CAP changes to 180 with goal normotension. - Complete ischemic stroke workup with TTE without bubble, A1c, fasting lipid panel - Consult speech, PT, OT for supportive management - Will apprise counselor concerning stroke education, smoking cessation, healthy diet, physical activity, weight loss - Follow up with PCP for assistance with outpatient goals (BP <130/80, LDL <70, A1c <7) - Follow up in neurology clinic in 6-8 weeks (he follows with Dr Ruff) Secondary Stroke Prevention: - Antiplatelet: aspirin 81mg po daily plus brillinta 90mg bid (24 hours after last plavix dose) - Anticoagulation: Not indicated at this time - Statin: continue home pravastatin pending LDL HTN: - BP parameters, as above - Hold home BP meds (propranolol) for now in favor of permissive HTN FEN/GI: - Diet: Cardiac HH diet and PO meds given absence of bulbar signs or symptoms - Monitor lytes and replete PRN Glucose Control: - Sliding scale insulin and accuchecks per primary team to avoid hyperglycemia Thank you for this interesting consult. Plan of care was discussed with primary team. Please call with any questions. 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 In the ED, he was afebrile, BP 140/73, heart rate 67, respiratory rate 16 satting 98% on room air. Labs notable for WBC 7.45, hemoglobin 14.3, platelets 188, sodium 145, BUN 26, creatinine 1.25, glucose 143, INR 1.1, troponin negative. Imaging independently reviewed. CT head shows no hemorrhage, hypodensity in left occipital lobe stable from prior. CTA head and neck shows no LVO, high-grade stenosis or aneurysm, he does have right HYDRAULIC TESTER. MRI brain shows a subacute infarct in the right posterior parietal lobe, chronic infarct in the left occipital lobe, mild to moderate SVID with enlarged periv ascular spaces, and mild generalized atrophy with ex vacuo dilation. On examination, he reports that he started to have full visual field symptoms on 08/23 as above while watching tv. Reports that his entire vision in both eyes is affected and continues to be affected today. Denies any other numbness, tingling, weakness or speech difficulties. Has not missed any doses of plavix prior to coming to the hospital. Stroke Workflow: CT ASPECT: 10 Time IV tpa is given: NA tPA bolus: NA tPA dose: NA If tpa not given, why not: rapid recovery of symptoms with NIHSS 0 on re-check If delay >60min after hospital arrival, why: n/a If no IA therapy, why not: No LVO on CTA Patient Features: Admission NIHSS: 1 -> 0 Admission Modified Melvina Scale: 1 Time patient last seen well: 8:30pm on 08/23/20 Wake up stroke: No Intubation status: Not intubated Stroke Risk Factors: Hypertension: Y Hyperlipidemia: Y Atrial Fib: N Tobacco: N Diabetes: N Taking NOAC or warfarin: N Allergies Allergy/AdvReac Type Severity Reaction Status Date / Time Sulfa (Sulfonamide Allergy Mild Rash Verified 08/23/20 22:01 Antibiotics) Home Medications Medication Instructions Recorded Confirmed Type Caltrate 600 plus D 1 tab PO DAILY 08/22/18 08/23/20 History ascorbic acid (vitamin C) [Vitamin 1,000 mg PO QAM 08/22/18 08/23/20 History C] lutein 20 mg PO QAM 08/22/18 08/23/20 History multivitamin 1 tab PO DAILY 04/21/19 08/23/20 History propranolol 60 mg capsule,24 60 mg PO DAILY 90 Days #90 cap 06/18/20 08/23/20 Rx hr,extended release finasteride 5 mg tablet 5 mg PO QAM #90 tab 07/03/20 08/23/20 Rx pravastatin 10 mg tablet 10 mg PO QPM #90 tab 07/15/20 08/23/20 Rx amoxicillin See Rx Instructions PO ONCE PRN 08/23/20 08/23/20 History clopidogrel 75 mg PO QPM 08/23/20 08/23/20 History topiramate See Rx Instructions .ROUTE .COMPLEX 08/23/20 08/23/20 History Patient History Medical History (Updated 08/24/20 @ 14:12 by Sue Garcia MD) BPH (benign prostatic hyperplasia) Cancer SKIN CANCER-[facility] Cardiac murmur Essential tremor RT ARM Hearing deficit BILAT. Hypertension Macular degeneration Osteoarthritis Stroke DECEMBER 2017 - ON PLAVIX - NO DEFICITS Surgical History H/O thumb surgery CYST REMOVED FROM THUMB History of anesthesia reaction WOKE UP IN THE MIDDLE OF INGUINAL SURGERY. History of colonoscopy W/ POLYPECTOMY History of herniorrhaphy BILAT INGUINAL HERNIA History of phacoemulsification of cataract of right eye with intraocular lens implantation History of tooth extraction Family History Father Alzheimer disease Unknown Prostate cancer Heart disease Other No family history of adverse response to anesthesia Social History Smoking Status: Never smoker Second Hand Exposure: No; Hx Alcohol Use: No Hx Substance Use: No Preferred Language: [place] Communication Ability: Effective Newscast Director Required: No Beliefs That Will Affect Care: None marital status: Current Living Situation: Spouse Feels Safe at Home: Yes Assistive Devices: Glasses and Hearing Aid - Bilateral Review of Systems Review of Systems: 14 point review of systems completed and negative except as in HPI. Exam (Neuro) Physical Exam: General Exam: GEN: NAD, sitting down in examination bed. HEENT: No conjunctival injection, no rhinorrhea. CV: RRR on monitor, no significant edema. PULM: Nonlabored respirations on room air. Neuro Exam: MS: Awake and Alert. Oriented to person, place, and date. Speech fluent and appropriate without dysarthria or paraphasic errors. Language intact including naming, comprehension, repetition. Cognition and memory grossly intact. Attention intact. No neglect. CN: Visual starkey full, + blink to threat bilaterally. No extinction to double simultaneous stimuli. Unable to visualize fundi on fundoscopic exam. PERRLA OU. EOMI without nystagmus. Facial sensation intact to LT. Facial muscles full and symmetric. Hearing intact to finger rub bilaterally. Uvula midline with symmetric palatal elevation. Shoulder shrug normal. Tongue midline. MOTOR: Normal bulk and tone. No pronator drift. BUE strength 5/5 at deltoids, biceps, triceps, wrist flexors and extensors, and finger flexors bilaterally. BLE strength 5/5 at iliopsoas, hamstrings, quadriceps, tibialis anterior, and gastrocnemius bilaterally. REFLEXES: 1+ at biceps, triceps, brachioradialis, trace patella, and absent Achilles bilaterally. Flexor plantar responses bilaterally. SENSORY: Intact to LT/vibration/temperature throughout, no extinction to double simultaneous stimuli. COORDINATION: No dysmetria or ataxia on [id number] bilaterally. Normal Obed bilaterally. GAIT: Deferred due to physical status. NIH STROKE SCALE 1A. Level of Consciousness (0-3) = 0 1B. LOC Questions (0-2) = 0 1C. LOC Commands (0-2) = 0 2. Best Horizontal Gaze (0-2) = 0 3. Visual Starkey (0-3) = 0 4. Facial Palsy (0-3) = 0 5. Motor Arm Right (0-4) = 0 Left (0-4) = 0 6. Motor Leg Right (0-4) = 0 Left (0-4) = 0 7. Limb Ataxia (0-2) = 0 8. Sensory (0-2) = 0 9. Best Language (0-3) = 0 10. Dysarthria (0-2) = 0 11. Extinction and Inattention (0-2) = 0 NIHSS TOTAL = 0 Results & Data ([facility]) Vital Signs (Past 12 Hours) Vital Signs Temp Pulse Pulse Resp BP BP Pulse Ox 08/24/20 11:25 36.7 C 57 L 18 108/63 97 08/24/20 07:46 36.7 C 56 L 18 96/51 L 95 08/24/20 07:42 55 L 08/24/20 05:51 64 08/24/20 02:25 36.6 C 59 L 18 142/80 H 97 PG Care Time/CCT Total # of Minutes Spent Total Time Spent with Patient: Total time spent is greater than 50% in coordinat ion of care (as documented) at patient's floor/unit and/or counseling patient: Coding Level of Care Code 87413 Initial Inpt Care Lvl 3 Diagnoses Stroke I63.9 H/O: stroke with residual effects I69.30 Hypertension I10
--- NOTE | 2020-08-24 17:55 | XCELERA ---
[id number]
[2020-08-24] MEDS: ASPIRIN 81 MG ECTAB PO SCH (18:16)
[2020-08-24] MEDS: TICAGRELOR 90 MG TAB PO SCH (20:59)
[2020-08-24] MEDS ORDERED: PRAVASTATIN SOD 10 MG TAB PO SCH (21:00)
[2020-08-24] MEDS ORDERED: TOPIRAMATE 50 MG TAB PO SCH (21:00)
[2020-08-24] MEDS ORDERED: CLOPIDOGREL BISULFATE 75 MG TAB PO SCH (21:00)
[2020-08-25 07:18] LABS: BUN Creatinine Ratio 14.9 (10-20); Calcium 8.4 mg/dl (8.5-10.1); Creatinine Clr Calc Pharmacy 64.4 ml/min; Est GFR (African American) 90.2; Est GFR (Non-African American) 77.8; Potassium 3.9 mmol/L (3.5-5.1)
[2020-08-25] MEDS ORDERED: ENOXAPARIN INJ 40 MG/0.4 ML SYR SQ SCH (09:00)
[2020-08-25] MEDS: SODIUM CHLORIDE 0.9% 1000ML 1,000 ML IV SCH (09:04)
[2020-08-25] MEDS: ASCORBIC ACID 500 MG TAB PO SCH (09:07)
[2020-08-25] MEDS: TOPIRAMATE 50 MG TAB PO SCH (09:07)
[2020-08-25] MEDS: FINASTERIDE 5 MG TAB PO SCH (09:07)
[2020-08-25] MEDS: CALCIUM 600MG + VIT D 400 IU TAB PO SCH (09:07)
[2020-08-25] MEDS: ASPIRIN 81 MG ECTAB PO SCH (09:07)
[2020-08-25] MEDS: MULTIVITAMIN TAB PO SCH (09:08)
[2020-08-25] MEDS: TICAGRELOR 90 MG TAB PO SCH (09:09)
--- NOTE | 2020-08-25 09:25 | Neurology Progress Note ---
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 - MRI brain: subacute infarct in the right posterior parietal lobe, chronic infarct in the left occipital lobe, mild to moderate SVID with enlarged perivascular spaces, and mild generalized atrophy with ex vacuo dilation - TTE: EF 60-65%, mild LVH, mild aortic sclerosis without stenosis, mild MR, mild pulmonary HTN - Telemetry: pending - A1c: pending - FLP: 53 - Troponin, homocysteine: negative, 8.5 Stroke Management: - Acute treatment: ASA - Continuous cardiac monitoring, will consider loop recorder as outpatient if telemetry here unrevealing - Vitals, Neurochecks, NIHSS per unit routine - BP parameters: SBP CAP 180 with goal normotension. - Consult speech, PT, OT for supportive management - Will veterans rehabilitation counselor concerning stroke education, smoking cessation, healthy diet, physical activity, weight loss - Follow up with PCP for assistance with outpatient goals (BP <130/80, LDL <70, A1c <7) - Follow up in neurology clinic in 6-8 weeks (he follows with Dr Ruff) Secondary Stroke Prevention: - Antiplatelet: aspirin 81mg po daily plus brillinta 90mg bid (24 hours after last plavix dose) - Anticoagulation: Not indicated at this time - Statin: continue home pravastatin HTN: - BP parameters, as above - Restart home BP meds (propranolol) for goal normotension FEN/GI: - Diet: Cardiac HH diet and PO meds given absence of bulbar signs or symptoms - Monitor lytes and replete PRN Glucose Control: - Sliding scale insulin and accuchecks per primary team to avoid hyperglycemia Thank you for this interesting consult. Plan of care was discussed with primary team. Please call with any questions. (2) H/O: stroke with residual effects: (3) Hypertension: Admission and Anticipated Discharge Date Admission Date: August 24, 2020 Subjective NAEs overnight. Had TTE performed which is stable from prior in 2018 (full results below). LDL within goal, A1c pending. He reports that around midnight last night, his vision returned to his baseline and has stayed that way this morning. Reviewed results with him and change to asa/brillinta going forward. Review of Systems Review of Systems: 14 point review of systems completed and negative except as in HPI. Results & Data ([facility]) Vital Signs (Past 12 Hours) Vital Signs Temp Pulse Resp BP Pulse Ox 08/25/20 07:39 36.5 C 56 L 20 96/59 L 94 08/25/20 02:58 36.6 C 58 L 19 126/80 96 Exam (Neuro) Physical Exam: General Exam: GEN: NAD, sitting down in examination bed. HEENT: No conjunctival injection, no rhinorrhea. CV: RRR on monitor, no significant edema. PULM: Nonlabored respirations on room air. Neuro Exam: MS: Awake and Alert. Oriented to person, place, and date. Speech fluent and appropriate without dysarthria or paraphasic errors. Language intact including naming, comprehension, repetition. Cognition and memory grossly intact. Attention intact. No neglect. CN: Visual starkey full, + blink to threat bilaterally. No extinction to double simultaneous stimuli. Unable to visualize fundi on fundoscopic exam. PERRLA OU. EOMI without nystagmus. Facial sensation intact to LT. Facial muscles full and symmetric. Hearing intact to finger rub bilaterally. Uvula midline with symmetric palatal elevation. Shoulder shrug normal. Tongue midline. MOTOR: Normal bulk and tone. No pronator drift. BUE strength 5/5 at deltoids, biceps, triceps, wrist flexors and extensors, and finger flexors bilaterally. BLE strength 5/5 at iliopsoas, hamstrings, quadriceps, tibialis anterior, and gastrocnemius bilaterally. REFLEXES: 1+ at biceps, triceps, brachioradialis, trace patella, and absent Achilles bilaterally. Flexor plantar responses bilaterally. SENSORY: Intact to LT/vibration/temperature throughout, no extinction to double simultaneous stimuli. COORDINATION: No dysmetria or ataxia on [id number] bilaterally. Normal Obed bilaterally. GAIT: Deferred due to physical status. NIH STROKE SCALE 1A. Level of Consciousness (0-3) = 0 1B. LOC Questions (0-2) = 0 1C. LOC Commands (0-2) = 0 2. Best Horizontal Gaze (0-2) = 0 3. Visual Starkey (0-3) = 0 4. Facial Palsy (0-3) = 0 5. Motor Arm Right (0-4) = 0 Left (0-4) = 0 6. Motor Leg Right (0-4) = 0 Left (0-4) = 0 7. Limb Ataxia (0-2) = 0 8. Sensory (0-2) = 0 9. Best Language (0-3) = 0 10. Dysarthria (0-2) = 0 11. Extinction and Inattention (0-2) = 0 NIHSS TOTAL = 0 PG Care Time/CCT Total # of Minutes Spent Total Time Spent with Patient: Total time spent is greater than 50% in coordination of care (as documented) at patient's floor/unit and/or counseling patient: Coding Level of Care Code 07664 Subseq Hosp Care Lvl 3 Diagnoses Stroke I63.9 CVA mechanism: unspecified H/O: stroke with residual effects I69.30 Hypertension I10 (1) Stroke CVA mechanism: unspecified Qualified Code(s): I63.9 - Cerebral infarction, unspecified
--- NOTE | 2020-08-25 13:28 | Discharge Summary ---
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 Patient was in his usual state of health denying any recent constitutional symptoms, illnesses, Covid contacts, or other concerning signs or symptoms. Patient endorses being a little tired, he sat down to watch a football game this evening on TV when he noticed the inability to see certain letters. The symptoms caused him to present to the emergency room, in the em ergency room he was given the imaging studies detailed below. He stated his symptoms resolved temporarily, however upon moving to a different room his symptoms resumed. As an example of his symptoms he endorsed inability to see the second T and [place], or the D in deal on the TV. He states he is unable to find a pattern and his inability to see letters, and was also concerned earlier while watching the game that he was unable to see certain players on the field. The patient reports no other neuro symptoms and has no other acute findings. All questions were answered no acute concerns, the primary team was called for admission given the patient's new neuro symptoms. Upon arrival to the emergency department routine lab work was obtained, CBC within normal limits, coags within normal limits, CMP demonstrating BUN of 26, glucose of 143, alk phos of 118 Covid test pending. Imaging studies were obtained neck CTA shows no significant stenosis occlusion or aneurysm within the pauma of [place], no significant stenosis, occlusion, or dissection to divide within the carotid or vertebral arteries. Head CTA demonstrated no significant change compared to prior study no acute intracranial abnormalities. Principal Diagnosis visual disturbance 2nd to new right-sided stroke Discharge Exam Constitutional well developed and well nourished; no acute distress and no altered mental status Eyes PERRL; + abnormal visual field confrontation (R-sided inferior quandrantopia ) ENMT external ear and nose normal, oropharynx normal Respiratory normal respiratory effort, lungs clear to auscultation Cardiovascular Rate/Rhythm: regular rate and regular rhythm Heart Sounds: normal S1 and normal S2; no murmur Vessels: posterior tibial pulses present and dorsalis pedis pulses present; no JVD Extremities: no edema Gastrointestinal (Abdomen) normal bowel sounds, soft, nontender, no hepatosplenomegaly Neurologic moves all extremities; no focal motor deficits Speech / Cognition: normal speech Motor/Sensory: no pronator drift Cranial Nerves: normal facial strength and no nystagmus Gait: no ataxic gait Coordination: normal [id number] test Psychiatric A+Ox3, euthymic affect Discharge Data Allergies Allergy/AdvReac Type Severity Reaction Status Date / Time Sulfa (Sulfonamide Allergy Mild Rash Verified 08/23/20 22:01 Antibiotics) Consultations [facility] [place] Neurology PT, OT, speech Case Management - Discharge Planning Ordered Studies 08/23/20 21:45 CT angio head w con Stat - no occlusion, aneurysm, or dissection. CT angio neck with con Stat - no occlusion, aneurysm, or dissection. CT head/brain wo con Stat - Findings: The paranasal sinuses and mastoid air cells are clear. The calvarium and skull base are intact. There is no mass, hematoma, midline shift, acute infarct. White matter hypodensity is nonspecific but suggestive of microvascular ischemic change. The ventricles and sulci demonstrate mild age-related involutional changes. There is an old small left posterior parietal lobe i nfarct. This remains unchanged. 08/24/20 00:07 MR brain wo con FINDINGS: Brain parenchyma: There is a 3 cm focus of restricted diffusion identified in the right temporo-occipital cortex consistent with acute to subacute ischemia. No additional foci of acute ischemia are identified. A focus of left parieto- occipital encephalomalacia encephalomalacia is consistent with a remote infarct. There is age-related involutional change noting mild to moderate subcortical and periventricular microangiopathic disease there is no hemorrhage or mass effect. No extra-axial fluid collection is seen. The cerebellar tonsils are normal in configuration. Echocardiogram * EF 60-65% * mild LVH * mild mitral regurgitation * mild pulmonary HTN * mildly dilated IVC * bubble study not completed Hospital Course (1) Stroke: Presenting symptoms - visual changes as noted in the history of present illness section of this d/c summary. Symptoms persisted for about 30 hours then resolved. MRI brain with acute CVA right temporal-occipital region. MRI brain also shows prior CVA in left occipital region. Current CVA occurred while taking plavix. CTA head/neck without abnormalities. Telemetry did not show any a.fib or a.flutter. Echo without thrombus or significant valvular abnormalities. Etiology of stroke was uncertain. Etiology of his prior stroke in 2018 also uncertain. Occult embolus from PAF? Other cardiac abnormality? Patient was seen in consult by [facility] [place] Neurology. The following were recommended: * loop recorder implantation to rule out occult PAF * discontinuation of plavix * initiation of low-dose aspirin 81mg daily * initiation of Brilinta 90mg BID * ongoing use of pravastatin (LDL was 53 while here) Shortly after discharge we ascertained that loop recorder implantation would not be possible for 4-6 weeks post-discharge because of the COVID-19 pandemic. Thus, we advised patient to have a 30-day event monitor first. This will be mailed to his home with instructions on its use. If 30-day event monitor fails to show any abnormalities then patient can be referred to [facility] [place] cardiology for loop recorder implantation. Lastly, patient was advised to follow-up with his eye physician for an eye exam, visual field testing, etc shortly after discharge. Recommended no driving until cleared by his eye physician. (2) Visual disturbance due to recent stroke: Present for about 30 hours then resolved. See "stroke" above. (3) H/O: stroke with residual effects: 2018 - CVA left occipital lobe with resulting visual field cut on right. Now with new stroke right temporal-occipital region - etiology uncertain. See above. (4) Ulnar neuropathy at elbow: f/u orthopedics as outpatient for this. Unrelated to acute CVA. (5) Essential tremor: Typically takes inderal for this. HOWEVER, BPs were low or low-normal during the stay. Thus, in light of his acute stroke, I recommended he hold his inderal until he has f/u with his outpatient physicians. (6) Mild obstructive sleep apnea: Not on NIPPV for such. (7) Benign prostatic hyperplasia with urinary obstruction: Cont home meds. Total Time Total Time Spent Total Time Spent (In Minutes): 40 Total Time Includes: Examination of the Patient, Discharge Planning, Medication Reconciliation and Communication With Other Providers Discharge Plan Discharge Items Patient Disposition: Home - Self-Care Reason For Visit: VISUAL DISTURBANCE Discharge Diagnosis: Stroke of right side of brain affecting vision -- visual symptoms improved; cause of stroke uncertain; additional work-up to be done as outpatient Activity: As commented below Activity Comment: gradually increase your activities over the next 5 days Driving/Machine Use: NO DRIVING until cleared by your eye doctor Non-emergency contact: Primary Care Provider and Wash 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 ) Diet: Heart Healthy Addtl Attending Provider Instructions: You presented to the hospital with visual disturbance/complaints and an MRI of the brain showed a right-sided stroke near the visual center of the brain. Fortunately your symptoms improved while hospitalized. The stroke did not affect your strength in your arms or legs, your speech, or your swallowing. You did well with PT/OT/speech. The [facility] Neurologist saw you in consult and has recommended -- 1. discontinuing your plavix 2. starting baby aspirin 81mg daily 3. starting brillinta 90mg twice daily 4. both the aspirin and brillinta will hopefully prevent a future stroke 5. consideration of loop recorder placement by [facility] Cardiology; this is a small device that goes under your skin in your chest region that monitors your heart. We are looking for abnormal heart rhythms like a.fib that can cause blood clot formation and ultimately a stroke. 6. please obtain an eye exam THIS WEEK to check your visual burns, etc. at your eye doctor's office Additional recommendations - Your blood pressures were low while here. Please STOP your propranolol for now especially in the setting of your recent stroke. 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 Follow-up - see separate section Return to [facility] if - * you experience recurrent worsening vision * you have difficulty walking / imbalance * you have vertigo/spinning sensation * you have difficulty speaking or swallowing * you have difficulty moving an arm or leg or both * you have significant numbness particularly on one side of the body * any other stroke symptoms It was my pleasure caring for you. Please stay well! -Dr Jaylen Morelandtl [employer] Provider Instructions: Risk Factors for Stroke: You can reduce your chances of stroke by working with your medical provider to adopt a healthy lifestyle. Some specific ways to lower your chance of stroke are: * If you are a smoker, now is the time to stop smoking cigarettes * If you are diabetic, improve the control of your blood sugars * Avoid excessive amounts of alcohol * Control high blood pressure * Lose weight if you are overweight * Be sure to lead an active lifestyle * Eat a healthy diet low in salt, cholesterol and fat You should know about other risk factors for stroke that you are unable to control. These include: * Age 55 years or older * Male gender * Certain racial groups: , or / * Family History of Stroke, Mini stroke or Heart Attack * Sickle Cell Disease Follow Up: It is important for you to keep your follow up appointments with your medical provider. Who to Call and When: Medical Emergencies: Call 911 immediately if you experience any of the following warning signs and symptoms of Stroke: * Sudden numbness or weakness of the face, arm or leg, especially on one side of the body * Sudden confusion, trouble speaking or understanding * Sudden trouble seeing in one or both eyes * Sudden trouble walking, dizziness, loss of balance or coordination * Sudden severe headache with no cause Do not delay calling 911 if you experience any warning signs or symptoms of a stroke. Delay in seeking medical attention may affect what treatments can be given to you. . Pending Studies at Discharge: No Stand-Alone Forms: My [facility], Smoking Cessation Medications and DC Order Prescriptions: New aspirin 81 mg Tablet,Delayed Release (Dr/Ec) 81 mg PO QAM Qty: 90 RF: 3 Brilinta 90 mg Tablet 90 mg PO BID Qty: 60 RF: 5 pantoprazole [Protonix] 40 mg tablet,delayed release (DR/EC) 40 mg PO DAILY Qty: 30 RF: 5 Continued pravastatin 10 mg tablet 10 mg PO QPM Qty: 90 RF: 3 finasteride 5 mg tablet 5 mg PO QAM Qty: 90 RF: 3 multivitamin [Multiple Vitamins] tablet 1 tab PO DAILY RF: 0 amoxicillin 500 mg capsule See Rx Instructions PO ONCE PRN (Reason: Prior to Dental Procedure) RF: 0 topiramate 50 mg tablet See Rx Instructions .ROUTE .COMPLEX RF: 0 ascorbic acid (vitamin C) [Vitamin C] 1,000 mg Tablet 1,000 mg PO QAM RF: 0 lutein 20 mg Capsule 20 mg PO QAM RF: 0 Caltrate 600 plus D 600 mg (1,500 mg)-800 unit Tablet,Chewable 1 tab PO DAILY RF: 0 Discontinued propranolol 60 mg capsule,extended release 24 hr 60 mg PO DAILY 90 Days Qty: 90 RF: 1 clopidogrel 75 mg tablet 75 mg PO QPM RF: 0 Discharge Orders: Discharge Order (Routine); Ordered 08/25/20 Ordered By: Tulio York Admission Data Admit Date/Time: 08/24/20 17:32 Attending Provider: Tulio York Admit Provider: Willow Guevara Primary Care Provider: Wayne Barrera Other Providers: Sue Garcia Other Interventions: Discharge Summary Assessment (RN) Last Done: 08/25/20 14:09 Coding Level of Care Code D/C Day Management >30 mins Diagnoses Stroke I63.9 CVA mechanism: unspecified Visual disturbance due to recent stroke I69.398; H53.9 H/O: stroke with residual effects I69.30 Ulnar neuropathy at elbow G56.20 Laterality: unspecified laterality Essential tremor G25.0 Mild obstructive sleep apnea G47.33 Benign prostatic hyperplasia with urinary obstruction N40.1; N13.8
--- NOTE | 2020-08-25 20:21 | Electrocardiogram Report ---
Test Reason : Blood Pressure : / mmHG Vent. Rate : 066 BPM Atrial Rate : 066 BPM P-R Int : 222 ms QRS Dur : 094 ms QT Int : 406 ms P-R-T Axes : 034 -27 016 degrees QTc Int : 425 ms Sinus rhythm with 1st degree A-V block Incomplete right bundle branch block Septal infarct (cited on or before 23-AUG-2020) Abnormal ECG When compared with ECG of 02-APR-2018 09:27, No significant change was found Confirmed by Lenny Mcadams ([id number]) on 08/25/2020 8:20:43 PM Referred By: REFERRED SELF Confirmed By:Lenny Mcadams
[2020-08-26 07:12] LABS: Estimated Average Glucose 117 mg/dl; Hemoglobin A1C 5.7 % (4.5-5.6)
== END 2020-08-25 14:35 | disposition home or self-care (01) | DRG 65 ==
LOC: 2N 21:34 → ED 21:34 → SUATTDRO 08-24 00:08 → 2N 08-24 01:50